=== PATIENT | male | born 1960 | race Caucasian/White ===

== ENCOUNTER 2019-12-08 12:05 | Inpatient (IN) | payer MEDICAID, OTHER ==
[~2019-12-08] VITALS: Ht 172.7 cm; Wt 120.2 kg
[2019-12-08] MEDS ORDERED: LORAZEPAM INJ 2 MG/ML VIAL IVP ONE (13:00)
[2019-12-08] MEDS ORDERED: LORAZEPAM INJ 2 MG/ML VIAL ONE ×2 (13:11→14:52)
--- NOTE | 2019-12-08 13:18 | NUR ---
ABA FROM STREET TO ER BED 5. AAOX1. TACHYPNEIC. BROUGHT IN FOUND ON THE FLOOR LYING GFACING DOWN AND NOTED TO BE IN RESPIRATORY DISTRESS DESCRIDE BY THE PARAMEDICS. WHEN PT WAS ASSISTED TO GET UP, PT GOT AGITATED. UPON ASSESSMENT, PT IS CONFUSED DOES DARWIN MAKE ANY SENSE ON WHAT HE WAS SAYING. ABLE TO FOLLOW SIMPLE COMMANDS. PT IS NOTE TACHYCARDIC ON MONITOR @ 130S AND HYPERTENSIVE. PT IS ALSO PLACED ON O2 VIA NC D/T O2 SAT NOTED @ 92%. WAS AT THE BEDSIDE FOR EVAL ORDERS RECEIVES NOTED AND CARRIED OUT. IV LINE ESTABLSHED ON L WRIST 18G. BLOOD DRAWN AND GIVEN TO MINE EXPLORATION ENGINEER AT BEDSIDE. WILL CONTINUE TO MONITOR PT
[2019-12-08 13:34] LABS: HEMATOCRIT 45 % (39-51); HEMOGLOBIN 15.7 g/dL (13.5-17.5); LYMPHOCYTES # (AUTO) 0.7 /CMM (0.8-4.8); LYMPHOCYTES % (AUTO) 6.1 % (20.0-44.0); MEAN CORPUSCULAR HGB CONC 35 g/dl (31.0-36.0); MEAN CORPUSCULAR VOLUME 120 fL (80-96); MONOCYTES # (AUTO) 1.4 /CMM (0.1-1.30); MONOCYTES % (AUTO) 13.2 % (2.0-12.0); NEUTROPHILS # (AUTO) 8.7 /CMM (1.8-8.9); NEUTROPHILS % (AUTO) 80.7 % (43.0-81.0); PLATELET COUNT (AUTO) 92 /CMM (150-450); RED BLOOD CELL COUNT(AUTO) 3.72 MIL/uL (4.5-6.0); WHITE BLOOD COUNT (AUTO) 10.8 K/uL (4.3-11.0)
[2019-12-08 14:02] LABS: ALANINE AMINOTRANSFERASE 37 U/L (12-78); ALBUMIN 2.8 g/dL (3.4-5.0); ALCOHOL, BLOOD < 3 mg/dL (0-0); ALKALINE PHOSPHATASE 75 U/L (46-116); ASPARTATE AMINOTRANSFERASE 97 U/L (15-37); BILIRUBIN,DIRECT 2.1 mg/dL (0.0-0.2); BILIRUBIN,TOTAL 4.3 mg/dL (0.2-1.0); CALCIUM, SERUM 7.9 mg/dL (8.5-10.1); CARBON DIOXIDE 26 mmol/L (21-32); CHLORIDE 89 mmol/L (98-107); CREATININE 0.9 mg/dL (0.6-1.3); GLUCOSE 151 mg/dL (74-106); SODIUM SERUM 130 mmol/L (136-145); TOTAL PROTEIN, SERUM 7.4 g/dL (6.4-8.2); UREA NITROGEN, BLOOD 6 mg/dL (7-18)
--- NOTE | 2019-12-08 14:02 | NUR ---
ok for ct to be held until pt is not moving around too much
[2019-12-08 14:06] LABS: ACETAMINOPHEN < 3 ug/ml (10-30); POTASSIUM 2.5 mmol/L (3.5-5.1)
--- NOTE | 2019-12-08 14:10 | NUR ---
URINE COLLECTED VIA IN AND OUT WITH STRCIT STERILE TECHNIQUE OBSERVED DURING PROCEDURE. URINE SENT TO LAB
[2019-12-08 14:23] LABS: BILIRUBIN,URINE LARGE (NEGATIVE); BLOOD, URINE Large Ery/uL (NEGATIVE); COLOR,URINE Dark (YELLOW); LEUKOCYTE ESTERASE ,URINE Negative (NEGATIVE); NITRITE, URINE Negative (NEGATIVE); PH,URINE 6.5 (5.0-8.0); PROTEIN,URINE >=300 mg/dl (NEGATIVE); UGLUCOSE 100 MG/DL mg/dL (NEGATIVE); UROBILINOGEN,URINE >=8.0 EU/dL (0.2)
[2019-12-08 14:28] LABS: BACTERIA,URINE Few /HPF (None Seen); SQUAMOUS EPITHELIAL CELL,UR Few /HPF (None Seen)
[2019-12-08 14:29] LABS: THYROID STIMULATING HORMONE 1.193 uIU/mL (0.358-3.74)
--- NOTE | 2019-12-08 14:30 | NUR ---
PAGED [facility].
--- NOTE | 2019-12-08 14:50 | NUR ---
EKG ATD BEDSIDE
--- NOTE | 2019-12-08 14:50 | NUR ---
XRAY AT BEDSIDE
[2019-12-08] MEDS ORDERED: IV NS 0.9% 1,000 ML IV ONE (15:00)
--- NOTE | 2019-12-08 15:02 | NUR ---
CALLED NURSING SUP FOR TELE BED.
[2019-12-08] MEDS ORDERED: POTASSIUM CL. PREMIX PERIPHER. 50 ML ONE ×2 (15:11→16:32)
[2019-12-08] MEDS: POTASSIUM CL. PREMIX PERIPHER. 50 ML IV SCH ×2 (15:17→16:39)
[2019-12-08 15:24] LABS: LYMPHOCYTES % (MANUAL) 6 % (16-48); MONOCYTES % (MANUAL) 5 % (0-11.0); NEUTROPHILS % (MANUAL) 89 (42-76)
--- NOTE | 2019-12-08 15:26 | NUR ---
NURSING SUP GAVE ICU 255.
[2019-12-08] MEDS ORDERED: LORAZEPAM INJ 2 MG/ML VIAL IV ONE (15:30)
[2019-12-08 15:56] LABS: ABG BASE EXCESS -1.6 mmol/L; ABG OXYGEN SATURATION 96.1 % (92.0-98.5); ABG PCO2 24.5 mmHg (35.0-45.0); ABG PH 7.515 (7.350-7.450); ABG PO2 85.5 mmHg (75.0-100.0); AaDO2 142.8 mmHg; COHb 0.8 % (0.5-1.5); MetHb 0.4 % (0.0-1.5); O2Hb 94.9 % (94.0-97.0); SITE, ABG Right Radial
[2019-12-08] MEDS ORDERED: MAGNESIUM HYDROXIDE 30 ML UDC PO PRN (16:00)
[2019-12-08] MEDS ORDERED: IV NS 0.9% 1,000 ML IV PRN (16:00)
[2019-12-08] MEDS ORDERED: ONDANSETRON HCL/PF 4 MG/2 ML VIAL IVP PRN (16:00)
[2019-12-08] MEDS ORDERED: MAG HYDROX/AL HYDROX/SIMETH 30 ML UDC PO PRN (16:00)
[2019-12-08] MEDS ORDERED: ACETAMINOPHEN 325 MG TABLET PO PRN (16:00)
--- NOTE | 2019-12-08 16:01 | NUR ---
called to give report. nurse not yet ready. asked to call back in 15min
--- NOTE | 2019-12-08 16:22 | NUR ---
REPORT GIVEN TO REGINA COFFEY FOR YANETH
[2019-12-08] MEDS ORDERED: FUROSEMIDE 20 MG/2 ML VIAL IV ONE (16:30)
[2019-12-08] MEDS ORDERED: ASPIRIN 325 MG TABLET PO SCH (16:30)
--- NOTE | 2019-12-08 16:32 | NUR ---
CALLED DR SALGADO FOR A DR TO
--- NOTE | 2019-12-08 16:38 | NUR ---
DR KIM NORRIS FOR DR AN
[2019-12-08] MEDS ORDERED: PROPOFOL 100 ML ONE ×4 (16:42→23:55)
[2019-12-08] MEDS ORDERED: CEFTRIAXONE 1 G in IV D5W 50 ML IV SCH (17:00)
[2019-12-08] MEDS ORDERED: ENOXAPARIN SODIUM 40 MG/0.4 ML DISP.SYRIN SQ SCH (17:00)
--- NOTE | 2019-12-08 17:24 | NUR ---
RAPID COVID RESULT: NEGATIVE
--- NOTE | 2019-12-08 17:24 | NUR ---
md was at the bedside ready for intubation and central line insertion. pt is aao but pt is refusing to be intubated nor insert a central line. md and nurse explained to pt multiple times about the risk and benefits. pt made aware the he can , pt acknowledge.
--- NOTE | 2019-12-08 17:25 | NUR ---
CALLED DR ALVAREZ FOR A DR TO SPEAKING ON PHONE NOW.
--- NOTE | 2019-12-08 17:27 | NUR ---
MADE HOUSE SUP AWARE OF RAPID COVID RESULT
[2019-12-08] MEDS ORDERED: NOREPINEPHRINE 8 MG in IV NS 0.9% 250 ML IV ONE (17:30)
[2019-12-08] MEDS ORDERED: AZITHROMYCIN 500 MG in IV D5W 250 ML IV SCH (18:00)
--- NOTE | 2019-12-08 18:01 | NUR ---
md at bedside ready for intubation. vs
[2019-12-08] MEDS: NOREPINEPHRINE 8 MG in IV NS 0.9% 242 ML IV PRN (18:05)
[2019-12-08] MEDS: PIPERACILLIN /TAZOBACTAM 3.375 G in IV D5W 50 ML IV SCH (18:10)
--- NOTE | 2019-12-08 18:14 | NUR ---
Etomidate 20mg ivp x 1
--- NOTE | 2019-12-08 18:15 | NUR ---
succicholine 120mg ivp x 1
--- NOTE | 2019-12-08 18:17 | NUR ---
intubation attempt. unsuccessfull. continue bagging
--- NOTE | 2019-12-08 18:19 | NUR ---
PT INTUBATED 23 @ LIP ET 8. VENT SETTING AC16 VT600 O2 100% +5 PEEP
--- NOTE | 2019-12-08 18:19 | NUR ---
RT NOTE PT INTUBATED VIA 8.0 ETT @ 25 CM LIPLINE FOR POSSIBLE [place]. BILATERAL BS, POSITIVE COLOR CHANGE, AND EVEN CHEST RISE NOTED. [facility] ON ORDERED SETTINGS FROM . ALARMS ARE SET AND AUDIBLE. VENT PLUGGED INTO RED OUTLET. NO SOB NOTED @ THIS TIME.
--- NOTE | 2019-12-08 18:23 | NUR ---
PT ON BILAT SOFT RESTRAINT TO PREVENT TUBE FROM GETTIN GPULLED IN AN EVENT WHERE THE PATIENT AWAKENS AND TRIES TO PULL TUBES. VS
--- NOTE | 2019-12-08 18:23 | NUR ---
PROPOFOL 50MCG/KG/HR STARTED PER MD ORDERED
--- NOTE | 2019-12-08 18:32 | NUR ---
PT STILL AWAKE AND MOVING AROUND. PROPOFOL INCREASED TO 60MCG/KG/HR
--- NOTE | 2019-12-08 18:54 | NUR ---
TO CT ON GURNEY WITH EMT, RT AND RN AT BEDSIDE. ON MONITOR
--- NOTE | 2019-12-08 19:00 | NUR ---
PT IS STILL WAKING UP AND STILL MOVING HIS ARMS. PROPOFOL INCEASED TO 70MCG/KG/HR.
--- NOTE | 2019-12-08 19:08 | NUR ---
LILA TRINIDAD: BROTHER: [phone]
[2019-12-08 19:17] LABS: B-TYPE NATRIURETIC PEPTIDE 9442 PG/ML (0-125); MAGNESIUM 1.4 mg/dL (1.8-2.4); PHOSPHORUS 1.9 mg/dL (2.5-4.9)
--- NOTE | 2019-12-08 19:25 | NUR ---
DR QURESHI CALLED FOR A DR TO [phone]. SPEAKING TO MD MENDOZA
--- NOTE | 2019-12-08 19:42 | NUR ---
RT pt taken to ct. no complications. pt placed back on vent. will continue to monitor.
--- NOTE | 2019-12-08 19:55 | NUR ---
AT BEDSIDE INSERTING CENTRAL LINE
[2019-12-08] MEDS ORDERED: IV NS 0.9% 500 ML BAG IV ONE (20:00)
[2019-12-08 20:27] LABS: THYROID STIMULATING HORMONE 1.803 uIU/mL (0.358-3.74)
[2019-12-08] MEDS ORDERED: VANCOMYCIN 1 GM in IV D5W 250 ML IV SCH (20:30)
[2019-12-08] MEDS ORDERED: LORAZEPAM INJ 2 MG/ML VIAL IV PRN (20:30)
[2019-12-08] MEDS ORDERED: FUROSEMIDE 20 MG/2 ML VIAL ONE (20:33)
--- NOTE | 2019-12-08 21:03 | NUR ---
RT pt taken to ct and back. no complications. spo2 95-97% throughout procedure. pt returned to er room 5. placed back on monitor and will continue to monitor. no resp distress, no sob.
--- NOTE | 2019-12-08 21:10 | NUR ---
report given to fidelia nath for tricia
--- NOTE | 2019-12-08 21:30 | NUR ---
called the hospitalist Marybeth to get propofol orders for the client at 70mcg; and levophed. Hospitalist has approved the orders.
[2019-12-08 22:49] LABS: ABG BASE EXCESS 0.9 mmol/L; ABG OXYGEN SATURATION 99.1 % (92.0-98.5); ABG PCO2 33.9 mmHg (35.0-45.0); ABG PH 7.467 (7.350-7.450); ABG PO2 268.7 mmHg (75.0-100.0); AaDO2 410.4 mmHg; COHb 0.3 % (0.5-1.5); MetHb 0.6 % (0.0-1.5); O2Hb 98.2 % (94.0-97.0); PEEP,BG 5 cm H2O; SITE, ABG Right Radial; VENT MODE, BG AC 16 600 100% +5
--- NOTE | 2019-12-08 22:52 | NUR ---
F/C INSERTED PER MD ORDEREDL. 16FR/10ML. STRICT STERILE TECHNIQUE OBSERVED DURING PROCEDURE
--- NOTE | 2019-12-08 23:04 | NUR ---
back from ct
[2019-12-08] MEDS ORDERED: NOREPINEPHRINE 4 MG/4 ML AMPUL IV ONE (23:10)
[2019-12-09] VITALS (86 sets, daily range): BP systolic 79–149; BP diastolic 42–106
--- NOTE | 2019-12-09 00:02 | NUR ---
REGINA HARE OF ICU UPDATED THAT PT HAVE SUBARCHNOID HEMMORHAGE. CTA IS NEGATIVE FOR ANEURYSM
[2019-12-09] MEDS ORDERED: NOREPINEPHRINE 8MG/250ML RTU 250 ML IV ONE (00:04)
--- NOTE | 2019-12-09 00:15 | NUR ---
RN OPENING NOTES Received the client form ED. CLient is sedated on 70mcg of deprivan; client is also on levo at 0.3 mcg, BP WNL. Client is on full vent support, setting as charted, NG TUBE at 10/28. Mcmahon cath noted. Will continue to monitor. Client exhibits no s/s of distres nor pain at this time. Will continue to monitor.
--- NOTE | 2019-12-09 00:21 | NUR ---
pt transported to unit [place] [address] with emt, rt and rn at bedside with acls protocol. nad noted during transport.
[2019-12-09] MEDS ORDERED: VANCOMYCIN 1 GM VIAL ONE (00:25)
--- NOTE | 2019-12-09 00:34 | NUR ---
RT pt transported to unit with no complications. vent plugged in to red outlet. ambu bag at [facility]. no sob. no resp distress. will continue to monitor.
[2019-12-09] MEDS ORDERED: CEFTRIAXONE 1 G VIAL ONE (00:44)
[2019-12-09] MEDS ORDERED: PIPERACILLIN /TAZOBACTAM 3.375 G VIAL IV ONE ×2 (00:48→05:20)
[2019-12-09] MEDS: PIPERACILLIN /TAZOBACTAM 3.375 G in IV D5W 50 ML IV SCH ×4 (00:51→17:40)
[2019-12-09] MEDS ORDERED: IV NS 0.9% 250 ML BAG IV ONE (01:00)
[2019-12-09] MEDS: PROPOFOL 100 ML IV PRN ×10 (01:16→21:35)
[2019-12-09] MEDS ORDERED: AZITHROMYCIN 500 MG VIAL ONE (01:45)
[2019-12-09] MEDS: POTASSIUM CL. PREMIX PERIPHER. 50 ML IV SCH ×10 (03:33→17:03)
[2019-12-09] MEDS: NOREPINEPHRINE 8 MG in IV NS 0.9% 242 ML IV PRN ×4 (04:14→22:21)
[2019-12-09 05:21] LABS: BASOPHILS % (AUTO) 0.1 % (0.0-2.0); HEMATOCRIT 46 % (39-51); HEMOGLOBIN 15.9 g/dL (13.5-17.5); LYMPHOCYTES # (AUTO) 1.6 /CMM (0.8-4.8); LYMPHOCYTES % (AUTO) 9.1 % (20.0-44.0); MEAN CORPUSCULAR HGB CONC 35 g/dl (31.0-36.0); MEAN CORPUSCULAR VOLUME 122 fL (80-96); MONOCYTES # (AUTO) 2.8 /CMM (0.1-1.30); MONOCYTES % (AUTO) 15.7 % (2.0-12.0); NEUTROPHILS # (AUTO) 13.4 /CMM (1.8-8.9); NEUTROPHILS % (AUTO) 75.1 % (43.0-81.0); PLATELET COUNT (AUTO) 135 /CMM (150-450); RED BLOOD CELL COUNT(AUTO) 3.72 MIL/uL (4.5-6.0); WHITE BLOOD COUNT (AUTO) 17.9 K/uL (4.3-11.0)
[2019-12-09 05:31] LABS: ALBUMIN 2.4 g/dL (3.4-5.0); CREATININE 1.7 mg/dL (0.6-1.3); MAGNESIUM 1.4 mg/dL (1.8-2.4); PHOSPHORUS 1.8 mg/dL (2.5-4.9); TOTAL PROTEIN, SERUM 6.6 g/dL (6.4-8.2)
[2019-12-09] MEDS ORDERED: POTASSIUM CL. PREMIX PERIPHER. 50 ML IV SCH ×3 (06:00→08:00)
--- NOTE | 2019-12-09 06:15 | NUR ---
SPOKE WITH THE HOSPITALIST ABOUT POTASSIUM 2.0. HOSPITALIST REMENDS 10MEQ AND A BLOOD TEST FOR POTASSIUM AFTER THE INFUSION IS FINISHED.
--- NOTE | 2019-12-09 06:56 | NUR ---
RN CLOSING NOTES THE CLIENT REMAINS STABLE AT THIS TIME, NO S/S OF DISTRESS NOTED. CLIENT DENIES PAIN. CLIENT IS ON FULL VENT SUPPORT. PROPOFOL 70MCG; LEVO 0.2 MCG RUNNING AT THIS TIME. FC DRAINING WELL. NGT 23 AT LIP. ALL SAFETY MECHANISMS IN PLACE, COMFORT MEASURE PROVIED, WILL ENDORSE THE INCOMING NURSE FOR CONTINUITY OF CARE.
[2019-12-09] MEDS ORDERED: Magnesium 1GM/D5W 100ML PREMIX 100 ML IV SCH ×2 (08:00→08:30)
--- NOTE | 2019-12-09 08:00 | NUR ---
ICU/RN: PT SEEN BY . AWARE OF ELEVATED TROPS. NO NEW ORDERS AT THIS TIME.
--- NOTE | 2019-12-09 08:00 | NUR ---
ICU/RN: INITIAL NOTES,AM RECEIVED REPORT FROM NIGHT NURSE. PT INTUBATED ETT8, 23CM AT THE LIP, ON VENT SETTINGS ORDERED, NO ACUTE DISTRESS NOTED. PT SEDATED ON DIPRIVAN, SEDATION VACATION WILL BE DONE. PT SINUS ON TELE WITH BBB. PT CURRENTLY NPO, NG TUBE IN PLACE, PLACEMENT VERIFIED. TUBE CLAMPED. LEVO INFUSING FOR BP SUPPORT. RIGHT IJ INTACT AND PATENT, NO S/S OF INFECTION OR INFILTRATION NOTED. ALL NEEDS WILL BE ATTENDED TO, SAFETY MEASURES TAKEN, BED IN LOW POSITION, SIDE RAILS UP, CALL LIGHT WITHIN REACH. WILL CONTINUE CARE. NEURO ASSESSMENTS WILL BE DONE.
[2019-12-09] MEDS: PANTOPRAZOLE 40 MG TABLET.DR PO SCH (08:29)
[2019-12-09] MEDS: Magnesium 1GM/D5W 100ML PREMIX 100 ML IV SCH ×4 (08:47→12:01)
[2019-12-09] MEDS ORDERED: ASPIRIN 81 MG TAB.CHEW PO SCH (09:00)
[2019-12-09] MEDS ORDERED: POTASSIUM PHOSPHATE MM 15 MMOL in IV NS 0.9% 250 ML IV SCH (09:00)
[2019-12-09] MEDS: IV NS 0.9% 1,000 ML IV SCH ×3 (09:25→18:48)
[2019-12-09] MEDS: HYDROCORTISONE SOD SUCCINATE 100 MG/2 ML VIAL IV SCH ×2 (09:32→16:11)
--- NOTE | 2019-12-09 09:40 | NUR ---
ICU/RN: SEDATION VACATION DONE. PT OPENS EYES, FOLLOWS SIMPLE COMMANDS. WILL RESUME SEDATION, PT NOTED WITH INCREASED WORK OF BREATHING, DISTRESS
[2019-12-09 09:47] LABS: LYMPHOCYTES % (MANUAL) 11 % (16-48); MONOCYTES % (MANUAL) 5 % (0-11.0); NEUTROPHILS % (MANUAL) 84 (42-76)
--- NOTE | 2019-12-09 10:00 | NUR ---
ICU/RN: AT BEDSIDE. PT ASSESSED. WILL CARRY OUT ORDERS. NO ACUTE DISTRESS AT THIS TIME. REPLACEMENTS OF ELECTROLYTES RECEIVED.
--- NOTE | 2019-12-09 11:00 | NUR ---
AT BEDSIDE. PT ASSESSED. NEUROSURGERY CONSULT PENDING.
[2019-12-09 11:33] LABS: ABG BASE EXCESS -2.3 mmol/L; ABG OXYGEN SATURATION 94.2 % (92.0-98.5); ABG PCO2 27.4 mmHg (35.0-45.0); ABG PH 7.475 (7.350-7.450); ABG PO2 62.7 mmHg (75.0-100.0); COHb 0.8 % (0.5-1.5); O2Hb 93.4 % (94.0-97.0); PEEP,BG 5 cm H2O; SITE, ABG Right Radial; VT, ABG 500 mL
[2019-12-09 11:50] LABS: CALCIUM, SERUM 6.5 mg/dL (8.5-10.1); CREATININE 2.2 mg/dL (0.6-1.3)
[2019-12-09 12:03] LABS: POTASSIUM 2.8 mmol/L (3.5-5.1)
--- NOTE | 2019-12-09 14:00 | NUR ---
ICU/RN: PT SEEN BY , FREQUENT NEURO CHECKS NEEDED. NO SURGICAL INTERVENTION NEEDED AT THIS TIME. WILL CONTINUE TO MONITOR.
--- NOTE | 2019-12-09 16:00 | NUR ---
TMAX 102.8 NOTED, COOLING MEASURES TAKEN, TYLENOL ADMINISTERED. WILL REASSESS
[2019-12-09] MEDS: ACETAMINOPHEN 325 MG TABLET PO PRN (16:11)
--- NOTE | 2019-12-09 19:30 | NUR ---
RN OPENING NOTES PT CONTINUES ON VENT SETTINGS ORDERED. ETT 8.0, 23 CM AT THE LIP. LEVO INFUSING FOR BP SUPPORT, DIPRIVAN FOR SEDATION. PT NOW AFEBRILE. WILL CONTINUE TO MONITOR. ALL NEEDS ATTENDED, SAFETY MEASURES IN PLACE, BED IN LOW POSITION, SIDE RAILS UP, CALL LIGHT WITHIN REACH. WILL CONTINUE CARE. BILATERAL SOFT WRIST RESTRAINTS IN PLACE, WILL CONTINUE TO MONITOR.
--- NOTE | 2019-12-09 19:33 | NUR ---
ICU/RN: ENDING NOTES,AM REPORT ENDORSED TO NIGHT NURSE FOR CONTINUATION OF CARE. PT CONTINUES ON VENT SETTINGS ORDERED. ETT 8.0, 23 CM AT THE LIP. LEVO INFUSING FOR BP SUPPORT, DIPRIVAN FOR SEDATION. PT NOW AFEBRILE. WILL CONTINUE TO MONITOR. ALL NEEDS ATTENDED TO, SAFETY MEASURES TAKEN, BED IN LOW POSITION, SIDE RAILS UP, CALL LIGHT WITHIN REACH. WILL CONTINUE CARE. BILATERAL SOFT WRIST RESTRAINTS IN PLACE, ASSESSED PER PROTOCOL
--- NOTE | 2019-12-09 20:37 | NUR ---
RECEIVED PT INTUBATED 8.0 ETT AT 25CM LIP LINE. NO RESP DISTRESS. PT TOLERATING VENT SETTINGS. AMBU BAG AT BEDSIDE. VENT ALARMS SET AND AUDIBLE. WILL CONTINUE TO MONITOR. Addendum: 12/09/19 at 2037 by SRIRAM GIANG RT Amended: Links added.
[2019-12-09] MEDS: AZITHROMYCIN 500 MG in IV D5W 250 ML IV SCH (21:14)
[2019-12-09 23:41] LABS: BILIRUBIN,URINE SMALL (NEGATIVE); BLOOD, URINE LARGE Ery/uL (NEGATIVE); COLOR,URINE YELLOW (YELLOW); LEUKOCYTE ESTERASE ,URINE SMALL (NEGATIVE); NITRITE, URINE NEGATIVE (NEGATIVE); PROTEIN,URINE 100 mg/dl (NEGATIVE); UGLUCOSE NEGATIVE (NEGATIVE)
[2019-12-09 23:56] LABS: CREATININE, URINE 167.5 MG/DL (30.0-125.0); URINE TOTAL PROTEIN 148.6 mg/dL (0-11.9)
[2019-12-10] VITALS (98 sets, daily range): BP systolic 77–148; BP diastolic 46–88
[2019-12-10 00:10] LABS: BACTERIA,URINE None seen /HPF (None Seen); EOSINOPHIL,URINE None Seen; SQUAMOUS EPITHELIAL CELL,UR Few /HPF (None Seen)
[2019-12-10] MEDS: PROPOFOL 100 ML IV PRN ×7 (00:36→21:42)
[2019-12-10] MEDS: PIPERACILLIN /TAZOBACTAM 3.375 G in IV D5W 50 ML IV SCH ×4 (00:42→18:38)
[2019-12-10] MEDS: IV NS 0.9% 1,000 ML IV PRN ×3 (00:42→23:15)
[2019-12-10] MEDS: HYDROCORTISONE SOD SUCCINATE 100 MG/2 ML VIAL IV SCH ×3 (01:12→18:38)
[2019-12-10] MEDS: NOREPINEPHRINE 8 MG in IV NS 0.9% 242 ML IV PRN ×3 (01:39→17:09)
[2019-12-10 05:19] LABS: HEMATOCRIT 44 % (39-51); HEMOGLOBIN 15.2 g/dL (13.5-17.5); LYMPHOCYTES # (AUTO) 0.9 /CMM (0.8-4.8); LYMPHOCYTES % (AUTO) 4.2 % (20.0-44.0); MEAN CORPUSCULAR HGB CONC 35 g/dl (31.0-36.0); MEAN CORPUSCULAR VOLUME 122 fL (80-96); MONOCYTES # (AUTO) 1.9 /CMM (0.1-1.30); MONOCYTES % (AUTO) 8.3 % (2.0-12.0); NEUTROPHILS # (AUTO) 19.7 /CMM (1.8-8.9); NEUTROPHILS % (AUTO) 87.5 % (43.0-81.0); PLATELET COUNT (AUTO) 168 /CMM (150-450); RED BLOOD CELL COUNT(AUTO) 3.59 MIL/uL (4.5-6.0); WHITE BLOOD COUNT (AUTO) 22.5 K/uL (4.3-11.0)
[2019-12-10 05:31] LABS: BILIRUBIN,TOTAL 4.4 mg/dL (0.2-1.0); CALCIUM, SERUM 6.3 mg/dL (8.5-10.1); CREATININE 3.1 mg/dL (0.6-1.3); MAGNESIUM 2.3 mg/dL (1.8-2.4); PHOSPHORUS 3.6 mg/dL (2.5-4.9); POTASSIUM 3.1 mmol/L (3.5-5.1); TOTAL PROTEIN, SERUM 6.4 g/dL (6.4-8.2)
[2019-12-10] MEDS ORDERED: NOREPINEPHRINE 8MG/250ML RTU 0 ML IV ONE (06:33)
--- NOTE | 2019-12-10 06:46 | NUR ---
ICU/RN: ENDING NOTES,AM REPORT ENDORSED TO NIGHT NURSE FOR CONTINUATION OF CARE. PT CONTINUES ON VENT SETTINGS ORDERED. ETT 8.0, 23 CM AT THE LIP. LEVO INFUSING FOR BP SUPPORT, DIPRIVAN FOR SEDATION. WILL CONTINUE TO MONITOR. ALL NEEDS ATTENDED TO, SAFETY MEASURES TAKEN, BED IN LOW POSITION, SIDE RAILS UP, CALL LIGHT WITHIN REACH. WILL CONTINUE CARE. BILATERAL SOFT WRIST RESTRAINTS IN PLACE, ASSESSED PER PROTOCOL.
--- NOTE | 2019-12-10 08:20 | NUR ---
RT PATIENT REC'D ORALLY INTUBATED ON [facility] VENT WITH ORDERED SETTINGS VIKTORIYA WELL. ALARMS CHECKED + AUDIBLE. AMBU BAG AT HOB. PATIENT SEDATED AND IN NO RESP DISTRESS. Addendum: 12/10/19 at 1748 by CAROLYNE MCCORMACK RT Amended: Links added.
[2019-12-10] MEDS: PANTOPRAZOLE 40 MG TABLET.DR PO SCH (09:46)
[2019-12-10] MEDS: POTASSIUM CHLORIDE 20 MEQ POWDER PACKET GT SCH ×2 (09:46→09:47)
[2019-12-10] MEDS ORDERED: ETOMIDATE 2 MG/ML VIAL ONE (11:00)
[2019-12-10] MEDS ORDERED: SUCCINYLCHOLINE CHLORIDE 20 MG/ML VIAL ONE (11:00)
[2019-12-10] MEDS: LEVETIRACETAM (500MG) 500 MG in IV NS 0.9% 100 ML IV SCH (12:57)
[2019-12-10 13:09] LABS: CREATININE 3.2 mg/dL (0.6-1.3); POTASSIUM 4.1 mmol/L (3.5-5.1)
[2019-12-10 14:06] LABS: CALCIUM, SERUM 5.6 mg/dL (8.5-10.1)
[2019-12-10] MEDS ORDERED: IV Sodium Chloride 3% 500 ML 500 ML IV SCH (15:00)
[2019-12-10] MEDS ORDERED: Calcium Gluconate 1GM/10ML 4.65 MEQ in IV D5W 50 ML IV ONE (15:00)
--- NOTE | 2019-12-10 19:30 | NUR ---
RN NOTES RECEIVED PATIENT IN BED ON VENT SETTING TOLERATING WELL ORDERED AND ON DIPRIVAN FOR SEDATION. TELE MONITOR SR IN 80'S. NO S/S OF DISTRESS NOTED. IV SITES ARE INTACT FLUIDS AND ATB RUNNING WELL NO SWELLING NO INFILTRATION NOTED. VITAL SIGNS WNL. F/C INTACT YELLOW URINE RUNNING TO GRAVITY WITH MINIMAL URINE OUT PUT NOTED. BUE SOFT RESTRAINS IN PLACE FOR SAFETY. SAFETY MEASURES IN PLACE, CALL LIGHT WITHIN REACH, SIDE RAILS UP. WILL CONT TO MONITOR FOR YANETH.
--- NOTE | 2019-12-10 19:36 | NUR ---
END OF SHIFT NOTE: PT HAD A FAIRLY UNEVENTFUL SHIFT. NO SEDATION VACATION PER MD ORDERS. 3% SOLUTION INFUSING PER MD ORDERS TO END AFTER 200ML TOTAL. CALCIUM INFUSING COMPLETED PER MD ORDERS. VERY LITTLE URINE OUTPUT THIS SHIFT 122 ML TOTAL. FI02 AT THIS TIME IS 40%. LEVOPHED TITRATED PER MD ORDERS, CURRENTLY INFUSING AT 0.08 MCG/KG/MIN. PT CHECKED ON HOURLY AND PRN BY NURSING STAFF.
[2019-12-10] MEDS: AZITHROMYCIN 500 MG in IV D5W 250 ML IV SCH (20:35)
[2019-12-11] VITALS (60 sets, daily range): BP systolic 83–123; BP diastolic 47–77
[2019-12-11] MEDS: PROPOFOL 100 ML IV PRN ×9 (00:07→23:19)
[2019-12-11] MEDS: LEVETIRACETAM (500MG) 500 MG in IV NS 0.9% 100 ML IV SCH ×3 (00:08→23:30)
[2019-12-11] MEDS: PIPERACILLIN /TAZOBACTAM 3.375 G in IV D5W 50 ML IV SCH ×4 (00:08→17:32)
[2019-12-11] MEDS: HYDROCORTISONE SOD SUCCINATE 100 MG/2 ML VIAL IV SCH ×3 (01:04→17:32)
--- NOTE | 2019-12-11 05:00 | NUR ---
BED BATH GIVEN PATIENT TOLERATED WELL.
[2019-12-11 05:11] LABS: BASOPHILS % (AUTO) 0.1 % (0.0-2.0); HEMATOCRIT 41 % (39-51); HEMOGLOBIN 14.1 g/dL (13.5-17.5); LYMPHOCYTES # (AUTO) 0.5 /CMM (0.8-4.8); LYMPHOCYTES % (AUTO) 2.3 % (20.0-44.0); MEAN CORPUSCULAR HGB CONC 34 g/dl (31.0-36.0); MEAN CORPUSCULAR VOLUME 124 fL (80-96); MONOCYTES # (AUTO) 1.4 /CMM (0.1-1.30); MONOCYTES % (AUTO) 6.8 % (2.0-12.0); NEUTROPHILS % (AUTO) 90.8 % (43.0-81.0); PLATELET COUNT (AUTO) 202 /CMM (150-450); RED BLOOD CELL COUNT(AUTO) 3.34 MIL/uL (4.5-6.0); WHITE BLOOD COUNT (AUTO) 19.8 K/uL (4.3-11.0)
[2019-12-11 05:24] LABS: ALBUMIN 1.8 g/dL (3.4-5.0); BILIRUBIN,TOTAL 2.9 mg/dL (0.2-1.0); CALCIUM, SERUM 6.2 mg/dL (8.5-10.1); CREATININE 4.2 mg/dL (0.6-1.3); MAGNESIUM 2.3 mg/dL (1.8-2.4); PHOSPHORUS 4.5 mg/dL (2.5-4.9); POTASSIUM 3.8 mmol/L (3.5-5.1); TOTAL PROTEIN, SERUM 6.1 g/dL (6.4-8.2)
[2019-12-11] MEDS: NOREPINEPHRINE 8 MG in IV NS 0.9% 242 ML IV PRN ×2 (05:34→15:10)
--- NOTE | 2019-12-11 07:10 | NUR ---
RN OPENING NOTE: Received patient in bed and sedated. On mechanical ventilation via ETT with saturation noted @ 90%. No SOB and not in respiratory distress. Tele monitor showing sinus rhythm in the 70s. IV site clean, dry, patent and intact. Infusion of Levophed @ 0.08mcg/kg/min, Propofol @ 40mcg/kg/min and NS @ 100mls/hr being tolerated well. Mcmahon catheter patent and in place, draining dark, benjamin colored urine. No pain noted on patient. Call light in reach. Bed locked, low and at semi-saucedo's position. Side rails up x3. Safety ensured and observed. Will continue to monitor.
--- NOTE | 2019-12-11 07:39 | NUR ---
RN NOTES PATIENT CONTINUES ON DIPRIVAN TITRATED TO 40MEQ/HR TOLERATING WELL. VENT SETTING TOLERATING WELL ORDERED. VITAL SIGNS WNL, AFBRILE. NO S/S FO ACUTE DISTRESS NOTED. VITAL SIGNS WNL. SKIN PICTURES NOT TAKEN PER CHARGE NURSE ED . F/C INTACT YELLOW URINE RUNNING TO GRAVITY WITH MINIMAL URINE OUT PUT NOTED. BUE SOFT RESTRAINS IN PLACE FOR SAFETY. Addendum: 12/11/19 at 0741 by NATANAEL MOSHER RN ENDORSE TO AM NURSE FOR YANETH.
[2019-12-11] MEDS: PANTOPRAZOLE 40 MG TABLET.DR PO SCH (08:06)
--- NOTE | 2019-12-11 08:43 | NUR ---
WOUND CARE CONSULT: PT PRESENTS WITH DRY SCAB TO ABDOMEN, DRY SCABS AND SCARS TO LOWER EXTREMITIES AND RASH TO ABDOMINAL/GROIN FOLDS, PRESENT ON ADMISSION. RECOMMENDATIONS MADE FOR SKIN PROTECTION. DISCUSSED WITH NURSING STAFF. PT TO BE PLACED ON [place]BESON ISOFLEX LOW AIRLOSS BED. WILL SEE PRN. DRAKE IN AGREEMENT WITH PLAN OF CARE. Addendum: 12/11/19 at 0844 by JOSHUA HA WNDNU Amended: Links added.
--- NOTE | 2019-12-11 09:00 | NUR ---
RN note: Patient is having frequent neurological assessment done in interventions. The patient is currently on sedation, assessment completed by Nurse on patient is what is observed at the moment.
[2019-12-11] MEDS: IV NS 0.9% 1,000 ML IV PRN ×2 (09:10→21:49)
[2019-12-11 09:32] LABS: ABG BASE EXCESS -9.9 mmol/L; ABG OXYGEN SATURATION 97.3 % (92.0-98.5); ABG PCO2 27.4 mmHg (35.0-45.0); ABG PH 7.335 (7.350-7.450); ABG PO2 103.5 mmHg (75.0-100.0); AaDO2 222.2 mmHg; COHb 0.7 % (0.5-1.5); MetHb 0.3 % (0.0-1.5); O2Hb 96.3 % (94.0-97.0); PEEP,BG 5 cm H2O; SITE, ABG Right Radial; VT, ABG 500 mL
[2019-12-11] MEDS: CLOTRIMAZOLE 1% 15 GM TUBE TP SCH ×2 (10:00→17:32)
[2019-12-11 11:36] LABS: CREATININE 4.5 mg/dL (0.6-1.3); POTASSIUM 3.7 mmol/L (3.5-5.1)
[2019-12-11 11:51] LABS: CALCIUM, SERUM 5.9 mg/dL (8.5-10.1)
[2019-12-11] MEDS: AZITHROMYCIN 500 MG in IV D5W 250 ML IV SCH ×2 (13:22→21:00)
--- NOTE | 2019-12-11 15:04 | NUR ---
rn note: Per Dr. Zamorano: Ok to continue Propofol drip with current Triglyceride level of 417.
--- NOTE | 2019-12-11 15:19 | NUR ---
Quality Control Scientist consult as patient is homeless. Patient is currently remain on ventilator and is sedated. SW [facility] has any family.
--- NOTE | 2019-12-11 16:00 | NUR ---
RN NOTE: MISTAKENLY SCANNED AND SAVED ADMINISTRATION ON AZITHROMYCIN DOSE DUE @ 2100. DOSE REMAINS NOT GIVEN. INFORMED ZULMA FROM PHARMACY, WILL UNDO ADMINISTRATION.
--- NOTE | 2019-12-11 17:21 | NUR ---
RT 0804: RECEIVED PT ORALLY INTUBATED ETT 8.5 MARKED @ 25CM LIP LINE WITH NOTED SETTINGS. MORTICIAN INVESTIGATOR DONE AND TUBE IS SECURE W/ ANCHOR FAST. VENT ALARMS CHECKED AND AUDIBLE. VENT PLUGGED IN RED OUTLET. OLGA B/S, SX W/ MOD THK BENDER SECRETIONS. AMBU BAG NOTED HOB. FIO2 WAS INCREASED TO 50% DUE TO LOW SPO02, RN AWARE. 0932: ABG DONE AND RESULTS RELAYED TO RN AND MD. 0935: PER DR TSAI, LEAVE PT IS WITH NO CHANGES TO VENT SETTINGS. 1721: PT TOLERATING SETTINGS WELL T/O SHIFT. NO SOB OR RESP DISTRESS NOTED. WILL ENDORSE TO NOC SHIFT FOR YANETH.
--- NOTE | 2019-12-11 19:19 | NUR ---
RN CLOSING NOTE: Patient remains in bed and sedated. On mechanical ventilation via ETT with saturation noted @ 94%, Sedation vacation done on shift, Fio2 increased to 50%. No SOB and not in respiratory distress. Tele monitor showing sinus rhythm in the 70s. IV site clean, dry, patent and intact. Infusion of Levophed @ 0.08mcg/kg/min, Propofol @ 45mcg/kg/min and NS @ 100mls/hr being tolerated well. Mcmahon catheter patent and in place, draining dark, benjamin colored urine. No pain noted on patient. Azithromycin dose due @ 2100 mistakenly scanned and saved still not undone by pharmacy. Will inform oncoming nurse. Call light in reach. Bed locked, low and at semi-saucedo's position. Side rails up x3. Safety ensured and observed. Due medications given. Treatment given as ordered. Endorsed to oncoming shift for YANETH
--- NOTE | 2019-12-11 19:39 | NUR ---
INSPECTOR AND SORTER OPENING NOTE: Rec'd pt in bed, sedated and intubated 8/23cm at the lip. Tolerating settings well. No SOB or resp distress noted. Breathing even and unlabored. Sinus rhythm on tele monitor. NPO status. IV site on left hand #18 and right intrajugular triple lumen patent and flushed. Dressing c/d/i. Levo infusing at 0.08mcg/kg/min. Will titrate per protocol. Diprivan infusing at 40mcg/kg/min. NS infusing at 100ml/hr. Bilateral soft wrist restraints noted. Will remove and check circulation per protocol. Mcmahon catheter in place patent and draining urine. Safety measures in place. Will continue to monitor. Addendum: 12/11/19 at 2028 by NURIS SOL RN DIPRIVAN AT 45MCG/KG/MIN NOT 40
--- NOTE | 2019-12-11 20:41 | NUR ---
HAND BRIM IRONER NOTE: Spoke w/ Jeyson, pharmacist about undoing 2100 Zithromax. Per Jeyson, morning nurse needed to undo the administration. Ok to go ahead and do unscheduled administration.
[2019-12-12] VITALS (95 sets, daily range): BP systolic 85–116; BP diastolic 51–78
[2019-12-12] MEDS: PIPERACILLIN /TAZOBACTAM 3.375 G in IV D5W 50 ML IV SCH ×4 (00:09→17:02)
[2019-12-12] MEDS: HYDROCORTISONE SOD SUCCINATE 100 MG/2 ML VIAL IV SCH ×3 (01:06→16:29)
[2019-12-12] MEDS: PROPOFOL 100 ML IV PRN ×8 (01:30→22:00)
[2019-12-12] MEDS: IV NS 0.9% 1,000 ML IV PRN ×2 (06:51→16:49)
[2019-12-12] MEDS: NOREPINEPHRINE 8 MG in IV NS 0.9% 242 ML IV PRN (06:59)
--- NOTE | 2019-12-12 07:09 | NUR ---
CUTTER BARREL DRUM CLOSING NOTES: Pt remains stable throughout shift. Tolerating vent settings well. No SOB or resp distress noted. No pain noted throughout shift. SR on tele monitor. IV lines patent and flushed. Diprivan infusing at 45mcg/kg/min, Levo infusing at 0.02mcg/kg/min, NS infusing at 100ml/hr. Tolerating well. Mcmahon in place patent and draining urine via gravity. All due meds given as ordered. Kept clean/dry. Safety measures in place. Will endorse to oncoming nurse for YANETH.
--- NOTE | 2019-12-12 07:40 | NUR ---
ICU/RN PT IS INTUBATED ON THE VENT AC MODE,FIO2-50%. SAT O2-95%. SEDATED ON DIPRIVAN.ON LEVOPHED DRIP.AND IV FLUIDS.RIGHT SUBCLAVIAN TLC. RIGHT NG TUBE CLAMPED.F/C IN PLACE NO URINE OUTPUT.MD NOTIFIED.BILATERAL SOFT WRIST RESTRAINS ON.PT IS OBESE.GENERALIZED EDEMA PRESENT.REDNESS ON ABDOMINAL FOLD JACE AREA AND LOWER BACK NOTED.SUCTION PROVIDED REPOSITION FOR COMFORT.
--- NOTE | 2019-12-12 07:45 | NUR ---
RT PATIENT REC'D ORALLY INTUBATED ON [facility] VENT WITH ORDERED SETTINGS VIKTORIYA WELL. ETT SECURE AND IN PROPER POSITION. ALARMS CHECKED + AUDIBLE. AIRWAY SUCTIONED AND PATENT. AMBU BAG AT HOB. Addendum: 12/12/19 at 0836 by CAROLYNE MCCORMACK RT Amended: Links added.
[2019-12-12] MEDS: CLOTRIMAZOLE 1% 15 GM TUBE TP SCH ×2 (08:23→16:49)
[2019-12-12] MEDS: Z GUARD REMEDY 2 OZ OINT TP PRN (08:23)
[2019-12-12] MEDS: PANTOPRAZOLE 40 MG TABLET.DR PO SCH (08:23)
--- NOTE | 2019-12-12 09:30 | NUR ---
ICU/RN SEDATION VACATION PROVIDED.PT IS OPEN HIS EYES .FOLLOWS COMMAND.NOT MOVING HIS EXTREMITIES.TACHYPNEIC.PLACED BACK ON PROPOFOL. DUE MEDS ARE GIVEN ORDERED.
--- NOTE | 2019-12-12 10:30 | NUR ---
ICU/RN CT OF THE HAD DONE ORDERED. REPOSITION FOR COMFORT.
[2019-12-12 10:44] LABS: BASOPHILS # (AUTO) 0.1 /CMM (0.0-0.2); BASOPHILS % (AUTO) 0.6 % (0.0-2.0); EOSINOPHILS % (AUTO) 0.2 % (0.0-6.0); HEMATOCRIT 36 % (39-51); HEMOGLOBIN 12.3 g/dL (13.5-17.5); LYMPHOCYTES # (AUTO) 0.3 /CMM (0.8-4.8); LYMPHOCYTES % (AUTO) 3.1 % (20.0-44.0); MEAN CORPUSCULAR HGB CONC 34 g/dl (31.0-36.0); MEAN CORPUSCULAR VOLUME 125 fL (80-96); MONOCYTES # (AUTO) 0.6 /CMM (0.1-1.30); MONOCYTES % (AUTO) 5.6 % (2.0-12.0); NEUTROPHILS # (AUTO) 9.1 /CMM (1.8-8.9); NEUTROPHILS % (AUTO) 90.5 % (43.0-81.0); PLATELET COUNT (AUTO) 159 /CMM (150-450); RED BLOOD CELL COUNT(AUTO) 2.91 MIL/uL (4.5-6.0); WHITE BLOOD COUNT (AUTO) 10.1 K/uL (4.3-11.0)
[2019-12-12 11:37] LABS: CREATININE 5.4 mg/dL (0.6-1.3); MAGNESIUM 2.3 mg/dL (1.8-2.4); PHOSPHORUS 6.3 mg/dL (2.5-4.9); POTASSIUM 3.9 mmol/L (3.5-5.1)
[2019-12-12 11:41] LABS: CALCIUM, SERUM 5.8 mg/dL (8.5-10.1)
[2019-12-12] MEDS: LEVETIRACETAM (500MG) 500 MG in IV NS 0.9% 100 ML IV SCH (12:28)
--- NOTE | 2019-12-12 13:09 | NUR ---
Senior Financial Analyst consult as patient is homeless. Patient is currently remain on ventilator and is sedated. SW attempted to obtain information regarding this patient. [facility] Per Laurence in Admissions, patient has never been there before. Laurence could not recognize the name and per Laurence patient does not been a resident there ever. SW to remain available for all needs regarding this patient.
[2019-12-12] MEDS: AMANTADINE HCL 100 MG CAPSULE PO SCH (16:29)
--- NOTE | 2019-12-12 18:00 | NUR ---
icu/rn pm care provided.due meds are given as ordered.reposition for comfort.
--- NOTE | 2019-12-12 19:20 | NUR ---
RN OPENING NOTE: Received patient in bed and sedated. On mechanical ventilation via ETT setting as ordered with saturation noted @ 94%. No SOB and not in respiratory distress. Tele monitor showing sinus rhythm in the 80s. IV site clean, dry, patent and intact. On Levophed @ 0.02mcg/kg/min, Propofol @ 45mcg/kg/min and NS @ 100mls/hr via right internal jugular PICC line. Mcmahon catheter with no urine output per AM nurse is aware. Safety measure is maintained Bed locked, low and at semi-saucedo's position. Side rails up x3. Will continue to monitor. Addendum: 12/12/19 at 2056 by PAT FUNES RN with right nares NGT patent and placement was checked with 0 residual
[2019-12-12] MEDS: AZITHROMYCIN 500 MG in IV D5W 250 ML IV SCH (20:38)
[2019-12-13] VITALS (49 sets, daily range): BP systolic 88–132; BP diastolic 51–86
[2019-12-13] MEDS: PIPERACILLIN /TAZOBACTAM 3.375 G in IV D5W 50 ML IV SCH ×2 (00:16→05:28)
[2019-12-13] MEDS: LEVETIRACETAM (500MG) 500 MG in IV NS 0.9% 100 ML IV SCH ×2 (00:16→11:09)
[2019-12-13] MEDS: PROPOFOL 100 ML IV PRN ×8 (00:40→22:25)
[2019-12-13] MEDS: HYDROCORTISONE SOD SUCCINATE 100 MG/2 ML VIAL IV SCH ×3 (00:50→16:23)
--- NOTE | 2019-12-13 03:50 | NUR ---
RN NOTES REPORTED TO ALIGNER BRIAN HAIRSTON BAKERY PRODUCTS CHECKER ABOUT THE VERY LOW OUT PUT OF THE PT OF 30ML, NEPHRO IS AWARE THAT PT IS OUTPUT IS LOW FOR THE PAST DAYS, WITH NO NEW ORDER
[2019-12-13] MEDS: IV NS 0.9% 1,000 ML IV PRN ×2 (04:01→14:19)
[2019-12-13 04:42] LABS: BASOPHILS % (AUTO) 0.2 % (0.0-2.0); EOSINOPHILS % (AUTO) 0.1 % (0.0-6.0); HEMATOCRIT 39 % (39-51); LYMPHOCYTES # (AUTO) 0.3 /CMM (0.8-4.8); LYMPHOCYTES % (AUTO) 2.1 % (20.0-44.0); MEAN CORPUSCULAR HGB CONC 33 g/dl (31.0-36.0); MEAN CORPUSCULAR VOLUME 126 fL (80-96); MONOCYTES # (AUTO) 0.9 /CMM (0.1-1.30); NEUTROPHILS # (AUTO) 12.2 /CMM (1.8-8.9); NEUTROPHILS % (AUTO) 90.6 % (43.0-81.0); PLATELET COUNT (AUTO) 213 /CMM (150-450); RED BLOOD CELL COUNT(AUTO) 3.12 MIL/uL (4.5-6.0); WHITE BLOOD COUNT (AUTO) 13.5 K/uL (4.3-11.0)
[2019-12-13 05:12] LABS: ALBUMIN 1.9 g/dL (3.4-5.0); BILIRUBIN,TOTAL 2.4 mg/dL (0.2-1.0); CREATININE 5.9 mg/dL (0.6-1.3); POTASSIUM 4.4 mmol/L (3.5-5.1); TOTAL PROTEIN, SERUM 6.2 g/dL (6.4-8.2)
[2019-12-13 06:46] LABS: LYMPHOCYTES % (MANUAL) 4 % (16-48); MONOCYTES % (MANUAL) 8 % (0-11.0); NEUTROPHILS % (MANUAL) 88 (42-76)
--- NOTE | 2019-12-13 06:51 | NUR ---
RN CLOSING NOTES PT ON BED STILL SEDATED ON ETT/VENT SETTING PER MD, NO SIGN AND SYMPTOMS OF RESPIRATORY DISTRESS SPO2 96% TELE MONITOR READS SINUS RHYTHM 80, NO SIGNIFICANT CHANGES ON CONDITION NOTED STILL WITH DIPRIVAN @ 45MCG/KG/MIN, AND NS 100ML/HR INFUSING WELL VIA RIGHT INTRAJUGULAR VEIN, ALL NEEDS ATTENDED, SAFETY MEASURE MAINTAINED WITH PLAN OF VENT WEANING ONCE STABLE, WILL ENDORSE TO AM SHIFT NURSE
--- NOTE | 2019-12-13 07:15 | NUR ---
RN INITIAL NOTES RECEIVED PT INTUBATED, ON VENT. NO RESPIRATORY DISTRESS NOTED. HOB ELEVATED. NO SIGNS OF PAIN NOTED. NGT IN PLACE, CLAMPED. RIJ TLC IN PLACE. IVF INFUSING. ON DIPRIVAN AT 45MCG/KG/MIN. WILL TITRATE ACCORDINGLY. BLE ELEVATED. WILL CLOSELY MONITOR
[2019-12-13] MEDS: PANTOPRAZOLE 40 MG TABLET.DR PO SCH (08:17)
[2019-12-13] MEDS: AMANTADINE HCL 100 MG CAPSULE PO SCH ×2 (08:17→16:23)
[2019-12-13] MEDS: CLOTRIMAZOLE 1% 15 GM TUBE TP SCH ×2 (08:17→16:24)
--- NOTE | 2019-12-13 08:30 | NUR ---
RT RECEIVED PT ORALLY INTUBATED ETT 8.5 MARKED @ 25CM LIP LINE WITH NOTED SETTINGS. ELECTRICAL ENGINEERING TECHNOLOGIST DONE AND TUBE IS SECURE W/ ANCHOR FAST. VENT ALARMS CHECKED AND AUDIBLE. VENT PLUGGED IN RED OUTLET. OLGA B/S, SX W/ MOD THK BENDER SECRETIONS. AMBU BAG NOTED HOB. NO SOB OR RESP DISTRESS NOTED AT THIS TIME. WILL CONTINUE TO MONITOR T/O SHIFT.
--- NOTE | 2019-12-13 09:00 | NUR ---
RN NOTES [address] TSAI. AWARE OF CURRENT STATUS, LAB VALUES AND IMAGING STUDIES. NO SEDATION VACATION TODAY PER MD. WILL CLOSELY MONITOR [address] MONTEMAYOR. AWARE OF LAB VALUES AND IMAGING STUDY. DISCUSSED HEAD CT RESULT. DR WELLER IN THE CASE. WILL CALL DR REAL (NEUROSURGERY) FOR CONSULT [phone] REAL. MADE AWARE OF PT'S CONDITION AND LATEST CT HEAD RESULT. PER MD, NO SURGICAL INTERVENTION NEEDED AT THIS MOMENT. DR MONTEMAYOR AND DR TSAI MADE AWARE. WILL CLOSELY MONITOR
[2019-12-13] MEDS: MODAFINIL 100 MG TABLET PO SCH (09:38)
[2019-12-13] MEDS: ZOSYN IVPB 2.25 G in IV D5W 50ml IV SCH ×2 (14:19→17:02)
--- NOTE | 2019-12-13 18:28 | NUR ---
RN CLOSING NOTES NO SIGNIFICANT CHANGE NOTED. PT REMAINS INTUBATED, ON VENT. KEPT HOB ELEVATED. REMAINS SEDATED. KEPT COMFORTABLE. TX PROVIDED ORDERED. BLE ELEVATED. WILL ENDORSE FOR CONTINUITY OF CARE.
--- NOTE | 2019-12-13 19:54 | NUR ---
RECEIVED PT ORALLY INTUBATED WITH ETT 8.0 SECURED @ 25CM LIP LINE WITH NOTED SETTINGS. PT IS SEDATED. MOTION PICTURE SET UP WORKER DONE AND TUBE IS SECURE W/ ANCHOR FAST. VENT ALARMS CHECKED AND AUDIBLE. VENT PLUGGED IN RED OUTLET. BILATERAL B/S NOTED , SX DONE. AMBU BAG @ HOB. NO SOB OR RESP DISTRESS NOTED AT THIS TIME. WILL CONTINUE TO MONITOR T/O SHIFT.
--- NOTE | 2019-12-13 20:08 | NUR ---
CHIP MIXING MACHINE OPERATOR. INITIAL ASSESSMENT. RECEIVED THE PT REST ON THE BED. ORALLY INTUBATED. SEDATED WITH DIPRIVAN 45MCG/KG/MIN, ETT #8,AC 16,LIP 23CM,TV 500,FIO2 50%, PEEP 5. SAT 97%. NO ACUTE DISTRESS NOTED. UNDERGROUND DRILL OPERATOR SHOWING NSR. IV RT IJ TRIPLE LUMEN RT FEMORAL HD CATH. RT HAND LT CALDERÓN 20G. IV, SALINE LOCK. DIPRIVAN 45MCG/KG/MIN, NS 100ML/H. FC PATENT. OLGA SOFT WRIST HOB ELEVATED, WILL CONTINUE TO MONITOR VITALSRESTRAINT CHECKED AND RELEASED. NO INJURY OR REDNESS NOTED.
--- NOTE | 2019-12-13 20:57 | NUR ---
SCHOOL SUPERVISOR. NEUROLOGICAL ASSESSMENT. EXTREMITY UPPER AND LOWER IS UNABLE. PT IS SEDATED WITH DIPRIVAN.
[2019-12-13] MEDS: AZITHROMYCIN 500 MG in IV D5W 250 ML IV SCH (22:24)
--- NOTE | 2019-12-13 23:00 | NUR ---
silviculture forester. abdomen distended. will continue to monitor.
[2019-12-14] VITALS (24 sets, daily range): BP systolic 92–138; BP diastolic 49–85
[2019-12-14] MEDS: PROPOFOL 100 ML IV PRN ×5 (01:16→17:19)
[2019-12-14] MEDS: HYDROCORTISONE SOD SUCCINATE 100 MG/2 ML VIAL IV SCH ×3 (01:16→18:35)
[2019-12-14] MEDS: ZOSYN IVPB 2.25 G in IV D5W 50ml IV SCH ×4 (01:16→18:35)
[2019-12-14] MEDS: LEVETIRACETAM (500MG) 500 MG in IV NS 0.9% 100 ML IV SCH ×2 (01:16→12:17)
--- NOTE | 2019-12-14 01:30 | NUR ---
agriculture worker. no changes. will continue to monitor
--- NOTE | 2019-12-14 04:00 | NUR ---
high school agriculture teacher. am care, given. linen changed, remaining same vent settings tolerated well, ivf ns 100ml/h, diprivan 45mcg/kg/min, hob elevated, fc patent, tabatha soft wrist restraint checked and released, no injury or redness noted, will continue to monitor vcitals
[2019-12-14 04:38] LABS: BASOPHILS % (AUTO) 0.3 % (0.0-2.0); HEMATOCRIT 38 % (39-51); HEMOGLOBIN 12.7 g/dL (13.5-17.5); LYMPHOCYTES # (AUTO) 0.4 /CMM (0.8-4.8); LYMPHOCYTES % (AUTO) 5.3 % (20.0-44.0); MEAN CORPUSCULAR HGB CONC 34 g/dl (31.0-36.0); MEAN CORPUSCULAR VOLUME 126 fL (80-96); MONOCYTES # (AUTO) 0.6 /CMM (0.1-1.30); MONOCYTES % (AUTO) 8.4 % (2.0-12.0); NEUTROPHILS # (AUTO) 6.2 /CMM (1.8-8.9); PLATELET COUNT (AUTO) 184 /CMM (150-450); RED BLOOD CELL COUNT(AUTO) 3.01 MIL/uL (4.5-6.0); WHITE BLOOD COUNT (AUTO) 7.3 K/uL (4.3-11.0)
[2019-12-14 04:49] LABS: CREATININE 6.6 mg/dL (0.6-1.3); POTASSIUM 4.3 mmol/L (3.5-5.1)
[2019-12-14 05:25] LABS: LYMPHOCYTES % (MANUAL) 3 % (16-48); MONOCYTES % (MANUAL) 5 % (0-11.0); NEUTROPHILS % (MANUAL) 92 (42-76)
--- NOTE | 2019-12-14 06:46 | NUR ---
cardiothoracic icu rn. during shift no changes. ivf ns 100ml/h, diprivan 45mcg/kg/min. turn and reposition q2h, will continue to monitor vitals.
[2019-12-14] MEDS: IV NS 0.9% 1,000 ML IV PRN ×2 (07:00→14:48)
[2019-12-14] MEDS: AMANTADINE HCL 100 MG CAPSULE PO SCH ×2 (08:49→18:35)
[2019-12-14] MEDS: CLOTRIMAZOLE 1% 15 GM TUBE TP SCH ×2 (08:50→17:20)
[2019-12-14] MEDS: PANTOPRAZOLE 40 MG TABLET.DR PO SCH (08:50)
[2019-12-14] MEDS: MODAFINIL 100 MG TABLET PO SCH (08:50)
--- NOTE | 2019-12-14 18:13 | NUR ---
PT'S BROTHER AMILCAR NAVARRETE [phone] CALLED TO GET UPDATES. AMILCAR STATES HE IS PATIENTS NEXT OF KIN AND WILL BE AVAILABLE ANYTIME FOR CONSENTS ANYTHING ELSE NEEDED FOR PATIENT. LAUREL NAME AND PHONE NUMBER WRITTEN ON FACE SHEET, ADMISSIONS TO BE UPDATED IN THE MORNING.
--- NOTE | 2019-12-14 19:07 | NUR ---
END OF SHIFT NOTE: PT HAD 1ST DIALYSIS TODAY, ENDING AT 1845, 2500 ML OUT DURING DIALYSIS. SEDATION WAS TURNED OFF FROM 1015 TO 1430. AT 1430 PT'S RESPIRATIONS WERE ELEVATED AT 28-30. PER DR[address] TSAI PROPOFOL WAS TURNED BACK ON AT LOW A RATE PATIENT CAN TOLERATE. PT CHECKED ON HOURLY AND PRN BY NURSING STAFF.
--- NOTE | 2019-12-14 20:00 | NUR ---
Received patient intubated to mechanical vent on full vent support with with prescribed settings. Tolerating well.On low dose of Diprivan gtt as sedation.Open eyes when turned and repositioned but not interactive.No respiratory distress noted.VSS.Normotensive.RIJ TLC in place with CVP reading 16.R NGT clamped and placement verified by aspiration and auscultation.FC to gravity drainage.Pt oliguric.Turned and repositioned.Continue monitoring.
[2019-12-14] MEDS: AZITHROMYCIN 500 MG in IV D5W 250 ML IV SCH (21:01)
[2019-12-15] VITALS (48 sets, daily range): BP systolic 120–166; BP diastolic 70–95
--- NOTE | 2019-12-15 | NUR ---
Patient resting in no acute distress.VSS.Turned and repositioned.
[2019-12-15] MEDS: ZOSYN IVPB 2.25 G in IV D5W 50ml IV SCH ×5 (00:30→23:54)
[2019-12-15] MEDS: HYDROCORTISONE SOD SUCCINATE 100 MG/2 ML VIAL IV SCH ×4 (00:30→23:54)
[2019-12-15] MEDS: PROPOFOL 100 ML IV PRN ×4 (03:22→21:52)
[2019-12-15] MEDS: IV NS 0.9% 250 ML IV PRN ×2 (03:51→15:56)
--- NOTE | 2019-12-15 06:00 | NUR ---
Patient resting no significant changes noted during the shift.Due medications administered. Hygienic measures done.No distress noted.Turned and repositioned.VSS.SR.Will endorse today shift for continuity of care.
--- NOTE | 2019-12-15 07:10 | NUR ---
ICU/RN PT IS INTUBATED ON THE VENT ,AC MODE.FIO2-50%.ON 10 MCG/KG/MIN PROPOFOL DRIP.HR-103,RR-27,BP 159/59.OPEN EYES NO FOLLOW COMMAND .RIGHT IJ TLC. RIGHT NG TUBE CLAMPED.F/C IN PLACE.NO URINE OUTPUT.ANURIC. NEW HD.STARTED ON 12/14/19. RIGHT FEMORAL HD CATH .GENERALIZED EDEMA PRESENT.BILATERAL SOFT WRIST RESTRAINS ON.SUCTION PROVIDED.REPOSITION FOR COMFORT.
--- NOTE | 2019-12-15 07:40 | NUR ---
ICU/RN SEDATION VACATION PROVIDED.PT IS OPEN HIS EYES ,NOT FOLLOWS COMMAND ,NOT MOVING EXTREMITIES.TACHYPNEIC AND TACHYCARDIC,BP INCREASED. DIPRIVAN INCREASED TO 30 MCG/KG/MIN .CONTINUE MONITORING.
[2019-12-15] MEDS: PANTOPRAZOLE 40 MG TABLET.DR PO SCH (08:07)
[2019-12-15] MEDS: AMANTADINE HCL 100 MG CAPSULE PO SCH ×2 (08:09→17:10)
[2019-12-15] MEDS: MODAFINIL 100 MG TABLET PO SCH (08:09)
[2019-12-15] MEDS: CLOTRIMAZOLE 1% 15 GM TUBE TP SCH ×2 (08:10→17:11)
[2019-12-15 09:00] LABS: BASOPHILS # (AUTO) 0.1 /CMM (0.0-0.2); BASOPHILS % (AUTO) 0.9 % (0.0-2.0); EOSINOPHILS % (AUTO) 0.3 % (0.0-6.0); HEMATOCRIT 37 % (39-51); HEMOGLOBIN 12.4 g/dL (13.5-17.5); LYMPHOCYTES # (AUTO) 0.2 /CMM (0.8-4.8); LYMPHOCYTES % (AUTO) 2.4 % (20.0-44.0); MEAN CORPUSCULAR HGB CONC 34 g/dl (31.0-36.0); MEAN CORPUSCULAR VOLUME 126 fL (80-96); MONOCYTES # (AUTO) 0.7 /CMM (0.1-1.30); MONOCYTES % (AUTO) 7.9 % (2.0-12.0); NEUTROPHILS # (AUTO) 8.3 /CMM (1.8-8.9); NEUTROPHILS % (AUTO) 88.5 % (43.0-81.0); PLATELET COUNT (AUTO) 193 /CMM (150-450); WHITE BLOOD COUNT (AUTO) 9.4 K/uL (4.3-11.0)
--- NOTE | 2019-12-15 09:00 | NUR ---
ICU/RN DUE MEDS ARE GIVEN ORDERED.NEW LABS ORDERED.
[2019-12-15 09:09] LABS: CALCIUM, SERUM 7.1 mg/dL (8.5-10.1); CREATININE 6.6 mg/dL (0.6-1.3); POTASSIUM 4.3 mmol/L (3.5-5.1)
[2019-12-15 10:03] LABS: LYMPHOCYTES % (MANUAL) 3 % (16-48); MONOCYTES % (MANUAL) 7 % (0-11.0); NEUTROPHILS % (MANUAL) 90 (42-76)
[2019-12-15] MEDS: LEVETIRACETAM (500MG) 500 MG in IV NS 0.9% 100 ML IV SCH ×4 (11:15→23:53)
--- NOTE | 2019-12-15 17:00 | NUR ---
ICU/RN PM CARE PROVIDED.WOUND DRESSING DONE ORDERED.LOWER BACK WOUND HAS SOME BLEEDING.DUE MEDS ARE GIVEN ORDERED. HD IS OVER 1 L IS OUTPUT.PT TOLERATED WELL .BP STABLE ,AFEBRILE.SUCTION PROVIDED.REPOSITION FOR COMFORT.
--- NOTE | 2019-12-15 19:45 | NUR ---
ICU/CLOTHING PATTERNMAKER RECEIVED REPORT FROM DAY NURSE. SEE FLOWSHEET FOR ASSESSMENT, ALONG WITH SKIN ISSUES WHICH ARE ADDRESSED AND THE INTERVENTIONS TO EACH. PT IS SEDATED. PT IS ORALLY INTUBATED TOLERATING CURRENT VENT SETTINGS WELL WITH SATURATION AT 92-94%. PT WAS TURN AND REPOSITION FOR COMFORT AND CARE. WILL CONTINUE TO MONITOR THIS PT, NO ACUTE DISTRESS SEEN. PT ALSO HAS CVP MONITORING WITH READINGS EVERY 4 HOURS.
[2019-12-15] MEDS: AZITHROMYCIN 500 MG in IV D5W 250 ML IV SCH (20:47)
--- NOTE | 2019-12-15 22:00 | NUR ---
ICU/SCREEN PRINTING SUPERVISOR PT WAS GIVEN ORAL CARE AT THIS TIME , ALONG WITH PM CARE. PT TOLERATED THIS WELL. PT REMAINS ON CURRENT VENT SETTINGS WITH SATURATION AT 94-96%. WILL CONTINUE TO MONITOR THIS PT AND HIS SATURATION. PT WAS TURNED AND REPOSITIONED FOR COMFORT AND CARE, NO ACUTE DISTRESS SEEN AT THIS TIME.
[2019-12-16] VITALS (52 sets, daily range): BP systolic 121–154; BP diastolic 72–97
[2019-12-16] MEDS: PROPOFOL 100 ML IV PRN ×6 (01:24→22:05)
--- NOTE | 2019-12-16 04:45 | NUR ---
ICU/BARREL ENDSHAKER ADJUSTER AM LABS WERE DONE.AWAIT FOR ANY ABNORMAL RESULTS.
[2019-12-16 05:02] LABS: BASOPHILS % (AUTO) 0.3 % (0.0-2.0); EOSINOPHILS % (AUTO) 0.2 % (0.0-6.0); HEMATOCRIT 36 % (39-51); HEMOGLOBIN 12.3 g/dL (13.5-17.5); LYMPHOCYTES # (AUTO) 0.2 /CMM (0.8-4.8); LYMPHOCYTES % (AUTO) 1.8 % (20.0-44.0); MEAN CORPUSCULAR HGB CONC 34 g/dl (31.0-36.0); MEAN CORPUSCULAR VOLUME 123 fL (80-96); MONOCYTES # (AUTO) 0.9 /CMM (0.1-1.30); MONOCYTES % (AUTO) 7.2 % (2.0-12.0); NEUTROPHILS # (AUTO) 11.3 /CMM (1.8-8.9); NEUTROPHILS % (AUTO) 90.5 % (43.0-81.0); PLATELET COUNT (AUTO) 219 /CMM (150-450); RED BLOOD CELL COUNT(AUTO) 2.94 MIL/uL (4.5-6.0); WHITE BLOOD COUNT (AUTO) 12.4 K/uL (4.3-11.0)
[2019-12-16] MEDS: ZOSYN IVPB 2.25 G in IV D5W 50ml IV SCH ×3 (05:08→17:15)
[2019-12-16 05:25] LABS: EOSINOPHILS % (MANUAL) 1 % (0-4); LYMPHOCYTES % (MANUAL) 3 % (16-48); MONOCYTES % (MANUAL) 10 % (0-11.0); NEUTROPHILS % (MANUAL) 86 (42-76)
[2019-12-16] MEDS: IV NS 0.9% 250 ML IV PRN (07:06)
--- NOTE | 2019-12-16 07:35 | NUR ---
ICU/RN PT IS INTUBATED ON THE VENT AC MODE.FIO2-50%.SAT O2-95%.V/S STABLE.AFEBRILE.NO PAIN REPORTED AT THIS TIME.PT IS SEDATED ON DIPRIVAN.NG TUBE CLAMPED.NPO.F/C IN PLACE.NO URINE OUTPUT.ACUTE RENAL FAILURE.ANURIA.HD STARTED 2 DAYS AGO.RIGHT FEMORAL HD CATH .RIGHT IJ TLC.LOWER BACK WOUND COVERED WITH DRESSING.GENERALIZED EDEMA PRESENT .SUCTION PROVIDED.REPOSITION FOR COMFORT.LABS REVIEW.
[2019-12-16] MEDS: HYDROCORTISONE SOD SUCCINATE 100 MG/2 ML VIAL IV SCH ×2 (08:16→16:47)
[2019-12-16] MEDS: MODAFINIL 100 MG TABLET PO SCH (08:16)
[2019-12-16] MEDS: PANTOPRAZOLE 40 MG TABLET.DR PO SCH (08:16)
[2019-12-16] MEDS: AMANTADINE HCL 100 MG CAPSULE PO SCH ×2 (08:16→16:47)
[2019-12-16] MEDS: CLOTRIMAZOLE 1% 15 GM TUBE TP SCH ×2 (08:17→16:47)
[2019-12-16] MEDS: LEVETIRACETAM (500MG) 500 MG in IV NS 0.9% 100 ML IV SCH (12:59)
[2019-12-16] MEDS: AZITHROMYCIN 500 MG in IV D5W 250 ML IV SCH (20:55)
[2019-12-17] VITALS (26 sets, daily range): BP systolic 131–175; BP diastolic 85–117
[2019-12-17] MEDS: ZOSYN IVPB 2.25 G in IV D5W 50ml IV SCH ×4 (00:39→17:24)
[2019-12-17] MEDS: LEVETIRACETAM (500MG) 500 MG in IV NS 0.9% 100 ML IV SCH ×3 (00:56→23:59)
[2019-12-17] MEDS: HYDROCORTISONE SOD SUCCINATE 100 MG/2 ML VIAL IV SCH ×3 (01:42→17:24)
[2019-12-17] MEDS: PROPOFOL 100 ML IV PRN ×5 (01:59→23:04)
[2019-12-17] MEDS: IV NS 0.9% 250 ML IV PRN (03:16)
[2019-12-17 04:48] LABS: BASOPHILS % (AUTO) 0.2 % (0.0-2.0); EOSINOPHILS % (AUTO) 0.3 % (0.0-6.0); HEMATOCRIT 35 % (39-51); HEMOGLOBIN 11.9 g/dL (13.5-17.5); LYMPHOCYTES # (AUTO) 0.3 /CMM (0.8-4.8); LYMPHOCYTES % (AUTO) 2.2 % (20.0-44.0); MEAN CORPUSCULAR HGB CONC 34 g/dl (31.0-36.0); MEAN CORPUSCULAR VOLUME 125 fL (80-96); MONOCYTES # (AUTO) 1.3 /CMM (0.1-1.30); MONOCYTES % (AUTO) 9.1 % (2.0-12.0); NEUTROPHILS # (AUTO) 12.3 /CMM (1.8-8.9); NEUTROPHILS % (AUTO) 88.2 % (43.0-81.0); PLATELET COUNT (AUTO) 221 /CMM (150-450); RED BLOOD CELL COUNT(AUTO) 2.85 MIL/uL (4.5-6.0)
[2019-12-17 05:02] LABS: CALCIUM, SERUM 7.3 mg/dL (8.5-10.1); CREATININE 5.7 mg/dL (0.6-1.3); POTASSIUM 3.9 mmol/L (3.5-5.1)
[2019-12-17 06:51] LABS: BAND % (MANUAL) 2 % (0.0-5.0); LYMPHOCYTES % (MANUAL) 1 % (16-48); METAMYELOCYTES % 3 % (0-0); MONOCYTES % (MANUAL) 8 % (0-11.0); MYELOCYTES % 2 % (0-0); NEUTROPHILS % (MANUAL) 84 (42-76)
--- NOTE | 2019-12-17 08:03 | NUR ---
RN OPENING NOTES RECEIVED PATIENT RESTING IN BED COMFORTABLY, NO S/SX OF DISTRESS AT THIS ANDI. PT IS ON MECHANICAL VENT, AC16, TV 500, FIO2 50% PEEP %, TOLERATING WELL. CVP MONITORING ACTIVE, Q4H. TELE MONITOR SHOWING SR. NG TUBE ON R NARE PATENT AND INTACT, WILL START FEEDING TODAY. REDNESS ON PERINEAL AND ABDN FOLD PRESENT, WILL ADDRESS PER WOUND CARE PLAN. IV SITE ON RIJ AND R FEMORAL HD CATH PICC TAIL ARE PATENT AND INTACT. PT SEDATED ON 30 MCG DIPRIVAN. SAFETY MEASURES HAVE BEEN IMPLEMENTED, CALL LIGHT IS WITHIN REACH, BED IS IN LOWEST AND LOCKED POSITION, SIDE RAILS UP X2, WILL CONTINUE TO MONITOR FOR ANY CHANGES.
[2019-12-17] MEDS: PANTOPRAZOLE 40 MG TABLET.DR PO SCH (08:12)
--- NOTE | 2019-12-17 08:30 | NUR ---
RN NOTES SPOKE WITH DR MONTEMAYOR REGARDING PT NUTRITIONAL STATUS, RECEIVED ORDER FOR NEPRO TUBE FEED STARTING AT 20 CC AND DIET CONSULT, WILL CONTINUE TO MONITOR
[2019-12-17] MEDS: AMANTADINE HCL 100 MG CAPSULE PO SCH ×2 (08:33→17:24)
[2019-12-17] MEDS: MODAFINIL 100 MG TABLET PO SCH (08:33)
[2019-12-17] MEDS: CLOTRIMAZOLE 1% 15 GM TUBE TP SCH ×2 (08:34→17:24)
--- NOTE | 2019-12-17 10:02 | NUR ---
SEDATION VACATION. pt was able to open his eyes but cannot follow, pt unable to follow commands and move extremities. pt became tachycardic at 101, tachypnic at 26, and bp increased. resumed infusion, will titrate until desired sedation levels
[2019-12-17] MEDS: METOPROLOL TARTRATE INJ 5 MG/5 ML AMPUL IVP PRN ×2 (10:33→18:30)
--- NOTE | 2019-12-17 12:31 | NUR ---
pt has no urine output, did bladder scan and showed residual of 37 ml of urine, will relay to Addendum: 12/17/19 at 1345 by REMINGTON YOUNG RN Relayed decreased urine output and high bp to Dr. Pinto, no new orders at this time, will continue to monitor for any changes.
[2019-12-17] MEDS: NEPRO 1,000 ML BOTTLE GT PRN (17:34)
--- NOTE | 2019-12-17 19:13 | NUR ---
RN CLOSING NOTES PATIENT IS RESTING IN BED COMFORTABLY AT THIS TIME, ALL NEEDS TENDED TOO, ALL MEDS GIVEN. PT IS STILL HYPERTENSIVE, MD'S HAVE BEEN MADE AWARE. PT ON DIPRIVAN DRIP AT 10MCG, TOLERATING WELL. ON MECH VENT, NO RESP DISTRESS NOTED. SAFETY MEASURES HAVE BEEN IMPLEMENTED, CALL LIGHT IS WITHIN REACH, BED IS IN LOWEST AND LOCKED POSITION, SIDE RAILS UP X2, PT HAS BEEN ENDORSED TO NIGHTSHIFT RN FOR YANETH.
--- NOTE | 2019-12-17 19:31 | NUR ---
RECEIVED PT ORALLY INTUBATED WITH ETT 8.0 SECURED @ 25CM LIP LINE WITH NOTED SETTINGS. HOME OFFICE CLAIM SPECIALIST DONE AND TUBE IS SECURE W/ ANCHOR FAST. VENT ALARMS CHECKED AND AUDIBLE. VENT PLUGGED IN RED OUTLET. BILATERAL B/S NOTED , SX DONE. AMBU BAG @ HOB. NO SOB OR RESP DISTRESS NOTED AT THIS TIME. WILL CONTINUE TO MONITOR T/O SHIFT.
[2019-12-17] MEDS: AZITHROMYCIN 500 MG in IV D5W 250 ML IV SCH (20:25)
[2019-12-18] VITALS (26 sets, daily range): BP systolic 133–172; BP diastolic 82–113
[2019-12-18] MEDS: ZOSYN IVPB 2.25 G in IV D5W 50ml IV SCH ×4 (00:31→17:45)
[2019-12-18] MEDS: HYDROCORTISONE SOD SUCCINATE 100 MG/2 ML VIAL IV SCH ×3 (00:31→17:44)
[2019-12-18 05:01] LABS: BASOPHILS # (AUTO) 0.1 /CMM (0.0-0.2); BASOPHILS % (AUTO) 0.9 % (0.0-2.0); EOSINOPHILS % (AUTO) 0.7 % (0.0-6.0); HEMATOCRIT 36 % (39-51); LYMPHOCYTES # (AUTO) 0.3 /CMM (0.8-4.8); MEAN CORPUSCULAR HGB CONC 33 g/dl (31.0-36.0); MEAN CORPUSCULAR VOLUME 126 fL (80-96); MONOCYTES # (AUTO) 1.1 /CMM (0.1-1.30); MONOCYTES % (AUTO) 6.9 % (2.0-12.0); NEUTROPHILS # (AUTO) 14.5 /CMM (1.8-8.9); NEUTROPHILS % (AUTO) 89.5 % (43.0-81.0); PLATELET COUNT (AUTO) 194 /CMM (150-450); RED BLOOD CELL COUNT(AUTO) 2.87 MIL/uL (4.5-6.0); WHITE BLOOD COUNT (AUTO) 16.2 K/uL (4.3-11.0)
[2019-12-18 05:35] LABS: CALCIUM, SERUM 7.6 mg/dL (8.5-10.1); CREATININE 6.4 mg/dL (0.6-1.3); MAGNESIUM 2.8 mg/dL (1.8-2.4); POTASSIUM 4.3 mmol/L (3.5-5.1)
[2019-12-18 05:53] LABS: PHOSPHORUS 9.1 mg/dL (2.5-4.9)
[2019-12-18] MEDS: PROPOFOL 100 ML IV PRN (05:54)
--- NOTE | 2019-12-18 07:40 | NUR ---
RT Pt received orally intubated on mechanical ventilation with noted settings. Vent alarms are set and audible with BVM by bedside. No SOB or respiratory distress noted at this time. Addendum: 12/18/19 at 1653 by JUANPABLO GALE RT Amended: Links added.
--- NOTE | 2019-12-18 08:00 | NUR ---
SOLAR SITE ASSESSMENT SPECIALIST RECEIVED PT IN BED SEDATED ON PROPOFOL INTUBATED VS STABLE SETTINGS NOTICED ALARMS CHECKED, IV ACCESS PATENT DOMINGUEZ PRENT, NG TUBE PATENT INFUSING FEEDING, TURN AND REPOSITION SAFETY MEASURES TAKEN WILL CONT TO MONITOR.
[2019-12-18] MEDS: MODAFINIL 100 MG TABLET PO SCH (08:03)
[2019-12-18 08:06] LABS: ABG BASE EXCESS -9.2 mmol/L; ABG OXYGEN SATURATION 96.3 % (92.0-98.5); ABG PCO2 45.1 mmHg (35.0-45.0); ABG PH 7.223 (7.350-7.450); ABG PO2 93.2 mmHg (75.0-100.0); AaDO2 212.6 mmHg; COHb 0.7 % (0.5-1.5); MetHb 0.4 % (0.0-1.5); O2Hb 95.2 % (94.0-97.0); PEEP,BG 5 cm H2O; SITE, ABG Right Radial; VT, ABG 500 mL
[2019-12-18] MEDS: CLOTRIMAZOLE 1% 15 GM TUBE TP SCH ×2 (08:11→17:46)
[2019-12-18] MEDS: AMANTADINE HCL 100 MG CAPSULE PO SCH ×2 (08:11→17:45)
[2019-12-18] MEDS: PANTOPRAZOLE 40 MG TABLET.DR PO SCH (08:11)
--- NOTE | 2019-12-18 09:00 | NUR ---
CHANGE OF ADDRESS CLERK PT OFF OF DIPRIVAN, OPENES EYES DOES NOT FOLLOW
[2019-12-18] MEDS: LEVETIRACETAM SOL (5 ML) 100 MG/ML UDC GT SCH ×2 (09:18→20:29)
[2019-12-18 11:54] LABS: LYMPHOCYTES % (MANUAL) 8 % (16-48); MONOCYTES % (MANUAL) 12 % (0-11.0); NEUTROPHILS % (MANUAL) 80 (42-76)
[2019-12-18] MEDS: SEVELAMER CARBONATE 800 MG POWD.PACK GT SCH ×2 (12:07→17:45)
[2019-12-18] MEDS: LORAZEPAM INJ 2 MG/ML VIAL IV PRN (17:44)
--- NOTE | 2019-12-18 19:10 | NUR ---
SENIOR QUANTITY SURVEYOR REPORT GIVEN TO KASEY TAPIA FOR CONT OF CARE. NO DISTRESS NOTED DURING SHIFT
[2019-12-18] MEDS: METOPROLOL TARTRATE INJ 5 MG/5 ML AMPUL IVP PRN (22:28)
[2019-12-19] VITALS (24 sets, daily range): BP systolic 117–156; BP diastolic 74–95
[2019-12-19] MEDS: ZOSYN IVPB 2.25 G in IV D5W 50ml IV SCH ×4 (00:16→17:13)
[2019-12-19] MEDS: IV NS 0.9% 250 ML IV PRN (00:17)
[2019-12-19] MEDS: HYDROCORTISONE SOD SUCCINATE 100 MG/2 ML VIAL IV SCH ×3 (00:18→16:13)
[2019-12-19 04:04] LABS: BASOPHILS # (AUTO) 0.1 /CMM (0.0-0.2); BASOPHILS % (AUTO) 0.4 % (0.0-2.0); EOSINOPHILS % (AUTO) 0.2 % (0.0-6.0); HEMATOCRIT 34 % (39-51); HEMOGLOBIN 11.8 g/dL (13.5-17.5); LYMPHOCYTES # (AUTO) 0.4 /CMM (0.8-4.8); MEAN CORPUSCULAR HGB CONC 34 g/dl (31.0-36.0); MEAN CORPUSCULAR VOLUME 122 fL (80-96); MONOCYTES # (AUTO) 1.2 /CMM (0.1-1.30); MONOCYTES % (AUTO) 6.6 % (2.0-12.0); NEUTROPHILS # (AUTO) 16.2 /CMM (1.8-8.9); NEUTROPHILS % (AUTO) 90.8 % (43.0-81.0); PLATELET COUNT (AUTO) 164 /CMM (150-450); RED BLOOD CELL COUNT(AUTO) 2.82 MIL/uL (4.5-6.0); WHITE BLOOD COUNT (AUTO) 17.9 K/uL (4.3-11.0)
[2019-12-19 04:16] LABS: CALCIUM, SERUM 8.3 mg/dL (8.5-10.1); CREATININE 5.7 mg/dL (0.6-1.3); MAGNESIUM 2.7 mg/dL (1.8-2.4); PHOSPHORUS 7.8 mg/dL (2.5-4.9)
[2019-12-19 05:11] LABS: BAND % (MANUAL) 2 % (0.0-5.0); LYMPHOCYTES % (MANUAL) 3 % (16-48); METAMYELOCYTES % 2 % (0-0); MONOCYTES % (MANUAL) 2 % (0-11.0); MYELOCYTES % 2 % (0-0); NEUTROPHILS % (MANUAL) 89 (42-76)
--- NOTE | 2019-12-19 07:15 | NUR ---
RN INITIAL NOTES RECEIVED PT INTUBATED, ON VENT. NO RESPIRATORY DISTRESS NOTED. HOB ELEVATED. NO SIGNS OF PAIN NOTED. RIGHT NARE NGT IN PLACE. TOLERATING TUBE FEEDING WELL. RIGHT IJ AND RIGHT FEMORAL HD CATH IN PLACE. DOMINGUEZ IN PLACE. BLE ELEVATED. WILL CLOSELY MONITOR
[2019-12-19] MEDS: LEVETIRACETAM SOL (5 ML) 100 MG/ML UDC GT SCH ×2 (08:24→21:04)
[2019-12-19] MEDS: MODAFINIL 100 MG TABLET PO SCH (08:24)
[2019-12-19] MEDS: PANTOPRAZOLE 40 MG TABLET.DR PO SCH (08:24)
[2019-12-19] MEDS: AMANTADINE HCL 100 MG CAPSULE PO SCH ×2 (08:24→16:13)
[2019-12-19] MEDS: CLOTRIMAZOLE 1% 15 GM TUBE TP SCH ×2 (08:25→16:22)
[2019-12-19 08:35] LABS: ABG BASE EXCESS -5.6 mmol/L; ABG OXYGEN SATURATION 98.2 % (92.0-98.5); ABG PCO2 35.7 mmHg (35.0-45.0); ABG PH 7.347 (7.350-7.450); ABG PO2 129.9 mmHg (75.0-100.0); AaDO2 258.6 mmHg; COHb 0.9 % (0.5-1.5); MetHb 0.4 % (0.0-1.5); O2Hb 96.9 % (94.0-97.0); SITE, ABG Right Radial
[2019-12-19] MEDS: SEVELAMER CARBONATE 800 MG POWD.PACK GT SCH ×3 (10:06→18:00)
[2019-12-19] MEDS: NEPRO 1,000 ML BOTTLE GT PRN (13:19)
--- NOTE | 2019-12-19 13:37 | NUR ---
RN NOTES PT REMAINS INTUBATED, ON VENT. NO RESPIRATORY DISTRESS NOTED. NO SOB NOTED. HOB ELEVATED. NO SIGNS OF PAIN. BEDSIDE REPORT GIVEN TO REGINA MERINO AT BEDSIDE. TOOK OVER PT'S CARE
--- NOTE | 2019-12-19 19:00 | NUR ---
RECEIVED PATIENT ORALLY INTUBATED TO THE VENTILATOR ON AC MODE, NOT IN ANY DISTRESS,BREATHING REGULAR AND NON LABORED, +COUGH WHEN SUCTIONED VIA OET, SLIGHT GAG ,SLIGHT GRIMACE TO PAIN ,NO MOVEMENT NOTED ON ALL EXTREMITIES. ABDOMEN LARGE /ROUNDED. +GENERALIZED EDEMA. TRIPLE LUMEN CATHETER @ RIGHT IJ, DIALYSIS CATHETER VIA RIGHT FEMORAL . OGT WITH ON GOING TUBE FEEDING, MINIMAL RESIDUAL. PATIENT FOR TRACHEOSTOMY IN AM ,POSSIBLE PEG INSERTION., NPO POST MIDNIGHT.
[2019-12-20] VITALS (34 sets, daily range): BP systolic 105–182; BP diastolic 65–115
--- NOTE | 2019-12-20 | NUR ---
FEEDING OFF.NPO POST MIDNIGHT. NOTED PATIENT A LITTLE MORE RESPONSIVE, OPENS EYES TO PAIN, BUT NOT TRACKING, MOVES LIPS,+ gag,STILL NO MOVEMENT OBSERVED.
[2019-12-20] MEDS: ZOSYN IVPB 2.25 G in IV D5W 50ml IV SCH ×5 (00:06→23:50)
[2019-12-20] MEDS: IV NS 0.9% 250 ML IV PRN (01:24)
[2019-12-20] MEDS: HYDROCORTISONE SOD SUCCINATE 100 MG/2 ML VIAL IV SCH ×3 (01:26→16:59)
--- NOTE | 2019-12-20 02:00 | NUR ---
MORE RESPONSIVE,OPENS EYES, STRONGER COUGH,BUCKING THE VENTILATOR WITH PIP=50'S. AM BATH DONE.
[2019-12-20 03:56] LABS: BASOPHILS % (AUTO) 0.1 % (0.0-2.0); EOSINOPHILS % (AUTO) 0.3 % (0.0-6.0); HEMATOCRIT 32 % (39-51); HEMOGLOBIN 10.7 g/dL (13.5-17.5); LYMPHOCYTES # (AUTO) 0.5 /CMM (0.8-4.8); LYMPHOCYTES % (AUTO) 2.8 % (20.0-44.0); MEAN CORPUSCULAR HGB CONC 34 g/dl (31.0-36.0); MEAN CORPUSCULAR VOLUME 123 fL (80-96); MONOCYTES # (AUTO) 1.3 /CMM (0.1-1.30); MONOCYTES % (AUTO) 7.3 % (2.0-12.0); NEUTROPHILS % (AUTO) 89.5 % (43.0-81.0); PLATELET COUNT (AUTO) 126 /CMM (150-450); WHITE BLOOD COUNT (AUTO) 17.9 K/uL (4.3-11.0)
--- NOTE | 2019-12-20 04:00 | NUR ---
remains more responsive,opens eyes and coughing hard and bucking the ventilator more frequently opening his lips and even slightly moving head,but still no movement of extremities .
[2019-12-20 04:10] LABS: CALCIUM, SERUM 8.6 mg/dL (8.5-10.1); CREATININE 6.4 mg/dL (0.6-1.3); MAGNESIUM 2.9 mg/dL (1.8-2.4); POTASSIUM 4.3 mmol/L (3.5-5.1)
[2019-12-20 04:17] LABS: PHOSPHORUS 8.6 mg/dL (2.5-4.9)
--- NOTE | 2019-12-20 06:00 | NUR ---
BP SUSTAINING IN THE 160'S. 0610 OB=777/101, prn METOPROLOL FOR BP control given .WILL MONITOR if not will try a little sedation as patient awakens more often with strong cough and breathing a little deep and hard.
[2019-12-20] MEDS: METOPROLOL TARTRATE INJ 5 MG/5 ML AMPUL IVP PRN (06:11)
--- NOTE | 2019-12-20 07:00 | NUR ---
FOR TRACHEOSTOMY TODAY,MAINTAINED NPO.REPORT GIVEN TO ISIAH TAPIA
--- NOTE | 2019-12-20 07:15 | NUR ---
RN INITIAL NOTES RECEIVED PT INTUBATED, ON VENT. NO RESPIRATORY DISTRESS NOTED. HOB ELEVATED. NO SIGNS OF PAIN NOTED. RIGHT NARE NGT IN PLACE, CLAMPED. RIGHT IJ AND RIGHT FEMORAL HD CATH IN PLACE. DOMINGUEZ IN PLACE. BLE ELEVATED. FOR TRACH PLACEMENT TODAY. WILL CLOSELY MONITOR
--- NOTE | 2019-12-20 07:26 | NUR ---
WOUND CARE CONSULT: PT SEEN FOR GLUTEAL CREASE INCONTINENCE ASSOCIATED SKIN DAMAGE. RASH IS IMPROVING TO ABDOMINAL/GROIN FOLDS AND BUTTOCKS. PT HAS BEEN INCONTINENT OF STOOL. RECOMMENDATIONS MADE FOR SKIN PROTECTION. DISCUSSED WITH NURSING STAFF. WILL SEE PRN. DRAKE IN AGREEMENT WITH PLAN OF CARE. PT IS ON GOODRICH ISOFLEX LOW AIRLOSS BED. WILL SEE ALANA. Addendum: 12/20/19 at 0728 by JOSHUA HA WNDNU Amended: Links added.
[2019-12-20] MEDS: PANTOPRAZOLE 40 MG TABLET.DR PO SCH (07:30)
[2019-12-20] MEDS: LORAZEPAM INJ 2 MG/ML VIAL IV PRN (07:31)
[2019-12-20] MEDS ORDERED: CELLULOSE,OXIDIZED 1 PKT EACH MC ONE ×3 (07:32→11:02)
[2019-12-20] MEDS: LEVETIRACETAM SOL (5 ML) 100 MG/ML UDC GT SCH ×2 (08:59→21:31)
[2019-12-20] MEDS: AMANTADINE HCL 100 MG CAPSULE PO SCH ×2 (08:59→16:59)
[2019-12-20] MEDS: SEVELAMER CARBONATE 800 MG POWD.PACK GT SCH ×3 (08:59→16:59)
[2019-12-20] MEDS: MODAFINIL 100 MG TABLET PO SCH (08:59)
[2019-12-20] MEDS: CLOTRIMAZOLE 1% 15 GM TUBE TP SCH ×2 (08:59→16:59)
--- NOTE | 2019-12-20 10:07 | NUR ---
RN NOTES PT LEFT TO OR FOR TRACH PLACEMENT. IN STABLE CONDITION
[2019-12-20] MEDS: ACETYLCYSTEINE 10% SOLN 400 MG/4 ML VIAL NEB SCH ×3 (10:30→23:30)
[2019-12-20] MEDS ORDERED: SEVOFLURANE 250 ML BOTTLE IH ONE (10:31)
--- NOTE | 2019-12-20 11:18 | NUR ---
RN NOTES PT BACK FROM OR. SP TRACH PLACEMENT, GRAHAM #8. NO SIGNS OF BLEEDING NOTED. NO RESPIRATORY DISTRESS NOTED. PT CONNECTED TO VENT. PT CONNECTED TO MONITOR. REGINA BERMEO AT BEDSIDE TO RECOVER PT. WILL CLOSELY MONITOR.
[2019-12-20] MEDS ORDERED: LABETALOL HCL IV 100MG VIAL ONE (11:27)
--- NOTE | 2019-12-20 11:30 | NUR ---
RT PT TRANSPORTED FROM SURGERY BACK TO ICU SUCCESSFULLY. SPARE TRACH WAS PLACED BEDSIDE AND AMBU BAG NOTED HOB. NO SOB OR RESP DISTRESS NOTED AT THIS TIME. WILL CONTINUE TO MONITOR.
[2019-12-20] MEDS: NEPRO 1,000 ML BOTTLE GT PRN (13:57)
--- NOTE | 2019-12-20 18:30 | NUR ---
RN CLOSING NOTES TRACH IN PLACE, ON VENT. BLOOD TINGED SECRETIONS NOTED. HOB ELEVATED. NO SIGNS OF PAIN NOTED. NGT IN PLACE. TOLERATING TUBE FEEDING WELL. KEPT CLEAN AND DRY. TX PROVIDED ORDERED. BLE ELEVATED. HEMODIALYSIS ONGOING. VS WNL. WILL ENDORSE FOR CONTINUITY OF CARE.
--- NOTE | 2019-12-20 19:25 | NUR ---
ICU/EMPLOYMENT LAW ATTORNEY RECEIVED REPORT FROM DAY NURSE. SEE FLOWSHEET FOR ASSESSMENT, ALONG WITH SKIN ISSUES WHICH ARE ADDRESSED AND THE INTERVENTIONS TO EACH. PT IS OBTUNDED. PT IS S/P TRACH TODAY 12/20/19 TOLERATING CURRENT VENT SETTINGS WELL WITH SATURATION AT 92-94%. PT WAS TURN AND REPOSITION FOR COMFORT AND CARE. WILL CONTINUE TO MONITOR THIS PT, NO ACUTE DISTRESS SEEN. PT ALSO HAS CVP MONITORING WITH READINGS EVERY 4 HOURS.
--- NOTE | 2019-12-20 19:51 | NUR ---
RT Note Pt rcvd trached on AC setting. Tomás #8 trach in midline.Trach patent and secure. Ambu bag and spare trach bedside. Alarms on and audible. SX done, small thick secrections noted. No signs of resp distress noted. Will continue to monitor Q shift. Addendum: 12/21/19 at 0401 by STEVEN RODNEY RT Amended: Links added.
--- NOTE | 2019-12-20 20:10 | NUR ---
ICU/PAWN BROKER HD COMPLETED WITH 2 LITERS TAKEN OFF. VITAL SIGNS REMAIN STABLE. NO ACUTE DISTRESS SEEN AT THIS TIME.
--- NOTE | 2019-12-20 21:35 | NUR ---
ICU/BUILDING SURVEYOR PT'S N/G TUBE HAS POSITIVE PLACEMENT, HOWEVER THERE IS RESIDUALS OF 100ML. WILL CONTINUE TO MONITOR THIS PT AND HIS RESIDUALS.
--- NOTE | 2019-12-20 22:45 | NUR ---
ICU/MASTER LAY OUT SPECIALIST PT WAS GIVEN ORAL CARE AT THIS TIME , ALONG WITH PM CARE. PT TOLERATED THIS WELL. PT REMAINS ON CURRENT VENT SETTINGS WITH SATURATION AT 94-96%. WILL CONTINUE TO MONITOR THIS PT AND HIS SATURATION. PT WAS TURNED AND REPOSITIONED FOR COMFORT AND CARE, NO ACUTE DISTRESS SEEN AT THIS TIME.
[2019-12-21] VITALS (40 sets, daily range): BP systolic 116–172; BP diastolic 65–105
[2019-12-21] MEDS: HYDROCORTISONE SOD SUCCINATE 100 MG/2 ML VIAL IV SCH ×3 (00:12→17:20)
--- NOTE | 2019-12-21 02:10 | NUR ---
ICU/VENDOR RELATIONSHIP MANAGER PT WAS GIVEN ORAL CARE AT THIS TIME , ALONG WITH AM CARE. PT TOLERATED THIS WELL. PT REMAINS ON CURRENT VENT SETTINGS WITH SATURATION AT 96%. WILL CONTINUE TO MONITOR THIS PT AND HIS SATURATION. PT WAS TURNED AND REPOSITIONED FOR COMFORT AND CARE, NO ACUTE DISTRESS SEEN AT THIS TIME.
--- NOTE | 2019-12-21 04:20 | NUR ---
ICU/TRIMMER LOADER AM LABS WERE DONE, AWAIT FOR ANY ABNORMAL RESULTS.
[2019-12-21] MEDS: IV NS 0.9% 250 ML IV PRN ×2 (05:00→20:21)
[2019-12-21] MEDS: ZOSYN IVPB 2.25 G in IV D5W 50ml IV SCH ×4 (05:53→17:23)
[2019-12-21 07:07] LABS: BASOPHILS % (AUTO) 0.2 % (0.0-2.0); EOSINOPHILS % (AUTO) 0.1 % (0.0-6.0); HEMATOCRIT 29 % (39-51); HEMOGLOBIN 9.6 g/dL (13.5-17.5); LYMPHOCYTES # (AUTO) 0.6 /CMM (0.8-4.8); LYMPHOCYTES % (AUTO) 2.7 % (20.0-44.0); MEAN CORPUSCULAR HGB CONC 34 g/dl (31.0-36.0); MEAN CORPUSCULAR VOLUME 124 fL (80-96); MONOCYTES # (AUTO) 0.9 /CMM (0.1-1.30); MONOCYTES % (AUTO) 4.2 % (2.0-12.0); NEUTROPHILS # (AUTO) 19.3 /CMM (1.8-8.9); NEUTROPHILS % (AUTO) 92.8 % (43.0-81.0); PLATELET COUNT (AUTO) 80 /CMM (150-450); RED BLOOD CELL COUNT(AUTO) 2.31 MIL/uL (4.5-6.0); WHITE BLOOD COUNT (AUTO) 20.8 K/uL (4.3-11.0)
[2019-12-21 07:20] LABS: CALCIUM, SERUM 8.3 mg/dL (8.5-10.1); CREATININE 5.8 mg/dL (0.6-1.3); MAGNESIUM 2.8 mg/dL (1.8-2.4); POTASSIUM 4.8 mmol/L (3.5-5.1)
[2019-12-21] MEDS: ACETYLCYSTEINE 10% SOLN 400 MG/4 ML VIAL NEB SCH ×3 (07:35→23:37)
[2019-12-21 07:36] LABS: PHOSPHORUS 8.6 mg/dL (2.5-4.9)
--- NOTE | 2019-12-21 08:00 | NUR ---
received pt from night court magistrate, obtunded, responds to pain stimuli, SR, T/V, sat well, NG to feeding tolerates well, f/c low output, HD pt, v/s stable, no pain, pt turned and repositioned.
[2019-12-21] MEDS: PANTOPRAZOLE 40 MG TABLET.DR PO SCH (08:20)
[2019-12-21] MEDS: SEVELAMER CARBONATE 800 MG POWD.PACK GT SCH ×3 (08:21→17:20)
[2019-12-21] MEDS: MODAFINIL 100 MG TABLET PO SCH ×2 (08:21→17:20)
[2019-12-21] MEDS: LEVETIRACETAM SOL (5 ML) 100 MG/ML UDC GT SCH ×2 (08:21→20:58)
[2019-12-21] MEDS: AMANTADINE HCL 100 MG CAPSULE PO SCH ×2 (08:21→17:20)
[2019-12-21] MEDS: CLOTRIMAZOLE 1% 15 GM TUBE TP SCH ×2 (08:22→17:21)
--- NOTE | 2019-12-21 17:00 | NUR ---
pt is resting in the bed, obtunded, responds to pain stimuli, SR, on the vent, sat well, NG to feeding, tolerates well, f/c low output, v/s stable, no pain, pt cleaned, changed and repositioned q2hrs.
--- NOTE | 2019-12-21 19:05 | NUR ---
Received patient form ICU via bed, on mech vent, tolerating settings well, no SOB, distress noted, Mcmahon cath in place draining urine by gravity, will endorse to PM shift RN for YANETH
--- NOTE | 2019-12-21 19:20 | NUR ---
R fem HD cath in place, Ry IJ TLC, NG tube in place.
--- NOTE | 2019-12-21 19:25 | NUR ---
RN OPENING NOTES: RECEIVED OBTUNDED PT IN BED RESTING COMFORTABLY. PATIENT IN NO S/SX OF ACUTE DISTRESS AT THIS TIME. NO SOB NOTED. PATIENT'S BREATHING IS EVEN AND UNLABORED. PATIENT ON MECHANICAL VENT; SETTINGS PRESCRIBED; PT TOLERATED WELL. AMBU BAG AT BED SIDE ALARMS SET PER PROTOCOL AND AUDIBLE. VENT PLUGGED IN TO RED OUTLET. NO DISTRESS NOTED. PATIENT ON TELE MONITORING READING SINUS RHYTHM HR IS @92 AT THE TIME OF RECEIVED. NOTED NGT IN PLACED. CLAMPED AT THIS TIME. PLACEMENT VERIFIED WITH AUSCULTATION. NO RESIDUAL TAKEN AT THIS TIME. NOTED IV SITE ON R IJ 3LUMEN CATH AND R FEMORAL HD CATH; INTACT AND PATENT NO S/S OF INFECTION OR INFILTRATION. ON NEPRO DIET @20MLS/HR; PT WILL BE NPO BY MIDNIGHT IN PREPARATION FOR PEG PLACEMENT IN THE MORNING. SAFETY MEASURES HAVE BEEN PROVIDED AND IMPLEMENTED. PATIENT BED ALARM IS ON. HEAD OF BED ELEVATED. BED IS LOCKED, IN LOWEST POSITION AND SIDE RAILS UP. CALL LIGHT WITHIN REACH OF THE PATIENT. ISOLATION PRECAUTIONS IN PLACE. WILL CONTINUE TO MONITOR AND REASSESS FOR ANY CHANGES AND WILL CARRY OUT ANY ONGOING AND ACTIVE MD ORDER.
--- NOTE | 2019-12-21 20:30 | NUR ---
RN NOTES RN CHECK PLACEMENT of NG-TUBE, PLACEMENT VERIFIED AND CONFIRMED VIA AUSCULTATION WITH PILL PACKER ( AMELIA Thomas) NO RESIDUAL OUTPUT AT THIS TIME. RESTARTED FEEDING OF NEPRO @20MLS/HR. ALSO ADMINISTERED DUE MEDS FOR 2100 VIA NGT. WILL CONTINUE TO ASSESS AND MONITOR THROUGHOUT THE SHIFT.
--- NOTE | 2019-12-21 20:50 | NUR ---
RN NOTES RECEIVED CALL FROM SURGERY , SPOKE WITH MADAN ( VP PURCHASING) ADVISED THAT PT WILL BE HAVING PEG PLACEMENT JOE, AND SHE TRIED TO CHECK FOR CONSENT FOR THE PROCEDURE AND ANESTHESIA. ADVISED HER THAT CONSENT FOR BOTH WERE SECURED AND PLACED ON PT'S CHART. ALSO CONFIRMED THAT PT IS A VENT PT AND WILL BE NPO AFTER MIDNIGHT. CHARGE NR MADE AWARE.
--- NOTE | 2019-12-21 22:00 | NUR ---
RN NOTES NO CHANGE IN PATIENT CONDITION AT THIS TIME PATIENT VITALS STABLE, NO SIGNS OF ACUTE RESPIRATORY DISTRESS. BILINGUAL TEACHER AIDE MADE AWARE. WILL CONTINUE TO MONITOR AND REASSESS FOR ANY CHANGES THROUGHOUT THE SHIFT.
[2019-12-22] VITALS: BP 141/85
--- NOTE | 2019-12-22 00:10 | NUR ---
RN NOTES PT PLACED ON NPO; UNHOOKED FROM TUBE FEEDING AT THIS TIME IN PREPARATION FOR PEG PLACEMENT IN THE MORNING. RN RE-CHECKED PLACEMENT of NG-TUBE, PLACEMENT VERIFIED AND CONFIRMED VIA AUSCULTATION WITH ANOTHER RN ( GRACE Kelly) TEXTILE SCREEN MAKER MADE AWARE. WILL CONTINUE TO ASSESS AND MONITOR THROUGHOUT THE SHIFT.
[2019-12-22] MEDS: ZOSYN IVPB 2.25 G in IV D5W 50ml IV SCH ×4 (00:46→21:06)
--- NOTE | 2019-12-22 01:00 | NUR ---
RN NOTES NO CHANGE IN PATIENT CONDITION AT THIS TIME PATIENT VITALS STABLE, NO SIGNS OF ACUTE RESPIRATORY DISTRESS. PATIENT CLERICAL ASSISTANT MADE AWARE. WILL CONTINUE TO MONITOR AND REASSESS FOR ANY CHANGES THROUGHOUT THE SHIFT.
[2019-12-22 04:00] VITALS: BP 123/79
--- NOTE | 2019-12-22 04:00 | NUR ---
RN NOTES RN RE-CHECKED PLACEMENT of NG-TUBE, PLACEMENT VERIFIED AND CONFIRMED VIA AUSCULTATION WITH NIKE ATHLETE ( AMELIA Thomas) NO RESIDUAL OUTPUT AT THIS TIME. WILL CONTINUE TO ASSESS AND MONITOR THROUGHOUT THE SHIFT.
--- NOTE | 2019-12-22 04:30 | NUR ---
RN NOTES CALLED MR AMILCAR TRINIDAD ( BROTHER OF THE PT) TO GET CONSENT FOR THE FOLLOWING : PRCEDURE EGD PEG PLACEMENT, ANESTHESIA CONSENT, BLOOD TRANSFUSION CONSENT. HE PROVIDED TEL AUTHORIZATION /CONSENT. WITNESSED BY ROPEMAN- AMELIA Curran. CONSENT FORMS SECURED AND PLACED IN TO PT'S CHART.
--- NOTE | 2019-12-22 05:00 | NUR ---
RN NOTES NO CHANGE IN PATIENT CONDITION AT THIS TIME PATIENT VITALS STABLE, NO SIGNS OF ACUTE RESPIRATORY DISTRESS. SPOOL SANDER MADE AWARE. WILL CONTINUE TO MONITOR AND REASSESS FOR ANY CHANGES THROUGHOUT THE SHIFT.
[2019-12-22 06:28] LABS: BASOPHILS % (AUTO) 0.2 % (0.0-2.0); EOSINOPHILS % (AUTO) 0.3 % (0.0-6.0); HEMATOCRIT 29 % (39-51); HEMOGLOBIN 9.7 g/dL (13.5-17.5); LYMPHOCYTES # (AUTO) 0.8 /CMM (0.8-4.8); LYMPHOCYTES % (AUTO) 3.4 % (20.0-44.0); MEAN CORPUSCULAR HGB CONC 34 g/dl (31.0-36.0); MEAN CORPUSCULAR VOLUME 123 fL (80-96); MONOCYTES # (AUTO) 1.6 /CMM (0.1-1.30); MONOCYTES % (AUTO) 6.4 % (2.0-12.0); NEUTROPHILS # (AUTO) 21.9 /CMM (1.8-8.9); NEUTROPHILS % (AUTO) 89.7 % (43.0-81.0); PLATELET COUNT (AUTO) 66 /CMM (150-450); RED BLOOD CELL COUNT(AUTO) 2.34 MIL/uL (4.5-6.0); WHITE BLOOD COUNT (AUTO) 24.4 K/uL (4.3-11.0)
[2019-12-22] MEDS ORDERED: ANESTHESIA TRAY IN PYXIS 1 EA TRAY MC ONE (06:49)
[2019-12-22 06:56] LABS: CALCIUM, SERUM 8.3 mg/dL (8.5-10.1); CREATININE 6.5 mg/dL (0.6-1.3)
--- NOTE | 2019-12-22 06:56 | NUR ---
RN CLOSING NOTES PATIENT REMAINS IN ROOM IN NO SIGNS OF RESPIRATORY DISTRESS. PATIENT SATURATING 98% OF 02. VITAL SIGNS WNL. IV LINE MAINTAINED, INTACT, PATENT AND FLUSHING, NO SITE REDNESS OR INFILTRATION. SAFETY PRECAUTIONS IN PLACE AND COMFORT MEASURES RENDERED. BED IN LOWEST POSITION, CALL LIGHT WITHIN REACH, BREAKS ON, SIDE RAILS UP. ALL NEEDS ATTENDED, MEDICATIONS GIVEN SCHEDULED AND ORDERED ; SHIFT ASSESSMENT/BEDBATH/SKIN CARE DONE. PATIENT KEPT CLEAN AND DRY. PT WILL BE HAVING PEG PLACEMENT TODAY ALL CONSENTS SECURED AND PLACED INTO THE CHART. WILL ENDORSE TO INCOMING SHIFT FOR YANETH WITH ALL PERTINENT INFO REGARDING PATIENT STATUS.
--- NOTE | 2019-12-22 07:03 | NUR ---
RN NOTES RECEIVED CALL FROM LAB VIA ANGELIQUE : RELAYED CRITICAL VALUE OF BUN : 125 AND PHOS 10. WILL ENDORSE TO INCOMING RN TO ADDRESS ACCODINGLY. SENIOR SALES REPRESENTATIVE MADE AWARE.
[2019-12-22 07:30] LABS: EOSINOPHILS % (MANUAL) 1 % (0-4); LYMPHOCYTES % (MANUAL) 4 % (16-48); MONOCYTES % (MANUAL) 6 % (0-11.0); NEUTROPHILS % (MANUAL) 89 (42-76)
--- NOTE | 2019-12-22 07:30 | NUR ---
INSPECTOR MACHINE CUT GLASS OPENING NOTES RECEIVED OBTUNDED, PT IN BED RESTING COMFORTABLY. NOT IN ANY ACUTE DISTRESS AT THIS TIME. PATIENT'S BREATHING IS EVEN AND UNLABORED. PATIENT ON MECHANICAL VENT. PT TOLERATED WELL. PATIENT ON TELE MONITORING READING SINUS RHYTHM HR IS @ 90S. NOTED NGT IN PLACED. CLAMPED AT THIS TIME. PLACEMENT VERIFIED WITH AUSCULTATION. NO RESIDUAL TAKEN AT THIS TIME. NOTED IV SITE ON R IJ 3LUMEN CATH AND R FEMORAL HD CATH. INTACT AND PATENT NO S/S OF INFECTION OR INFILTRATION. ON NEPRO DIET @20MLS/HR TO START 0800 12/23/2019. SAFETY MEASURES HAVE BEEN PROVIDED AND IMPLEMENTED. PATIENT BED ALARM IS ON. HEAD OF BED ELEVATED. BED IS LOCKED. WILL CONTINUE TO MONITOR.
[2019-12-22] MEDS: ACETYLCYSTEINE 10% SOLN 400 MG/4 ML VIAL NEB SCH ×3 (07:48→23:50)
[2019-12-22 08:00] VITALS: BP 123/87
[2019-12-22] MEDS: SEVELAMER CARBONATE 800 MG POWD.PACK GT SCH ×3 (09:15→17:23)
[2019-12-22] MEDS: MODAFINIL 100 MG TABLET PO SCH ×2 (09:15→17:23)
[2019-12-22] MEDS: HYDROCORTISONE SOD SUCCINATE 100 MG/2 ML VIAL IV SCH (09:16)
[2019-12-22] MEDS: LEVETIRACETAM SOL (5 ML) 100 MG/ML UDC GT SCH ×2 (09:16→21:06)
[2019-12-22] MEDS: AMANTADINE HCL 100 MG CAPSULE PO SCH ×2 (09:30→17:23)
[2019-12-22] MEDS: CLOTRIMAZOLE 1% 15 GM TUBE TP SCH ×2 (09:32→17:24)
[2019-12-22] MEDS: PANTOPRAZOLE 40 MG/PACK PACK GT SCH (09:35)
[2019-12-22 12:00] VITALS: BP 147/100
[2019-12-22] MEDS ORDERED: HYDROCORTISONE SOD SUCCINATE 100 MG/2 ML VIAL IV SCH (15:00)
[2019-12-22 16:00] VITALS: BP 147/100
--- NOTE | 2019-12-22 19:30 | NUR ---
HAND STONE POLISHER CLOSING NOTES PATIENT REMAINS IN ROOM IN NO SIGNS OF RESPIRATORY DISTRESS. PATIENT SATURATING 97% OF 02. VITAL SIGNS WNL. IV LINE MAINTAINED, INTACT, PATENT AND FLUSHING, NO SITE REDNESS OR INFILTRATION. SAFETY PRECAUTIONS IN PLACE AND COMFORT MEASURES RENDERED. BED IN LOWEST POSITION, CALL LIGHT WITHIN REACH, BREAKS ON, SIDE RAILS UP.G-TUBE INTACT. TO START GTF AT 0800 12/23/2019. ALL NEEDS ATTENDED. WILL ENDORSE TO INCOMING SHIFT FOR YANETH.
[2019-12-22 20:00] VITALS: BP 136/88
--- NOTE | 2019-12-22 20:00 | NUR ---
RECEIVED PT IN BED OBTUNDED. PT IS ON VENT VIA TRACH SATING 96%.PATIENT'S BREATHING IS EVEN AND UNLABORED. PATIENT ON MECHANICAL VENT. PT ON TELE MONITOR SHOWING SR IN 90s. PT HAS G TUBE CLAMPED.PT HAS RIGHT IJ PATENT, INTACT, AND R FEMORAL HD CATH. PT HAS DOMINGUEZ DRAINING YELLOW URINE. SAFETY MEASURE IN PLACE HOB ELEVATED, BED AT LOWEST POSITION ,LOCKED, SIDE RAILS UP X2.
[2019-12-23] VITALS (24 sets, daily range): BP systolic 118–153; BP diastolic 77–98
--- NOTE | 2019-12-23 03:30 | NUR ---
RN NOTE MAGGOTS NOTED IN TRACHEOSTOMY SITE. DR DICK MADE AWARE . PER DR DIKC PICKED THEM OUT. A FLY LAID LARVAE.GET MANY YOU CAN AREA CLEANED AND SUCTIONED.
--- NOTE | 2019-12-23 05:08 | NUR ---
Received call from RN stating that pt showed low spo2 reading on 45% Fio2. Pt was suctioned and and continue to show spo2 87-88%. Pt was placed on 100% Fio2 and stat abg done shortly after. MD was made aware of abg result and awaiting new orders. trauma manager was made aware that pt should transferred to icu due to high fio2 requirements. Addendum: 12/23/19 at 0626 by JORGE L VIRK RT Amended: Links added.
[2019-12-23] MEDS: ZOSYN IVPB 2.25 G in IV D5W 50ml IV SCH ×3 (05:18→21:35)
[2019-12-23 05:38] LABS: ABG OXYGEN SATURATION 93.4 % (92.0-98.5); ABG PCO2 36.7 mmHg (35.0-45.0); ABG PH 7.387 (7.350-7.450); ABG PO2 77.7 mmHg (75.0-100.0); AaDO2 598.6 mmHg; COHb 0.6 % (0.5-1.5); MetHb 0.2 % (0.0-1.5); O2Hb 92.7 % (94.0-97.0); PEEP,BG 5 cm H2O; SITE, ABG Right Radial; VENT MODE, BG AC 22/550/100%/+5; VT, ABG 550 mL
--- NOTE | 2019-12-23 07:10 | NUR ---
ICU patient arrived to ICU due to reported FiO2 requirement of 100%. no acute respiratory distress at this time. SPO 96%, RR 26 even& unlabored, (AC 22) patient attached to monitor, sinus tachy HR 111, BP WNL, no labs for this am noted, Dr. Steve Hope made aware
--- NOTE | 2019-12-23 07:30 | NUR ---
RN NOTE PT TRANSFERRED TO ICU. PT WAS ON 100% AND SATING 93 TO 95%. Addendum: 12/23/19 at 0736 by NASIM LALA RN PT WAS ON 100% FIO2.
--- NOTE | 2019-12-23 07:47 | NUR ---
laborer filter plant at bedside
[2019-12-23 07:56] LABS: BASOPHILS # (AUTO) 0.1 /CMM (0.0-0.2); BASOPHILS % (AUTO) 0.2 % (0.0-2.0); EOSINOPHILS % (AUTO) 1.2 % (0.0-6.0); HEMATOCRIT 28 % (39-51); HEMOGLOBIN 9.3 g/dL (13.5-17.5); LYMPHOCYTES # (AUTO) 0.8 /CMM (0.8-4.8); LYMPHOCYTES % (AUTO) 2.6 % (20.0-44.0); MEAN CORPUSCULAR HGB CONC 33 g/dl (31.0-36.0); MEAN CORPUSCULAR VOLUME 124 fL (80-96); MONOCYTES % (AUTO) 6.7 % (2.0-12.0); NEUTROPHILS # (AUTO) 26.1 /CMM (1.8-8.9); NEUTROPHILS % (AUTO) 89.3 % (43.0-81.0); PLATELET COUNT (AUTO) 59 /CMM (150-450); RED BLOOD CELL COUNT(AUTO) 2.29 MIL/uL (4.5-6.0); WHITE BLOOD COUNT (AUTO) 29.2 K/uL (4.3-11.0)
[2019-12-23] MEDS: LEVETIRACETAM SOL (5 ML) 100 MG/ML UDC GT SCH ×2 (08:06→21:36)
[2019-12-23] MEDS: MODAFINIL 100 MG TABLET PO SCH ×2 (08:06→13:20)
[2019-12-23] MEDS: AMANTADINE HCL 100 MG CAPSULE PO SCH ×2 (08:06→17:18)
[2019-12-23] MEDS: PANTOPRAZOLE 40 MG/PACK PACK GT SCH (08:06)
[2019-12-23] MEDS: HYDROCORTISONE SOD SUCCINATE 100 MG/2 ML VIAL IV SCH (08:07)
[2019-12-23] MEDS: SEVELAMER CARBONATE 800 MG POWD.PACK GT SCH ×3 (08:07→17:20)
[2019-12-23] MEDS: LORAZEPAM INJ 2 MG/ML VIAL IV PRN (08:07)
[2019-12-23 08:12] LABS: ALBUMIN 1.8 g/dL (3.4-5.0); BILIRUBIN,TOTAL 4.8 mg/dL (0.2-1.0); CALCIUM, SERUM 8.4 mg/dL (8.5-10.1); CREATININE 5.5 mg/dL (0.6-1.3); MAGNESIUM 2.8 mg/dL (1.8-2.4); PHOSPHORUS 7.8 mg/dL (2.5-4.9); POTASSIUM 4.7 mmol/L (3.5-5.1); TOTAL PROTEIN, SERUM 5.8 g/dL (6.4-8.2)
[2019-12-23] MEDS: ACETYLCYSTEINE 10% SOLN 400 MG/4 ML VIAL NEB SCH (08:25)
[2019-12-23] MEDS: FUROSEMIDE 40 MG/4 ML VIAL IV SCH (09:06)
[2019-12-23] MEDS: NEPRO 1,000 ML BOTTLE GT PRN (09:06)
[2019-12-23] MEDS: CLOTRIMAZOLE 1% 15 GM TUBE TP SCH ×2 (09:07→18:44)
[2019-12-23 10:10] LABS: BAND % (MANUAL) 24 % (0.0-5.0); EOSINOPHILS % (MANUAL) 2 % (0-4); LYMPHOCYTES % (MANUAL) 6 % (16-48); MONOCYTES % (MANUAL) 8 % (0-11.0); NEUTROPHILS % (MANUAL) 60 (42-76)
[2019-12-23] MEDS: METOPROLOL TARTRATE INJ 5 MG/5 ML AMPUL IVP PRN (10:20)
--- NOTE | 2019-12-23 19:16 | NUR ---
PATTERN HANGER Closing Titrated FiO2 & PEEP as ordered today with success, patient tolerated. [facility], FiO2 75%, PEEP 10, SPO2 96-98%, RR 24 (AC 22), even+unlabored. Opens eyes, doesn't track or follow command. SR/ST - metoprolol & ativan given x1 PRN as ordered at beginning of shift with success. Mcmahon drained 400mL today, with sediment. HD 600mL out. No BM. BUE & BLE swollen, MDs aware -lasix given. Turned per protocol. Nepro via PEG started today @20mL/hr, no residual noted, increased to 30mL/hr. Belly appears distended, bowel sounds active, patient obese, upon palpation: soft, nontender. R IJ & R FEM HD cath intact.
--- NOTE | 2019-12-23 19:20 | NUR ---
RN OPENING NOTES: RECEIVED OBTUNDED PT IN BED RESTING COMFORTABLY. PATIENT IN NO S/SX OF ACUTE DISTRESS AT THIS TIME. NO SOB NOTED. PATIENT'S BREATHING IS EVEN AND UNLABORED. PATIENT ON MECHANICAL VENT; SETTINGS PRESCRIBED; PT TOLERATED WELL. AMBU BAG AT BED SIDE ALARMS SET PER PROTOCOL AND AUDIBLE. VENT PLUGGED IN TO RED OUTLET. NO DISTRESS NOTED. PATIENT ON TELE MONITORING READING SINUS RHYTHM HR IS @95 BPM AT THE TIME OF RECEIVED. NOTED IV SITE ON R IJ 3LUMEN CATH AND R FEMORAL HD CATH; INTACT AND PATENT NO S/S OF INFECTION OR INFILTRATION. ON NEPRO DIET/FEEDING @35MLS/HR ( GOAL OF 45ML/HR) VIA G-TUBE ; G TUBE FLUSHING AND PATENT; SITE CLEAN DRY AND INTACT. SAFETY MEASURES HAVE BEEN PROVIDED AND IMPLEMENTED. PATIENT BED ALARM IS ON. HEAD OF BED ELEVATED. BED IS LOCKED, IN LOWEST POSITION AND SIDE RAILS UP. CALL LIGHT WITHIN REACH OF THE PATIENT. ISOLATION PRECAUTIONS IN PLACE. WILL CONTINUE TO MONITOR AND REASSESS FOR ANY CHANGES AND WILL CARRY OUT ANY ONGOING AND ACTIVE MD ORDER.
--- NOTE | 2019-12-23 21:10 | NUR ---
RN NOTES ADMINISTERED DUE MEDS VIA G TUBE FOR 2100, PRIOR TO ADMINISTRATION RN CHECK FOR PATENCY VIA FLUSHING. G TUBE NOTED TO BE INTACT, PATENT AND FLUSHING WELL. GEOMETRY PROFESSOR MADE AWARE. WILL CONTINUE TO MONITOR AND REASSESS FOR ANY CHANGES THROUGHOUT THE SHIFT
--- NOTE | 2019-12-23 22:00 | NUR ---
RN NOTES NO CHANGE IN PATIENT CONDITION AT THIS TIME PATIENT VITALS WNL NO SIGNS OF ACUTE RESPIRATORY DISTRESS. HIGH SPEED OPERATOR MADE AWARE. WILL CONTINUE TO MONITOR AND REASSESS FOR ANY CHANGES THROUGHOUT THE SHIFT.
[2019-12-24] VITALS (40 sets, daily range): BP systolic 116–159; BP diastolic 65–116
[2019-12-24] MEDS: ACETYLCYSTEINE 10% SOLN 400 MG/4 ML VIAL NEB SCH ×4 (00:27→23:50)
--- NOTE | 2019-12-24 01:05 | NUR ---
RN NOTES NOTED PT'S BP @154/95 AND HR AT 103. PRN MEDS GIVEN ( LORPESSOR 5MG/5ML /METOPROLOL INJ. TECHNICIAN TEST SYSTEMS MADE AWARE. WILL RE-EVALUATE AFTER 30 MINUTES- 1 HOUR. WILL CONTINUE TO MONITOR
[2019-12-24] MEDS: METOPROLOL TARTRATE INJ 5 MG/5 ML AMPUL IVP PRN ×2 (01:06→08:18)
--- NOTE | 2019-12-24 02:00 | NUR ---
RN NOTES NO NOTED CHANGES TO PATIENT CONDITION/STATUS. DETECTIVE HOMICIDE SQUAD MADE AWARE. WILL CONTINUE TO MONITOR AND REASSESS FOR ANY CHANGES THROUGHOUT THE SHIFT.
[2019-12-24] MEDS: LORAZEPAM INJ 2 MG/ML VIAL IV PRN ×3 (03:03→20:29)
[2019-12-24 04:30] LABS: BASOPHILS % (AUTO) 0.1 % (0.0-2.0); HEMATOCRIT 24 % (39-51); HEMOGLOBIN 7.8 g/dL (13.5-17.5); LYMPHOCYTES # (AUTO) 0.6 /CMM (0.8-4.8); LYMPHOCYTES % (AUTO) 2.2 % (20.0-44.0); MEAN CORPUSCULAR HGB CONC 33 g/dl (31.0-36.0); MEAN CORPUSCULAR VOLUME 125 fL (80-96); MONOCYTES # (AUTO) 1.6 /CMM (0.1-1.30); MONOCYTES % (AUTO) 5.9 % (2.0-12.0); NEUTROPHILS # (AUTO) 24.1 /CMM (1.8-8.9); NEUTROPHILS % (AUTO) 90.8 % (43.0-81.0); PLATELET COUNT (AUTO) 52 /CMM (150-450); WHITE BLOOD COUNT (AUTO) 26.6 K/uL (4.3-11.0)
[2019-12-24 04:37] LABS: RED BLOOD CELL COUNT(AUTO) 1.88 MIL/uL (4.5-6.0)
[2019-12-24] MEDS: ZOSYN IVPB 2.25 G in IV D5W 50ml IV SCH ×3 (04:40→20:28)
[2019-12-24 04:42] LABS: ALBUMIN 1.6 g/dL (3.4-5.0); BILIRUBIN,TOTAL 3.6 mg/dL (0.2-1.0); CALCIUM, SERUM 8.3 mg/dL (8.5-10.1); CREATININE 4.2 mg/dL (0.6-1.3); MAGNESIUM 2.6 mg/dL (1.8-2.4); PHOSPHORUS 5.7 mg/dL (2.5-4.9); POTASSIUM 4.5 mmol/L (3.5-5.1); TOTAL PROTEIN, SERUM 5.6 g/dL (6.4-8.2)
[2019-12-24] MEDS: MODAFINIL 100 MG TABLET PO SCH ×2 (05:56→12:21)
--- NOTE | 2019-12-24 06:00 | NUR ---
RN NOTES ADMINISTERED DUE MEDS (PROVIGIL 200MG/2TABS) VIA G TUBE FOR 2100, PRIOR TO ADMINISTRATION RN CHECK FOR PATENCY VIA FLUSHING. G TUBE NOTED TO BE INTACT, PATENT AND FLUSHING WELL. VETERINARIAN SMALL ANIMAL MADE AWARE. WILL CONTINUE TO MONITOR AND REASSESS FOR ANY CHANGES THROUGHOUT THE SHIFT
--- NOTE | 2019-12-24 06:56 | NUR ---
RN CLOSING NOTES PATIENT REMAINS IN ROOM IN NO SIGNS OF RESPIRATORY DISTRESS. PATIENT SATURATING 98% OF 02. VITAL SIGNS WNL. IV LINE MAINTAINED, INTACT, PATENT AND FLUSHING, NO SITE REDNESS OR INFILTRATION. SAFETY PRECAUTIONS IN PLACE AND COMFORT MEASURES RENDERED. BED IN LOWEST POSITION, CALL LIGHT WITHIN REACH, BREAKS ON, SIDE RAILS UP. ALL NEEDS ATTENDED, MEDICATIONS GIVEN SCHEDULED AND ORDERED ; SHIFT ASSESSMENT/BEDBATH/SKIN CARE DONE. PATIENT KEPT CLEAN AND DRY. WILL ENDORSE TO INCOMING SHIFT FOR YANETH WITH ALL PERTINENT INFO REGARDING PATIENT STATUS.
[2019-12-24] MEDS: PANTOPRAZOLE 40 MG/PACK PACK GT SCH (08:16)
[2019-12-24] MEDS: AMANTADINE HCL 100 MG CAPSULE PO SCH ×2 (08:16→16:18)
[2019-12-24] MEDS: FUROSEMIDE 40 MG/4 ML VIAL IV SCH (08:17)
[2019-12-24] MEDS: LEVETIRACETAM SOL (5 ML) 100 MG/ML UDC GT SCH ×2 (08:17→20:28)
[2019-12-24] MEDS: SEVELAMER CARBONATE 800 MG POWD.PACK GT SCH ×3 (08:17→16:18)
[2019-12-24] MEDS: HYDROCORTISONE SOD SUCCINATE 100 MG/2 ML VIAL IV SCH (08:18)
[2019-12-24] MEDS: CLOTRIMAZOLE 1% 15 GM TUBE TP SCH ×2 (08:21→16:18)
[2019-12-24] MEDS: NEPRO 1,000 ML BOTTLE GT PRN (10:11)
[2019-12-24 10:28] LABS: ABG BASE EXCESS -0.4 mmol/L; ABG OXYGEN SATURATION 98.5 % (92.0-98.5); ABG PCO2 37.7 mmHg (35.0-45.0); ABG PO2 149.7 mmHg (75.0-100.0); COHb 0.3 % (0.5-1.5); MetHb 0.2 % (0.0-1.5); PEEP,BG 10 cm H2O; SITE, ABG Right Radial; VENT MODE, BG AC 75%; VT, ABG 550 mL
--- NOTE | 2019-12-24 11:53 | NUR ---
patient hypertensive and tachycardic since beginning of shift (see viasigns). metoprolol PRN & scheduled lasix given, not much effect. Ativan given about 2 hrs later with effect. New order for morphine PRN received. will cont to monitor patient
--- NOTE | 2019-12-24 12:20 | NUR ---
dialysis nurse at bedside. hold abx until after completion
[2019-12-24] MEDS: MORPHINE SULFATE INJ 2 MG/ML DISP.SYRIN IV PRN (17:36)
--- NOTE | 2019-12-24 19:30 | NUR ---
RN NOTES RECEIVED PATIENT IN BED ON MECHANICAL VENT, VENT SETTING TOLERATING WELL ORDERED. PATIENT RESPONSIVE TO PAIN STIMULI. BREATHING EVEN AND UNLABORED. RESPIRATION EVEN NON LABORED. TELE MONITOR SR/ST 104. ON GTF TOLERATING WELL NO RESIDUAL NOTED. PLACEMENT CHECKED BY AUSCULTATION. IV SITE INTACT PATENT FLUSHES WELL. F/C INTACT YELLOW URINE RUNNING TO GRAVITY. HOB ELEVATED. SAFETY MEASURES IN PLACE, SIDE RAILS UP, CALL LIGHT WITHIN REACH. BED IN LOW AND LOCKED POSITION. WILL CONT TO MONITOR FOR YANETH.
--- NOTE | 2019-12-24 19:46 | NUR ---
GLASS SMOOTHER Closing Titration of FiO2 & PEEP today w/ success - SPO2 97%, no respiratory distress. SPO2 85% after cleaning, went back up soon after. Patient opens eyes to name. Does not follow command or track. SR/ST HR 90s-110, medications given as ordered PRN. trach site w/ small amount bleeding. PEG in place, feedings tolerated, no residual, stomach soft, placement verified via auscultation and aspiration. R IJ + R Groin HD cath intact. HD done today w/ 3500mL output, tolerated well. Mcmahon 325mL out w/ sediment. No BM. Respiratory culture sent
[2019-12-25] VITALS (45 sets, daily range): BP systolic 119–161; BP diastolic 69–99
--- NOTE | 2019-12-25 02:00 | NUR ---
MOUTH CARE PROVIDED, REPOSITION FOR SAFETY.
--- NOTE | 2019-12-25 03:51 | NUR ---
BED BATH GIVEN TOLERATED WELL.
[2019-12-25] MEDS: ZOSYN IVPB 2.25 G in IV D5W 50ml IV SCH ×3 (05:43→20:11)
[2019-12-25] MEDS: MODAFINIL 100 MG TABLET PO SCH ×2 (05:54→12:34)
--- NOTE | 2019-12-25 07:31 | NUR ---
RN NOTES PATIENT HAD AN EPISODE OF DESATURATION 88% RT AT BED SIDE INCREASED FIO2 TO 100% SATING WELL 99-100%. ALL DUE MEDICATIONS WERE GIVEN TOLERATED WELL. IV SITES INTACT PATENT FLUSHED WELL. F/C INTACT YELLOW URINE RUNNING TO GRAVITY. KEPT CLEAN DRY AND COMFORTABLE. SAFETY MEASURES IN PLACE, CALL LIGHT WITHIN REACH. ENDORSE TO AM NURSE FOR YANETH.
[2019-12-25] MEDS: ACETYLCYSTEINE 10% SOLN 400 MG/4 ML VIAL NEB SCH ×3 (07:33→23:06)
--- NOTE | 2019-12-25 07:45 | NUR ---
ICU/RN PT IS NEW TRACH ON THE VENT AC MODE,FIO2-100%. [id number]%.V/S STABLE,AFEBRILE.NO PAIN REPORTED AT THIS TIME.PT HAS BLOODY DISCHARGE FROM THE TRACH SIDE.NEW DRESSING APPLIED.TRACH TIE CHANGED.PT HAS RIGHT IJ TLC. DRESSING ALSO CHANGED.LEFT FEMORAL HD CATH. GENERALIZED EDEMA PRESENT.NEW G-TUBE INFUSING WITH NEPRO AT 45 ML/HR. NO RESIDUAL NOTED.ABDOMEN DISTENDED,BOWEL SOUNDS PRESENT .PT IS OBESE. F/C DRAINING WITH JOYCE CLOUDY URINE. SUCTION PROVIDED. REPOSITION FOR COMFORT.
[2019-12-25] MEDS: AMANTADINE HCL 100 MG CAPSULE PO SCH ×2 (08:37→16:42)
[2019-12-25] MEDS: PANTOPRAZOLE 40 MG/PACK PACK GT SCH (08:37)
[2019-12-25] MEDS: LEVETIRACETAM SOL (5 ML) 100 MG/ML UDC GT SCH ×2 (08:37→20:11)
[2019-12-25] MEDS: FUROSEMIDE 40 MG/4 ML VIAL IV SCH (08:37)
[2019-12-25] MEDS: HYDROCORTISONE SOD SUCCINATE 100 MG/2 ML VIAL IV SCH (08:37)
[2019-12-25] MEDS: SEVELAMER CARBONATE 800 MG POWD.PACK GT SCH ×3 (08:37→16:42)
[2019-12-25] MEDS: CLOTRIMAZOLE 1% 15 GM TUBE TP SCH ×2 (08:38→16:43)
--- NOTE | 2019-12-25 09:00 | NUR ---
ICU/RN DUE MEDS ARE GIVEN ORDERED.DR TSAI SEEN THE PT.ABG DONE ,AM LABS ORDERED.
[2019-12-25 09:14] LABS: ABG BASE EXCESS 0.3 mmol/L; ABG OXYGEN SATURATION 99.2 % (92.0-98.5); ABG PCO2 37.2 mmHg (35.0-45.0); ABG PH 7.436 (7.350-7.450); ABG PO2 246.6 mmHg (75.0-100.0); AaDO2 429.2 mmHg; COHb 0.3 % (0.5-1.5); MetHb 0.2 % (0.0-1.5); O2Hb 98.7 % (94.0-97.0); PEEP,BG 6 cm H2O; SITE, ABG Right Radial; VT, ABG 550 mL
--- NOTE | 2019-12-25 09:18 | NUR ---
FIO2 TITRATE DOWN TO 50% PER DR. TSAI Addendum: 12/25/19 at 0918 by KAYKAY ARGUETA RT Amended: Links added.
[2019-12-25] MEDS: LORAZEPAM INJ 2 MG/ML VIAL IV PRN ×2 (09:34→23:26)
--- NOTE | 2019-12-25 10:23 | NUR ---
vent changes below made as order: fio2 60% peep +10 Addendum: 12/25/19 at 1023 by KAYKAY ARGUETA RT Amended: Links added.
[2019-12-25 10:42] LABS: BASOPHILS % (AUTO) 0.1 % (0.0-2.0); EOSINOPHILS % (AUTO) 0.9 % (0.0-6.0); HEMATOCRIT 22 % (39-51); LYMPHOCYTES # (AUTO) 0.6 /CMM (0.8-4.8); LYMPHOCYTES % (AUTO) 2.3 % (20.0-44.0); MEAN CORPUSCULAR HGB CONC 32 g/dl (31.0-36.0); MEAN CORPUSCULAR VOLUME 127 fL (80-96); MONOCYTES # (AUTO) 1.5 /CMM (0.1-1.30); MONOCYTES % (AUTO) 5.9 % (2.0-12.0); NEUTROPHILS % (AUTO) 90.8 % (43.0-81.0); PLATELET COUNT (AUTO) 67 /CMM (150-450); WHITE BLOOD COUNT (AUTO) 25.3 K/uL (4.3-11.0)
[2019-12-25 10:48] LABS: CALCIUM, SERUM 8.8 mg/dL (8.5-10.1); CREATININE 4.2 mg/dL (0.6-1.3); POTASSIUM 4.3 mmol/L (3.5-5.1)
[2019-12-25 10:53] LABS: RED BLOOD CELL COUNT(AUTO) 1.73 MIL/uL (4.5-6.0)
--- NOTE | 2019-12-25 11:00 | NUR ---
ICU/RN H/H- 7.0. MD NOTIFIED. 1 UNIT PRBC ORDERED.
[2019-12-25 11:10] LABS: EOSINOPHILS % (MANUAL) 1 % (0-4); LYMPHOCYTES % (MANUAL) 6 % (16-48); MONOCYTES % (MANUAL) 4 % (0-11.0); NEUTROPHILS % (MANUAL) 89 (42-76)
[2019-12-25] MEDS: IV NS 0.9% 250 ML IV PRN (11:48)
[2019-12-25 12:04] LABS: IRON, SERUM 26 ug/dl (50-175); TOTAL IRON BINDING CAPACITY 171 ug/dl (250-450)
[2019-12-25] MEDS: Z GUARD REMEDY 2 OZ OINT TP PRN (12:34)
[2019-12-25 12:44] LABS: FERRITIN 1920 ng/mL (8-388)
[2019-12-25] MEDS: NEPRO 1,000 ML BOTTLE GT PRN (14:07)
[2019-12-25] MEDS: ACETAMINOPHEN 325 MG TABLET PO PRN (14:19)
--- NOTE | 2019-12-25 14:40 | NUR ---
ICU/RN HD IS OVER 1.5L OUTPUT. 1 UNIT PRBC GIVEN WITH HD.PT TOLERATED WELL.NO S/S OF REACTION NOTED.
--- NOTE | 2019-12-25 16:45 | NUR ---
ICU/RN PM CARE PROVIDED.DUE MEDS ARE GIVEN ORDERED.WOUND DRESSING DONE ORDERED.PT HAS SOME BLOODY SECRETION FROM THE TRACH SIDE,DRESSING CHANGED.REDNESS ON ABDOMINAL FOLDS AND UNDER ARM NOTED.CREAM APPLIED ORDERED.
--- NOTE | 2019-12-25 19:30 | NUR ---
RN NOTES RECEIVED PATIENT IN BED WITH TACH, ON VENT, VENT SETTING TOLERATING WELL ORDERED. VITAL SIGNS WNL, PATIENT RESPONSIVE TO PAIN STIMULI. BREATHING EVEN AND UNLABORED. RESPIRATION EVEN NON LABORED. TELE MONITOR ST HR IN 114. ON GTF NEPRO RUNNING AT 45ML/HR TOLERATING WELL NO RESIDUAL NOTED. PLACEMENT CHECKED BY AUSCULTATION. HOB ELEVATED. RT FEMORAL HD CATH NO S/S OF BLEEDING NOTED, IV SITE INTACT PATENT FLUSHES WELL. F/C INTACT YELLOW URINE RUNNING TO GRAVITY. SAFETY MEASURES IN PLACE, SIDE RAILS UP, CALL LIGHT WITHIN REACH. BED IN LOW AND LOCKED POSITION. WILL CONT TO MONITOR FOR YANETH.
[2019-12-26] VITALS (30 sets, daily range): BP systolic 109–166; BP diastolic 66–105
[2019-12-26] MEDS: METOPROLOL TARTRATE INJ 5 MG/5 ML AMPUL IVP PRN (00:54)
--- NOTE | 2019-12-26 04:00 | NUR ---
BED BATH , MOUTH CRE PROVIDED, REPOSITION FOR SAFETY. WILL CONT TO MONITOR.
[2019-12-26 04:43] LABS: BASOPHILS # (AUTO) 0.1 /CMM (0.0-0.2); BASOPHILS % (AUTO) 0.2 % (0.0-2.0); EOSINOPHILS % (AUTO) 0.9 % (0.0-6.0); HEMATOCRIT 25 % (39-51); HEMOGLOBIN 8.2 g/dL (13.5-17.5); LYMPHOCYTES # (AUTO) 0.5 /CMM (0.8-4.8); LYMPHOCYTES % (AUTO) 1.8 % (20.0-44.0); MEAN CORPUSCULAR HGB CONC 33 g/dl (31.0-36.0); MEAN CORPUSCULAR VOLUME 118 fL (80-96); MONOCYTES # (AUTO) 1.6 /CMM (0.1-1.30); MONOCYTES % (AUTO) 6.1 % (2.0-12.0); NEUTROPHILS # (AUTO) 23.9 /CMM (1.8-8.9); PLATELET COUNT (AUTO) 88 /CMM (150-450); RED BLOOD CELL COUNT(AUTO) 2.11 MIL/uL (4.5-6.0); WHITE BLOOD COUNT (AUTO) 26.3 K/uL (4.3-11.0)
[2019-12-26] MEDS: ZOSYN IVPB 2.25 G in IV D5W 50ml IV SCH (05:02)
[2019-12-26 05:10] LABS: ALBUMIN 1.5 g/dL (3.4-5.0); BILIRUBIN,TOTAL 2.9 mg/dL (0.2-1.0); CREATININE 3.8 mg/dL (0.6-1.3); MAGNESIUM 2.4 mg/dL (1.8-2.4); PHOSPHORUS 4.7 mg/dL (2.5-4.9); POTASSIUM 4.1 mmol/L (3.5-5.1); TOTAL PROTEIN, SERUM 6.4 g/dL (6.4-8.2)
[2019-12-26 06:10] LABS: EOSINOPHILS % (MANUAL) 1 % (0-4); LYMPHOCYTES % (MANUAL) 2 % (16-48); MONOCYTES % (MANUAL) 7 % (0-11.0); NEUTROPHILS % (MANUAL) 90 (42-76)
[2019-12-26] MEDS: MODAFINIL 100 MG TABLET PO SCH ×2 (06:22→13:23)
[2019-12-26] MEDS: ACETAMINOPHEN 325 MG TABLET PO PRN ×2 (06:29→17:25)
--- NOTE | 2019-12-26 07:18 | NUR ---
RN NOTES NO S/S OF DISTRESS NOTED. DURING SHIFT PATIENT WAS GIVEN ROUTINE MEDICATIONS ALONG WITH PRN'S ATIVAN FOR AGITATION, METOPROLOL FOR HR 120, TYLENOL FOR TEMP 101.2 NOTED TO BE EFFECTIVE. RT FEMORAL HD CATH NO S/S OF BLEEDING NOTED, IV SITE INTACT PATENT FLUSHES WELL. HOB ELEVATED. GTF TOLERATING WELL NO RESIDUAL NOTED. F/C DRAINING WELL 335ML OUTPUT NOTED. MOUTH CARE PROVIDED. KEPT CLEAN DRY AND COMFORTABLE. SAFETY MEASURES IN PLACE, SIDE RAILS UP, BED IN LOW AND LOCKED POSITION. CALL LIGHT WITHIN REACH. ENDORSE TO AM NURSE FOR YANETH.
[2019-12-26] MEDS: ACETYLCYSTEINE 10% SOLN 400 MG/4 ML VIAL NEB SCH ×3 (07:35→23:33)
--- NOTE | 2019-12-26 07:58 | NUR ---
RT PATIENT REC'D TRACHED ON [facility] VENT WITH ORDERED SETTINGS VIKTORIYA WELL. VENT ALARMS CHECKED + AUDIBLE. KARONU BAG AT HOB. Addendum: 12/26/19 at 1152 by CAROLYNE MCCORMACK RT Amended: Links added.
--- NOTE | 2019-12-26 08:08 | NUR ---
school curriculum developer note patient in bed , with trach to vent setting as ordered, obtunded not follow any command at this time , with g tube feeding as orderedm keep hob elevated at all time, with Mcmahon cath to gravity, hd at this time, rt ig hl in place ,rt femoral cath in place,bed in lowest and locked position, will monitor,
--- NOTE | 2019-12-26 09:07 | NUR ---
TARE MAN [facility] , DR TSAI AT BEDSIDE NOTIFIED T 101.4 WBC 26.3 NOT RESPONSE TO ANY COMMAND
[2019-12-26] MEDS: CLOTRIMAZOLE 1% 15 GM TUBE TP SCH ×2 (09:12→17:12)
[2019-12-26] MEDS: LEVETIRACETAM SOL (5 ML) 100 MG/ML UDC GT SCH ×2 (09:50→21:24)
[2019-12-26] MEDS: FUROSEMIDE 40 MG/4 ML VIAL IV SCH (09:51)
[2019-12-26] MEDS: AMANTADINE HCL 100 MG CAPSULE PO SCH ×2 (09:51→17:10)
[2019-12-26] MEDS: SEVELAMER CARBONATE 800 MG POWD.PACK GT SCH ×3 (09:51→17:11)
[2019-12-26] MEDS: PANTOPRAZOLE 40 MG/PACK PACK GT SCH (09:51)
[2019-12-26] MEDS: HYDROCORTISONE SOD SUCCINATE 100 MG/2 ML VIAL IV SCH (09:51)
[2019-12-26] MEDS ORDERED: VANCOMYCIN 1 GM in IV D5W 250 ML IV ONE (10:00)
[2019-12-26 10:15] LABS: ABG BASE EXCESS 4.2 mmol/L; ABG OXYGEN SATURATION 96.8 % (92.0-98.5); ABG PCO2 38.3 mmHg (35.0-45.0); ABG PO2 88.6 mmHg (75.0-100.0); AaDO2 297.1 mmHg; COHb 2.2 % (0.5-1.5); MetHb 3.2 % (0.0-1.5); O2Hb 91.6 % (94.0-97.0); SITE, ABG Right Radial
--- NOTE | 2019-12-26 10:38 | NUR ---
rn picu note seen Emmanuel rn junior estimator aware that wbc 26.3 t 101.4 , HD COMPLETED REMOVED 2.5 L BP 122/82 R 108
[2019-12-26] MEDS: MEROPENEM 500 MG in IV NS 0.9% 50 ML IV SCH ×2 (10:45→21:24)
[2019-12-26] MEDS: ALBUMIN 25% 25 GM in PREMIX 1 EA IV SCH ×2 (12:19→17:11)
--- NOTE | 2019-12-26 13:00 | NUR ---
CELL FEED DEPARTMENT SUPERVISOR NOTE TURN REPOSITION , KEEP CLEAN DRY , ON G TUBE FEEDING ORDERED, WILL MONITOR
[2019-12-26] MEDS: SOD FERRIC GLUC 125 MG in IV NS 0.9% 100 ML IV SCH (14:05)
[2019-12-26] MEDS: NEPRO 1,000 ML BOTTLE GT PRN (14:22)
--- NOTE | 2019-12-26 15:00 | NUR ---
ORACLE DATABASE ADMINISTRATOR NOTE ENDORSED CARE TO J[facility]SON TAPIA
[2019-12-26] MEDS: LORAZEPAM INJ 2 MG/ML VIAL IV PRN (17:10)
--- NOTE | 2019-12-26 18:38 | NUR ---
DEPUTY CHIEF EXECUTIVE Closing Patient remains on FiO2 of 60% + PEEP 10 SPO2 100%. ABG done today, per Dr. Back, no changes Patient opens eyes to name. Does not follow command or track. SR/ST HR 90s-110, medications given as ordered PRN. trach site w/ small amount bleeding. PEG in place, feedings tolerated, no residual, stomach soft, placement verified via auscultation and aspiration. R IJ + R Groin HD cath intact. HD done today w/ 2,500mL output, tolerated well. Mcmahon 400mL out w/ sediment. 100.9F oral temp, Tylenol given
--- NOTE | 2019-12-26 19:45 | NUR ---
RN NOTES RECEIVED PATIENT ON TRACH SHILEY 8 CONNECTED TO VENT WITH SETTING AC22 TV550 EIF294% AND PEE [address] ON TELE MONITOR. NO ACUTE RESPIRATORY DISTRESS. WITH GTF NEPHRO @ 45 ML/HR TOLERATED WELL WITH HOB ELEVATED. PATIENT IV SITE ON RIJ INTACT AND PATENT AND RT. FEMORAL HD CATH ARE CLEAN AND DRY. . LOW GRADE FEVER NOTED. COOLING MEASURES/COLD COMPRESSED PROVIDED. TURN AND REPOSITION PATIENT COMFORTABLE. KEPT PT CLEAN AND DRY. WILL CONTINUE TO MONITOR.
[2019-12-27] VITALS (36 sets, daily range): BP systolic 120–172; BP diastolic 65–107
[2019-12-27] MEDS: ALBUMIN 25% 25 GM in PREMIX 1 EA IV SCH ×2 (00:16→05:44)
[2019-12-27 04:15] LABS: BASOPHILS # (AUTO) 0.1 /CMM (0.0-0.2); BASOPHILS % (AUTO) 0.4 % (0.0-2.0); EOSINOPHILS % (AUTO) 1.3 % (0.0-6.0); HEMATOCRIT 21 % (39-51); HEMOGLOBIN 7.1 g/dL (13.5-17.5); LYMPHOCYTES # (AUTO) 0.6 /CMM (0.8-4.8); LYMPHOCYTES % (AUTO) 2.1 % (20.0-44.0); MEAN CORPUSCULAR HGB CONC 34 g/dl (31.0-36.0); MEAN CORPUSCULAR VOLUME 118 fL (80-96); MONOCYTES # (AUTO) 1.4 /CMM (0.1-1.30); MONOCYTES % (AUTO) 4.9 % (2.0-12.0); NEUTROPHILS % (AUTO) 91.3 % (43.0-81.0); PLATELET COUNT (AUTO) 120 /CMM (150-450); WHITE BLOOD COUNT (AUTO) 27.4 K/uL (4.3-11.0)
[2019-12-27 04:37] LABS: CALCIUM, SERUM 9.1 mg/dL (8.5-10.1); MAGNESIUM 2.4 mg/dL (1.8-2.4); PHOSPHORUS 5.1 mg/dL (2.5-4.9); POTASSIUM 3.8 mmol/L (3.5-5.1)
[2019-12-27] MEDS: MODAFINIL 100 MG TABLET PO SCH ×2 (05:33→14:10)
--- NOTE | 2019-12-27 07:05 | NUR ---
RN NOTES NO CHANGES NOTED THROUGHOUT THE SHIFT. PATIENT SOMEWHAT TRACKING. NON VERBAL. TRACH AND VENT SETTING REMAINED THE SAME SETTING. NO ACUTE RESPIRATORY DISTRESS LOW GRADE FEVER TMAX 100 DEGREE PRESENT COOLING MEASURES PROVIDED. LAST CHECKED AT 0630 AM 98.6 DEGREE. FHARENHEIGHT. GTF TOLERATED WELL. DOMINGUEZ CATH KEPT IN PLACED AND KEPT OFF FROM THE FLOOR. BED BATH TOLERATED.. SKIN CARE PROVIDED. TURN AND REPOSITIONED Q2H AND PRN. ENDORSED CONTINUITY OF CARE TO AM NURSE.
--- NOTE | 2019-12-27 07:30 | NUR ---
Patient appears able to track w/ delay. Moderate amount of thick yellow secretions. Vent changes per Peleg: FiO2 change from 60->50% and PEEP 10 -> 5. cont to monitor patient for respiratory distress
[2019-12-27] MEDS: ACETYLCYSTEINE 10% SOLN 400 MG/4 ML VIAL NEB SCH ×3 (07:35→23:39)
[2019-12-27] MEDS: AMANTADINE HCL 100 MG CAPSULE PO SCH ×2 (08:31→18:02)
[2019-12-27] MEDS: CLOTRIMAZOLE 1% 15 GM TUBE TP SCH ×2 (08:32→18:02)
[2019-12-27] MEDS: LEVETIRACETAM SOL (5 ML) 100 MG/ML UDC GT SCH ×2 (08:32→21:07)
[2019-12-27] MEDS: SEVELAMER CARBONATE 800 MG POWD.PACK GT SCH ×3 (08:32→18:02)
[2019-12-27] MEDS: PANTOPRAZOLE 40 MG/PACK PACK GT SCH (08:32)
[2019-12-27] MEDS: HYDROCORTISONE SOD SUCCINATE 100 MG/2 ML VIAL IV SCH (08:32)
--- NOTE | 2019-12-27 10:32 | NUR ---
Pj CHANNEL DIRECTOR aware of: - no BM since 12/21, stated he will put in order - temp 99.8F - H&H drop ..dialysis patient
[2019-12-27] MEDS ORDERED: NEPRO 1,000 ML BOTTLE GT PRN (13:00)
[2019-12-27] MEDS ORDERED: VANCOMYCIN 1 GM in IV D5W 250 ML IV ONE (14:00)
[2019-12-27] MEDS: MEROPENEM 500 MG in IV NS 0.9% 50 ML IV SCH ×2 (14:09→21:07)
[2019-12-27] MEDS: LORAZEPAM INJ 2 MG/ML VIAL IV PRN (16:27)
--- NOTE | 2019-12-27 17:56 | NUR ---
Patient vomited after dialysis finished (around 2pm, large amount), then again about 3 hours later soon after cleaning (around 5pm, small amount), yellowish color. After the second time, Zofran given and feeding held. After cleaning, BP increased to SBP >160/ DBP >100 (see viatsigns). Ativan PRN given, with no effect. Metoprolol PRN given. will monitor for effect. temp 100F orally - tylenol given. No BM since 12/21, milk of magnesia given .. Addendum: 12/27/19 at 1843 by NATALY DAWKINS RN additionally after cleaning HR increased from baseline of 106 to >110
[2019-12-27] MEDS: METOPROLOL TARTRATE INJ 5 MG/5 ML AMPUL IVP PRN (18:01)
[2019-12-27] MEDS: ACETAMINOPHEN 325 MG TABLET PO PRN (18:01)
[2019-12-27] MEDS: SOD FERRIC GLUC 125 MG in IV NS 0.9% 100 ML IV SCH (18:02)
[2019-12-27 18:40] LABS: BILIRUBIN,URINE SMALL (NEGATIVE); BLOOD, URINE LARGE Ery/uL (NEGATIVE); COLOR,URINE YELLOW (YELLOW); LEUKOCYTE ESTERASE ,URINE MODERATE (NEGATIVE); NITRITE, URINE NEGATIVE (NEGATIVE); PROTEIN,URINE 100 mg/dl (NEGATIVE); UGLUCOSE NEGATIVE (NEGATIVE); UROBILINOGEN,URINE 0.2 EU/dL (0.2)
[2019-12-27 18:49] LABS: BACTERIA,URINE 1+ /HPF (None Seen); RBC,URINE 21-50 /HPF (0-2); SQUAMOUS EPITHELIAL CELL,UR Few /HPF (None Seen); WBC,URINE 21-50 /HPF (0-3)
[2019-12-27 18:50] LABS: YEAST,URINE Many /HPF (None Seen)
--- NOTE | 2019-12-27 19:20 | NUR ---
DIRECTOR OF STRATEGIC COMMUNICATIONS Closing see prior notes for shift events Patient on FiO2 of 50% + PEEP 5 SPO2 95%, no respiratory distress. Patient opens eyes spontaneously and appears to track with delay. After cleaning patient HR >110 , ativan and metoprolol given as ordered w/ some success. trach site w/ mod amount thick benjamin secretions, suctioning inside trach has moderate amount thick yellow secretions. PEG in place, patient vomitted x2 see prior note, no residual, stomach distended, large. visualized by Pj at bedside today. placement verified via auscultation and aspiration. feedings on hold and patient in high fowlers to prevent aspiration. R IJ + R Groin HD cath intact. HD done today w/ 3,500mL output. Mcmahon 200mL out yellow urine w/ sediment, sent for UA&UC as ordered. temp max 100F orally
--- NOTE | 2019-12-27 19:30 | NUR ---
RN NOTES RECEIVED PATIENT EYES OPEN , TRACKS ON AND OFF NON VERBAL PATIENT HAS TRACH SHILEY 8. AC 22 TV 550 FIO2 50% AND PEEP 5 SATURATION 98% TOLERATED WELL. ST WITH INVERTED T WAVE ON TELE MONITOR. IV SITE ON RIJ INTACT WITH GOOD BLOOD RETURN ON 2 PORT. TKO RT. FEMORAL HD CATH IS CLEAN AND DRY. DISTENDED ABDOMEN PRESENT. GT INTACT AND PATENT WITH 1150 CC YELLOWISH RESIDUAL. PATIENT HAD PREVIOUSLY EPISODE OF VOMITING X2 ZOFRAN WAS ADMINISTERED2 HOURS AGO AND GTF HELD AT THIS TIME. DOMINGUEZ CATH DRAINED WITH JOYCE COLOR URINE. KEPT OFF ON THE FLOOR. TURN AND REPOSITION PATIENT OFFLOADED EXT WITH PILLOWS. KEPT PT CLEAN AND DRY/ WILL CONTINUE TO MONITOR.
--- NOTE | 2019-12-27 19:57 | NUR ---
RT NOTE PT RECEIVED TRACHED WITH SHILEY 8 DCT CUFFED ON MECHANICAL VENTILATION. AMBU BAG @ HOB. VENT PLUGGED TO RED OUTLET. ALARMS ON AND AUDIBLE. BILATERAL CHEST RISE NOTED. PT RESPONDS TO SX WITH EYES OPEN. TRACH SECURED VIA TRACH TIE AND IS PATENT. NO RESP. DISTRESS NOTED AT THIS TIME. WILL CONTINUE TO MONITOR T/O SHIFT. Addendum: 12/27/19 at 1957 by SHER DAVIES RT Amended: Links added.
--- NOTE | 2019-12-27 22:00 | NUR ---
RN NOTES RECHECKED PATIENT GT RESIDUAL AFTER TO HOURS WITH 100 CC YELLOWISH WITH BROWN STAIN COLOR OUTPUT. KEPT PT HOB ELEVATED. GTF REMAINED HOLD TO RECHECKED AFTER 2HOURS PATIENT ABDOMEN WAS DISTENDED.
[2019-12-28] VITALS (46 sets, daily range): BP systolic 90–147; BP diastolic 51–91
--- NOTE | 2019-12-28 01:00 | NUR ---
RN NOTES RECHECKED PATIENT GT RESIDUAL WITH 600+CC OF YELLOWISH AND SOME BROWN PARTICLES PRESENT. INFORMED DR. DELONG WAITING TO CALL BACK.
[2019-12-28] MEDS ORDERED: METOCLOPRAMIDE HCL 10 MG/2 ML VIAL IV ONE (03:00)
--- NOTE | 2019-12-28 03:50 | NUR ---
RN NOTES PATIENT NOTED DESATING ON 88% AND ,80 % AT SOME POINT FIO2 INCREASE TO 60% BY RT. SATURATION BACK TO 96%
[2019-12-28 04:17] LABS: BASOPHILS # (AUTO) 0.1 /CMM (0.0-0.2); BASOPHILS % (AUTO) 0.3 % (0.0-2.0); EOSINOPHILS % (AUTO) 1.8 % (0.0-6.0); HEMATOCRIT 23 % (39-51); HEMOGLOBIN 7.3 g/dL (13.5-17.5); LYMPHOCYTES # (AUTO) 0.6 /CMM (0.8-4.8); LYMPHOCYTES % (AUTO) 2.1 % (20.0-44.0); MEAN CORPUSCULAR HGB CONC 32 g/dl (31.0-36.0); MEAN CORPUSCULAR VOLUME 119 fL (80-96); MONOCYTES # (AUTO) 1.2 /CMM (0.1-1.30); MONOCYTES % (AUTO) 3.9 % (2.0-12.0); NEUTROPHILS # (AUTO) 28.2 /CMM (1.8-8.9); NEUTROPHILS % (AUTO) 91.9 % (43.0-81.0); PLATELET COUNT (AUTO) 161 /CMM (150-450)
[2019-12-28 04:27] LABS: CALCIUM, SERUM 9.4 mg/dL (8.5-10.1); CREATININE 3.7 mg/dL (0.6-1.3); MAGNESIUM 2.5 mg/dL (1.8-2.4); PHOSPHORUS 4.8 mg/dL (2.5-4.9); POTASSIUM 3.5 mmol/L (3.5-5.1)
[2019-12-28 04:35] LABS: RED BLOOD CELL COUNT(AUTO) 1.89 MIL/uL (4.5-6.0); WHITE BLOOD COUNT (AUTO) 30.7 K/uL (4.3-11.0)
[2019-12-28 05:27] LABS: LYMPHOCYTES % (MANUAL) 3 % (16-48); MONOCYTES % (MANUAL) 3 % (0-11.0); NEUTROPHILS % (MANUAL) 94 (42-76)
[2019-12-28] MEDS ORDERED: VANCOMYCIN 500 MG in IV D5W 100 ML IV PRN (06:00)
[2019-12-28] MEDS: MODAFINIL 100 MG TABLET PO SCH ×2 (06:40→12:18)
--- NOTE | 2019-12-28 07:00 | NUR ---
RN NOTES PATIENT CONTINUE TO MONITOR TRACH AND VENT SETTING TOLERATED WELL. FIO2 60% KEPT SATURATION 96%. TMAX 99.3 PRESENT. PATIENT IS MORE RESPONSIVE AND TRACKS MORE. ST ON TELE MONITOR. RIJ REMAINED INTACT AND PATENT WITH GOOD BLOOD RETURN. RIGHT FEMORAL HD CATH WITH CLEAN DRESSING. GTF KEPT HOLD RESIDUAL CONTINUE TO CHECKED. DOMINGUEZ CATH KEPT OFF FROM THE FLOOR DRAINED VIA GRAVITY.KEPT PT CLEAN AND DRY. ENDORSED CONTINUITY OF CARE TO AM NURSE.
--- NOTE | 2019-12-28 07:05 | NUR ---
RN NOTES RECEIVED PATIENT ON BED, TRACH/VENT DEPENDENT, OPENS EYES TO VERBAL STIMULI, ABLE TO TRACH, NON VERBAL, TOLERATING CURRENT VENT SETTING WELL, ON TELE ST HR IN 100'S, ST WITH INVERTED T WAVES, IV SITE ON RIJ INTACT WITH GOOD BLOOD RETURN ON 2 PORT. TKO RT. FEMORAL HD CATH IS CLEAN AND DRY. DISTENDED ABDOMEN PRESENT. GT OFF AT HIS TIME DUE TO HIGH RESIDUAL , CONTINUE TO MONITOR . DOMINGUEZ CATH DRAINED WITH JOYCE COLOR URINE. SR UP x3, CALL LIGHT WITHIN EASY REACH, BED LOCKED AND IN LOWEST POSITION, TURN AND REPOSITION PATIENT OFFLOADED EXT WITH PILLOWS. KEPT PT CLEAN AND DRY. CONTINUE TO MONITOR.
[2019-12-28] MEDS: ACETYLCYSTEINE 10% SOLN 400 MG/4 ML VIAL NEB SCH ×3 (07:35→23:18)
[2019-12-28] MEDS: SEVELAMER CARBONATE 800 MG POWD.PACK GT SCH ×3 (08:21→16:24)
[2019-12-28] MEDS: HYDROCORTISONE SOD SUCCINATE 100 MG/2 ML VIAL IV SCH (08:22)
[2019-12-28] MEDS: LEVETIRACETAM SOL (5 ML) 100 MG/ML UDC GT SCH ×2 (08:22→20:51)
[2019-12-28] MEDS: PANTOPRAZOLE 40 MG/PACK PACK GT SCH (08:22)
[2019-12-28] MEDS: AMANTADINE HCL 100 MG CAPSULE PO SCH ×2 (08:22→16:24)
[2019-12-28] MEDS: CLOTRIMAZOLE 1% 15 GM TUBE TP SCH ×2 (08:23→16:24)
--- NOTE | 2019-12-28 10:09 | NUR ---
RN NOTES PT IS RECEIVING HD AT THIS TIME.
[2019-12-28] MEDS: MEROPENEM 500 MG in IV NS 0.9% 50 ML IV SCH ×2 (10:22→21:01)
[2019-12-28] MEDS ORDERED: BISACODYL SUPP (10 MG) 10 MG/SUPP.RECT SUPP.RECT RC PRN (11:00)
[2019-12-28] MEDS ORDERED: BISACODYL (5 MG) 5 MG TABLET.DR PO PRN (11:00)
--- NOTE | 2019-12-28 11:00 | NUR ---
RN NOTES CONNOR ACTING MANAGER NOTIFED , REGARDING HIGH TF RESIDUAL .
[2019-12-28] MEDS: SOD FERRIC GLUC 125 MG in IV NS 0.9% 100 ML IV SCH (15:01)
[2019-12-28] MEDS: ACETAMINOPHEN 325 MG TABLET PO PRN ×2 (15:08→21:09)
--- NOTE | 2019-12-28 18:00 | NUR ---
RN NOTES PATIENT CONTINUE TO MONITOR TRACH AND VENT SETTING TOLERATED WELL. FIO2 50% KEPT SATURATION 96%. PATIENT IS MORE RESPONSIVE AND TRACKS MORE. ST ON TELE MONITOR. RIJ REMAINED INTACT AND PATENT WITH GOOD BLOOD RETURN. RIGHT FEMORAL HD CATH WITH CLEAN DRESSING. KEPT PT CLEAN AND DRY. WILL ENDORSED TO PM NURSE FOR CONTINUITY OF CARE .
--- NOTE | 2019-12-28 19:18 | NUR ---
RN NOTE PATIENT IN BED IN SEMI GLEZ'S POSITION. PT IS NON VERBAL BUT OPENS EYES AND CAN FOLLOW SIMPLE COMMANDS. WITH TRACH AND VENT AND TOLERATING SETTINGS WELL. TRACH MID LINE AND IN PLACE, RESPIRATIONS EVEN AND UNLABORED. SR ON THE MONITOR. VITAL SIGNS STABLE VIA BED SIDE MONITOR. WITH RIGHT INTERNAL JUGULAR TRIPLE TLC. FLUSHED. ONLY ONE PORT WITH GOOD VENOUS RETURN. DOMINGUEZ CATHETER PATENT AND IN PLACE DRAINING MINIMAL AMOUNT OF URINE. RIGHT FEMORAL HD CATH INTACT. NPO STATUS MAINTAINED. PT WITH SMALL BOWEL FOLLOW THROUGH IN AM. CALL LIGHT WITHIN REACH, SAFETY MEASURES IN PLACE, WILL MONITOR PATIENT.
--- NOTE | 2019-12-28 20:00 | NUR ---
RN NOTE VITAL SIGNS TAKEN. WITH AX TEMP OF 100.1. COOLING MEASURES APPLIED. WILL ADMINISTER ACETAMINOPHEN PRN ORDERED. WILL MONITOR PATIENT.
--- NOTE | 2019-12-28 21:23 | NUR ---
RT NOTE PT RECEIVED TRACHED ON MECHANICAL VENTILATION. PT AWAKE. SHILEY [address] CUFF INFLATED. SUTURES STILL INTACT. SX DONE, TRACH SECURED AND PATENT. ALARMS ON AND AUDIBLE. NO RESP. DISTRESS NOTED AT THIS TIME. WILL CONTINUE TO MONITOR T/O SHIFT. Addendum: 12/28/19 at 2124 by SHER DAVIES RT Amended: Links added.
[2019-12-28] MEDS: LORAZEPAM INJ 2 MG/ML VIAL IV PRN (22:26)
[2019-12-29] VITALS (50 sets, daily range): BP systolic 92–155; BP diastolic 54–99
--- NOTE | 2019-12-29 | NUR ---
RN NOTE AX TEMP AT THIS TIME 98.4. WILL CONTINUE TO MONITOR.
--- NOTE | 2019-12-29 02:00 | NUR ---
RN NOTE BED BATH AND AM CARE COMPLETED. PT TOLERATED WELL. VITAL SIGNS STABLE VIA BEDSIDE MONITOR. WILL CONTINUE TO MONITOR PATIENT.
[2019-12-29] MEDS: MORPHINE SULFATE INJ 2 MG/ML DISP.SYRIN IV PRN (03:09)
--- NOTE | 2019-12-29 03:45 | NUR ---
RN NOTE WITH TEMPERATURE OF AX 101.4. TYLENOL ADMINISTERED. COOLING MEASURES APPLIED. WILL CONTINUE TO MONITOR.
[2019-12-29] MEDS: ACETAMINOPHEN 325 MG TABLET PO PRN ×3 (03:46→14:36)
--- NOTE | 2019-12-29 04:00 | NUR ---
RN NOTE PT NOTED WITH SMALL BOWEL MOVEMENT (SMEAR). JACE CARE RENDERED.
[2019-12-29 04:24] LABS: BASOPHILS # (AUTO) 0.1 /CMM (0.0-0.2); BASOPHILS % (AUTO) 0.5 % (0.0-2.0); EOSINOPHILS % (AUTO) 2.1 % (0.0-6.0); LYMPHOCYTES # (AUTO) 0.8 /CMM (0.8-4.8); LYMPHOCYTES % (AUTO) 2.7 % (20.0-44.0); MEAN CORPUSCULAR HGB CONC 32 g/dl (31.0-36.0); MEAN CORPUSCULAR VOLUME 121 fL (80-96); MONOCYTES # (AUTO) 1.2 /CMM (0.1-1.30); NEUTROPHILS # (AUTO) 26.7 /CMM (1.8-8.9); NEUTROPHILS % (AUTO) 90.7 % (43.0-81.0); PLATELET COUNT (AUTO) 179 /CMM (150-450); WHITE BLOOD COUNT (AUTO) 29.4 K/uL (4.3-11.0)
[2019-12-29 04:39] LABS: CALCIUM, SERUM 9.3 mg/dL (8.5-10.1); CREATININE 3.8 mg/dL (0.6-1.3); MAGNESIUM 2.5 mg/dL (1.8-2.4); POTASSIUM 3.6 mmol/L (3.5-5.1)
[2019-12-29 04:43] LABS: RED BLOOD CELL COUNT(AUTO) 1.68 MIL/uL (4.5-6.0)
[2019-12-29 04:44] LABS: HEMATOCRIT 20 % (39-51); HEMOGLOBIN 6.5 g/dL (13.5-17.5)
--- NOTE | 2019-12-29 04:47 | NUR ---
RN NOTE RECEIVED ALERT FOR HGB 6.5. PAGED DR. DELONG ( SENIOR MERCHANDISER).
--- NOTE | 2019-12-29 05:35 | NUR ---
RN NOTE DR. DELONG RETURNED CALL. WITH ORDER TO TRANSFUSE 1 UNIT OF PRBC. ALSO NOTIFIED MD OF TACHYCARDIA 100-118 THROUGHOUT SHIFT DESPITE ADMINISTRATION OF ANALGESICS. ALSO NOTIFIED THAT PT WILL BE HAVING SMALL BOWEL FOLLOW THROUGH FOR SMALL BOWEL OBSTRUCTION AND IS NPO. NO NEW ORDERS FOR ELEVATED HEART RATE. OKAY TO HOLD PROVOGIL FOR 0600. ORDERS NOTED AND CARRIED OUT. Addendum: 12/29/19 at 0545 by PAT HYDE RN NOTED WITH ALREADY SIGNED CONSENT FOR BLOOD TRANSFUSION IN CHART.
[2019-12-29] MEDS: MODAFINIL 100 MG TABLET PO SCH ×2 (05:45→12:31)
[2019-12-29 05:57] LABS: EOSINOPHILS % (MANUAL) 3 % (0-4); LYMPHOCYTES % (MANUAL) 3 % (16-48); MONOCYTES % (MANUAL) 5 % (0-11.0); NEUTROPHILS % (MANUAL) 89 (42-76)
--- NOTE | 2019-12-29 06:00 | NUR ---
RN NOTE TEMPERATURE RECHECKED. 98.7 AX. WILL CONTINUE TO MONITOR. AWAITING BLOOD FROM BLOOD BANK.
--- NOTE | 2019-12-29 06:19 | NUR ---
RN NOTE CLARIFICATION OF ORDER: GIVE 1 UNIT OF PRBC WITH HEMODILAYSIS TODAY.
--- NOTE | 2019-12-29 07:03 | NUR ---
RN NOTE PATIENT IN BED IN SEMI GLEZ'S POSITION. NON VERBAL BUT OPENS EYES. WITH TRACH AND VENT AND TOLERATING SETTINGS WELL. RESPIRATIONS EVEN AND UNLABORED. SR ON THE BED SIDE MONITOR. VITAL SIGNS STABLE.ALL LINES FLUSHED WITHOUT COMPLICATIONS AT SITE. TLC WITH ONLY ONE PORT WITH GOOD VENOUS RETURN. DOMINGUEZ CATHETER PATENT AND IN PLACE DRAINING URINE. RIGHT FEMORAL HD CATH INTACT. PT WITH SMALL BOWEL FOLLOW THROUGH IN AM. CALL LIGHT WITHIN REACH, SAFETY MEASURES IN PLACE, ENDORSED TO MORNING RN FOR CONTINUATION OF CARE.
--- NOTE | 2019-12-29 07:05 | NUR ---
RN NOTES RECEIVED PATIENT ON BED, TRACH/VENT DEPENDENT, OPENS EYES TO VERBAL STIMULI, ABLE TO TRACH, NON VERBAL, TOLERATING CURRENT VENT SETTING WELL, ON TELE ST HR IN 110'S, ST WITH INVERTED T WAVES, IV SITE ON R IJ INTACT WITH GOOD BLOOD RETURN ON 2 PORT. TKO RT. FEMORAL HD CATH IS CLEAN AND DRY. DISTENDED ABDOMEN PRESENT. GT CLAMPED AT THIS TIME, DOMINGUEZ CATH DRAINING , WITH JOYCE COLOR URINE. SR UP x3, CALL LIGHT WITHIN EASY REACH, BED LOCKED AND IN LOWEST POSITION, TURN AND REPOSITION PATIENT OFFLOADED EXT WITH PILLOWS. KEPT PT CLEAN AND DRY. CONTINUE TO MONITOR.
[2019-12-29] MEDS: ACETYLCYSTEINE 10% SOLN 400 MG/4 ML VIAL NEB SCH ×2 (07:35→23:25)
--- NOTE | 2019-12-29 07:56 | NUR ---
WOUND CARE CONSULT: PT PRESENTS WITH RASH AND PEELING SKIN TO GLUTEAL CREASE, INNER BUTTOCKS AND INNER THIGHS WITH INCONTINENCE ASSOCIATED OPEN SKIN TO LEFT LOWER BUTTOCK WITH EDEMA, NOT ON A BONY PROMINENCE. RECOMMENDATIONS MADE FOR SKIN CARE AND PROTECTION. DISCUSSED WITH NURSING STAFF. PT IS ON DOMINGUEZ ISOFLEX LOW AIRLOSS BED. PT NOTED TO HAVE MULTIPLE CO-MORIBIDITIES INCLUDING ACUTE RENAL FAILURE (ON DAILY HEMODIALYSIS), RESPIRATORY FAILURE WITH PNEUMONIA AND SEPSIS. MD IN AGREEMENT WITH PLAN OF CARE. Addendum: 12/29/19 at 0801 by JOSHUA HA WNDNU Amended: Links added.
[2019-12-29] MEDS: PANTOPRAZOLE 40 MG/PACK PACK GT SCH (08:27)
[2019-12-29] MEDS: LEVETIRACETAM SOL (5 ML) 100 MG/ML UDC GT SCH ×2 (08:27→21:36)
[2019-12-29] MEDS: SEVELAMER CARBONATE 800 MG POWD.PACK GT SCH ×3 (08:27→17:38)
[2019-12-29] MEDS: HYDROCORTISONE SOD SUCCINATE 100 MG/2 ML VIAL IV SCH (08:27)
[2019-12-29] MEDS: AMANTADINE HCL 100 MG CAPSULE PO SCH ×2 (08:28→17:38)
[2019-12-29] MEDS ORDERED: DIATR MEGLU/DIATRIZOATE SODIUM 120 ML BOTTLE (GASTROGRAPHIN) ONE (09:57)
[2019-12-29] MEDS: MEROPENEM 500 MG in IV NS 0.9% 50 ML IV SCH (10:25)
[2019-12-29] MEDS: CLOTRIMAZOLE/BETAMETASONE DIPROPIONATE 15 GM TUBE TP SCH ×2 (11:18→21:36)
[2019-12-29] MEDS ORDERED: CEFEPIME 2 GM in IV D5W 100 ML IV SCH (14:00)
--- NOTE | 2019-12-29 14:08 | NUR ---
RN NOTES PT RECEIVING HD AT THIS TIME, AND ONE UNIT OF BLOOD TRANSFUSION WITH HD .
--- NOTE | 2019-12-29 16:00 | NUR ---
RN NOTES T=102.7 , TYLENOL GIVEN, PT PLACED ON COOLING BLANKET. BIOSTATISTICS MANAGER NOTIFED .
[2019-12-29] MEDS: SOD FERRIC GLUC 125 MG in IV NS 0.9% 100 ML IV SCH (16:52)
--- NOTE | 2019-12-29 18:29 | NUR ---
RN NOTES T=101.9 AT THIS TIME, ON COOLING BLANKET, OPENS EYES TO VERBAL STIMULI, TOLERATING VENT SETTING WELL, TRACH CARE DONE, SR UP x3, CALL LIGHT WITHIN EASY REACH, BED LOCKED AND IN LOWEST POSITION, WILL ENDORSE TO SENIOR PORTFOLIO MANAGER NURSE FOR CONTINUITY OF CARE .
--- NOTE | 2019-12-29 19:45 | NUR ---
ICU/BACKEND PYTHON DEVELOPER RECEIVED REPORT FROM DAY NURSE. SEE FLOWSHEET FOR ASSESSMENT,SKIN ISSUES ARE ADDRESSED ON FLOWSHEET ALONG WITH INTERVENTIONS TO EACH. PT IS NONVERBAL, OPENS EYES WILL SOMETIMES TRACK. PT IS WITH TRACH, TOLERATING CURRENT VENT SETTINGS WELL WITH SATURATION AT 97-100%. PT WAS TURN AND REPOSITION FOR COMFORT AND CARE. WILL CONTINUE TO MONITOR THIS PT, NO ACUTE DISTRESS SEEN.
--- NOTE | 2019-12-29 20:03 | NUR ---
RT NOTE PT RECEIVED TRACHED WITH SHILEY 8 DCT. PT AWAKE. PT CURRENTLY ON FIO2 OF 70% DUE TO DESATURATION. WILL CONTINUE TO MONITOR CLOSELY. ALARMS ON AND AUDIBLE. NO DISTRESS NOTED. VENT PLUGGED TO RED OUTLET. Addendum: 12/29/19 at 2005 by SHER DAVIES RT Amended: Links added.
--- NOTE | 2019-12-29 20:30 | NUR ---
ICU/WOMEN'S LACROSSE COACH PT'S TEMP IS 102.7 RECTAL, PT IS COOLING BLANKET. ALSO PACKED PT WITH ICU TO HELP REDUCE TEMP. WILL MONITOR THIS PT.
--- NOTE | 2019-12-29 20:35 | NUR ---
ICU/IDENTIFICATION CLERK PT CONTINUE TO HAVE SMALL BOWEL STUDY FROM [facility] TODAY. AWAIT FOR ANY RESULTS FOR A CONTINUATION FROM [facility].
--- NOTE | 2019-12-29 22:20 | NUR ---
ICU/HAND EDGER PT WAS GIVEN ORAL CARE AT THIS TIME , ALONG WITH PM CARE. PT TOLERATED THIS WELL. PT REMAINS ON CURRENT VENT SETTINGS WITH SATURATION AT 94-96%. WILL CONTINUE TO MONITOR THIS PT AND HIS SATURATION. PT WAS TURNED AND REPOSITIONED FOR COMFORT AND CARE, NO ACUTE DISTRESS SEEN AT THIS TIME.
[2019-12-30] VITALS (25 sets, daily range): BP systolic 92–134; BP diastolic 50–90
--- NOTE | 2019-12-30 00:45 | NUR ---
ICU/PAPER CLEANER PT IS HAVING A CONTINUE TO HAVE SMALL BOWEL STUDY FROM [facility]. AWAIT FOR ANY RESULTS FOR A CONTINUATION FROM [facility].
--- NOTE | 2019-12-30 01:15 | NUR ---
ICU/CERAMIST PT'S TEMP IS 101.0 AT THIS TIME, COOLING MEASURES ARE IN PLACE. WILL CONTINUE TO MONITOR THIS PT AND HIS TEMP.
--- NOTE | 2019-12-30 02:05 | NUR ---
ICU/RESIDENCE COUNSELOR PT WAS GIVEN ORAL CARE AT THIS TIME , ALONG WITH AM CARE. PT TOLERATED THIS WELL. PT REMAINS ON CURRENT VENT SETTINGS WITH SATURATION AT 96%. WILL CONTINUE TO MONITOR THIS PT AND HIS SATURATION. PT WAS TURNED AND REPOSITIONED FOR COMFORT AND CARE, NO ACUTE DISTRESS SEEN AT THIS TIME.
--- NOTE | 2019-12-30 03:45 | NUR ---
ICU/CONTACT ACID PLANT OPERATOR SMALL BOWEL STUDY WAS RESULTED WITH IT BEING THAT PT STILL HAD SMALL BOWEL OBSTRUCTION, NEEDS CT WHICH WOULD BE BETTER.
--- NOTE | 2019-12-30 04:20 | NUR ---
ICU/WILDLIFE REFUGE MANAGER PT WAS GIVEN AM CARE EARLIER, ICE BATH WAS GIVEN AT THIS TIME, TEMP IS NOW 99.0. WILL CONTINUE TO MONITOR THIS PT.
[2019-12-30 04:32] LABS: BASOPHILS # (AUTO) 0.1 /CMM (0.0-0.2); BASOPHILS % (AUTO) 0.4 % (0.0-2.0); EOSINOPHILS % (AUTO) 1.7 % (0.0-6.0); HEMATOCRIT 24 % (39-51); HEMOGLOBIN 7.6 g/dL (13.5-17.5); LYMPHOCYTES # (AUTO) 0.8 /CMM (0.8-4.8); LYMPHOCYTES % (AUTO) 2.6 % (20.0-44.0); MEAN CORPUSCULAR HGB CONC 32 g/dl (31.0-36.0); MEAN CORPUSCULAR VOLUME 116 fL (80-96); MONOCYTES # (AUTO) 1.3 /CMM (0.1-1.30); NEUTROPHILS # (AUTO) 28.9 /CMM (1.8-8.9); NEUTROPHILS % (AUTO) 91.3 % (43.0-81.0); PLATELET COUNT (AUTO) 207 /CMM (150-450); RED BLOOD CELL COUNT(AUTO) 2.05 MIL/uL (4.5-6.0)
[2019-12-30 04:42] LABS: CALCIUM, SERUM 9.5 mg/dL (8.5-10.1); CREATININE 4.2 mg/dL (0.6-1.3); MAGNESIUM 2.6 mg/dL (1.8-2.4); PHOSPHORUS 5.5 mg/dL (2.5-4.9); POTASSIUM 3.7 mmol/L (3.5-5.1)
[2019-12-30] MEDS: CLOTRIMAZOLE/BETAMETASONE DIPROPIONATE 15 GM TUBE TP SCH ×3 (05:20→21:13)
[2019-12-30 05:26] LABS: WHITE BLOOD COUNT (AUTO) 31.7 K/uL (4.3-11.0)
--- NOTE | 2019-12-30 05:30 | NUR ---
ICU/OBIEE CONSULTANT PT'S AM LABS WBC 31.7 & BUN 81, PT IS CURRENTLY ON ANTIBIOTICS & ALONG WITH DAILY HD. MADE AWARE WITH NO NEW ORDERS.
[2019-12-30] MEDS: MODAFINIL 100 MG TABLET PO SCH ×2 (05:59→12:17)
[2019-12-30 06:36] LABS: LYMPHOCYTES % (MANUAL) 6 % (16-48); MONOCYTES % (MANUAL) 4 % (0-11.0); NEUTROPHILS % (MANUAL) 90 (42-76)
[2019-12-30] MEDS: ACETYLCYSTEINE 10% SOLN 400 MG/4 ML VIAL NEB SCH ×2 (07:35→15:14)
[2019-12-30] MEDS: LEVETIRACETAM SOL (5 ML) 100 MG/ML UDC GT SCH ×2 (08:11→21:13)
[2019-12-30] MEDS: PANTOPRAZOLE 40 MG/PACK PACK GT SCH (08:11)
[2019-12-30] MEDS: AMANTADINE HCL 100 MG CAPSULE PO SCH ×2 (08:11→16:33)
[2019-12-30] MEDS: HYDROCORTISONE SOD SUCCINATE 100 MG/2 ML VIAL IV SCH (08:11)
[2019-12-30] MEDS: SEVELAMER CARBONATE 800 MG POWD.PACK GT SCH ×3 (08:11→16:32)
--- NOTE | 2019-12-30 09:12 | NUR ---
RN NOTE 0715: Received patient awake, able to answer yes/no question by nodding. With trache to vent, on FIO2 70%, will continue to monitor sat. Noted with moderate amount of yellowish secretions when suctioned. Noted jaundice. Abdomen still distended from SBO. Tried placing on suction and able to gather large amount of residual, informed [place] FALSEWORK BUILDER and obtained order to place GT on LIS. RIJ TLC intact. Right fem HD cath intact. Mcmahon cath intact, noted with minimal UOP. 0830: HD nurse at [facility] for HD. 0850: S/E by Dr. Morrow, no new order at this time.
--- NOTE | 2019-12-30 10:48 | NUR ---
RN NOTE 1010: S/E by James BIRD, with order to do CT abd today. HD nurse reported 1L out, tolerated HD today. S/E by ID, with order to change Mcmahon cath today and said no intervention for Juanita urine for now. 1045: Clarified with James BIRD if stil want KUB stat even with CT abd, said yes, following up with radio.
--- NOTE | 2019-12-30 11:12 | NUR ---
RN NOTE S/E by Dr. Beena MD turned FIO2 down to 40%, will monitor.
--- NOTE | 2019-12-30 11:55 | NUR ---
RN NOTE Back from CT, patient tolerated. S/E by Dr. Orr.
[2019-12-30] MEDS: ALBUTEROL FS 2.5 MG/3 ML VIAL.NEB NEB SCH ×2 (13:30→20:17)
[2019-12-30] MEDS: IPRATROPIUM NEB FS 0.5 MG/2.5 ML AMPUL.NEB NEB SCH ×2 (13:30→20:17)
[2019-12-30] MEDS: SOD FERRIC GLUC 125 MG in IV NS 0.9% 100 ML IV SCH (14:57)
[2019-12-30] MEDS: CEFEPIME 2 GM in IV D5W 100 ML IV SCH (14:59)
--- NOTE | 2019-12-30 15:15 | NUR ---
RN NOTE Changed Mcmahon cath today, tolerated well.
--- NOTE | 2019-12-30 19:45 | NUR ---
ICU/ARTIFICIAL MARBLE WORKER RECEIVED REPORT FROM DAY NURSE. SEE FLOWSHEET FOR ASSESSMENT,SKIN ISSUES ARE ADDRESSED ON FLOWSHEET ALONG WITH INTERVENTIONS TO EACH. PT IS NONVERBAL, OPENS EYES WILL SOMETIMES TRACK. PT IS WITH TRACH, TOLERATING CURRENT VENT SETTINGS WELL WITH SATURATION AT 97-100%. PT WAS TURN AND REPOSITION FOR COMFORT AND CARE. WILL CONTINUE TO MONITOR THIS PT, NO ACUTE DISTRESS SEEN.
--- NOTE | 2019-12-30 21:00 | NUR ---
ICU/HEAVY EQUIPMENT RENTAL MANAGER PT CONTINUES TO HAVE HIS G/TUBE HOOKED UP TO LOW SUCTION FROM DAY DAY SHIFT. PT HAD SMALL BOWEL STUDY WHICH SHOWED THAT THERE WAS AN OBSTRUCTION AND FREE AIR TOO. WILL CONTINUE TO MONITOR THIS PT.
--- NOTE | 2019-12-30 22:30 | NUR ---
ICU/BENCH MOLDER PT WAS GIVEN ORAL CARE AT THIS TIME , ALONG WITH PM CARE. PT TOLERATED THIS WELL. PT REMAINS ON CURRENT VENT SETTINGS WITH SATURATION AT 98%. WILL CONTINUE TO MONITOR THIS PT AND HIS SATURATION. PT WAS TURNED AND REPOSITIONED FOR COMFORT AND CARE, NO ACUTE DISTRESS SEEN AT THIS TIME.
[2019-12-31] VITALS (41 sets, daily range): BP systolic 95–148; BP diastolic 56–94
--- NOTE | 2019-12-31 00:10 | NUR ---
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 WILL CONTINUE TO MONITOR THIS PT. NO ACUTE DISTRESS SEEN AT THIS TIME.
[2019-12-31] MEDS: IPRATROPIUM NEB FS 0.5 MG/2.5 ML AMPUL.NEB NEB SCH ×4 (02:16→19:52)
[2019-12-31] MEDS: ALBUTEROL FS 2.5 MG/3 ML VIAL.NEB NEB SCH ×4 (02:16→19:52)
[2019-12-31] MEDS: ACETYLCYSTEINE 10% SOLN 400 MG/4 ML VIAL NEB SCH ×4 (02:16→23:48)
--- NOTE | 2019-12-31 02:25 | NUR ---
RT NOTE Pt rec'd trached via Shiley 8 DCT on mech vent on AC mode. Pt shows no signs of resp distress or sob. Trach is patent and secured. Pt sx'd for thick small amt of pale yellow secretions. Alarms are set and audible. Vent plugged into red outlet. Ambu bag and emergency spare trach bedside. Will continue to monitor closely. Addendum: 12/31/19 at 0227 by JORGE MCKEON RT Amended: Links added.
--- NOTE | 2019-12-31 02:30 | NUR ---
ICU/NIGHT CLEANER PT WAS GIVEN ORAL CARE AT THIS TIME , ALONG WITH AM CARE. PT TOLERATED THIS WELL. PT REMAINS ON CURRENT VENT SETTINGS WITH SATURATION AT 98%. WILL CONTINUE TO MONITOR THIS PT AND HIS SATURATION. PT WAS TURNED AND REPOSITIONED FOR COMFORT AND CARE, NO ACUTE DISTRESS SEEN AT THIS TIME.
--- NOTE | 2019-12-31 03:45 | NUR ---
ICU/LATHE SET UP OPERATOR AM LABS WERE DONE AWAIT FOR ANY ABNORMAL RESULTS.
[2019-12-31 04:40] LABS: BASOPHILS # (AUTO) 0.1 /CMM (0.0-0.2); BASOPHILS % (AUTO) 0.3 % (0.0-2.0); EOSINOPHILS % (AUTO) 4.8 % (0.0-6.0); HEMATOCRIT 22 % (39-51); HEMOGLOBIN 7.1 g/dL (13.5-17.5); LYMPHOCYTES # (AUTO) 1.1 /CMM (0.8-4.8); LYMPHOCYTES % (AUTO) 4.6 % (20.0-44.0); MEAN CORPUSCULAR HGB CONC 32 g/dl (31.0-36.0); MEAN CORPUSCULAR VOLUME 117 fL (80-96); MONOCYTES # (AUTO) 1.1 /CMM (0.1-1.30); MONOCYTES % (AUTO) 4.9 % (2.0-12.0); NEUTROPHILS # (AUTO) 19.7 /CMM (1.8-8.9); NEUTROPHILS % (AUTO) 85.4 % (43.0-81.0); PLATELET COUNT (AUTO) 195 /CMM (150-450)
[2019-12-31 04:45] LABS: RED BLOOD CELL COUNT(AUTO) 1.88 MIL/uL (4.5-6.0)
[2019-12-31 04:51] LABS: CALCIUM, SERUM 9.5 mg/dL (8.5-10.1); CREATININE 4.2 mg/dL (0.6-1.3); MAGNESIUM 2.8 mg/dL (1.8-2.4); PHOSPHORUS 5.6 mg/dL (2.5-4.9); POTASSIUM 4.1 mmol/L (3.5-5.1)
[2019-12-31 05:12] LABS: LYMPHOCYTES % (MANUAL) 5 % (16-48); MONOCYTES % (MANUAL) 5 % (0-11.0); NEUTROPHILS % (MANUAL) 90 (42-76)
--- NOTE | 2019-12-31 05:30 | NUR ---
ICU/SAP PORTAL CONSULTANT PT IS MORE AWAKE IS ABLE TO MAKE SIMPLE COMMANDS KNOW. PT REQUESTED ICE CHIPS, THIS WAS GIVEN. PT TOLERATED THIS WELL. PT IS ABLE TO MORE HANDS AND MAKE SMALL MOVEMENT.
[2019-12-31] MEDS: MODAFINIL 100 MG TABLET PO SCH ×2 (05:58→12:51)
[2019-12-31] MEDS: CLOTRIMAZOLE/BETAMETASONE DIPROPIONATE 15 GM TUBE TP SCH ×3 (05:58→21:50)
--- NOTE | 2019-12-31 07:10 | NUR ---
RN NOTES RECEIVED PATIENT ON BED, TRACH/VENT DEPENDENT, OPENS EYES TO VERBAL STIMULI, ABLE TO TRACH, AND FOLLOWS SIMPLE COMMAND NON VERBAL, TOLERATING CURRENT VENT SETTING WELL, ON TELE ST HR IN 120'S, FEMORAL HD CATH IS CLEAN AND DRY. GT IS ATTACHED TO LIS , WITH DARK GREENISH STOMACH DRAINAGE , AT THIS TIME, DOMINGUEZ CATH DRAINING , WITH SMALL AMOUNT OF JOYCE COLOR URINE. SR UP x3, CALL LIGHT WITHIN EASY REACH, BED LOCKED AND IN LOWEST POSITION, TURN AND REPOSITION , PATIENT OFFLOADED EXT WITH PILLOWS. KEPT PT CLEAN AND DRY. CONTINUE TO MONITOR.
--- NOTE | 2019-12-31 08:19 | NUR ---
RN NOTES PT IS RECEIVING HD AT THIS TIME .
[2019-12-31] MEDS: SEVELAMER CARBONATE 800 MG POWD.PACK GT SCH ×3 (09:00→16:49)
[2019-12-31] MEDS: PANTOPRAZOLE 40 MG/PACK PACK GT SCH (09:18)
[2019-12-31] MEDS: LEVETIRACETAM SOL (5 ML) 100 MG/ML UDC GT SCH ×2 (09:18→21:50)
[2019-12-31] MEDS: HYDROCORTISONE SOD SUCCINATE 100 MG/2 ML VIAL IV SCH (09:18)
[2019-12-31] MEDS: AMANTADINE HCL 100 MG CAPSULE PO SCH ×2 (09:18→16:51)
--- NOTE | 2019-12-31 11:00 | NUR ---
RN NOTES T=101. PARKING REGULATION ENFORCEMENT OFFICER NOTIFIED , TYLENOL GIVEN, PT PALCED ON COOLING BLANKET . CONTINUE TO MONITOR .
--- NOTE | 2019-12-31 12:00 | NUR ---
Pt placed on 10lpm @ 40% via Tpiece @1145 hrs per MD Hargrove order. No signs of resp. distress noted. Will continue to monitor Q shift Addendum: 12/31/19 at 1231 by STEVEN RODNEY RT Amended: Links added.
--- NOTE | 2019-12-31 12:25 | NUR ---
Pt placed on previous AC settings @ 1215hrs due to labored swallow breathing. Charge Nurse and MD Hargrove notified. Pt stable and alert with no signs of resp. distress noted. Will continue to monitor
--- NOTE | 2019-12-31 13:00 | NUR ---
RN NOTES PT BACK ON AC VENT MODE , UNABLE TO TOLERATE WEANING , CONTINUE TO MONITOR
[2019-12-31] MEDS: CEFEPIME 2 GM in IV D5W 100 ML IV SCH (14:41)
--- NOTE | 2019-12-31 15:00 | NUR ---
RN PT IS MORE AWAKE IS ABLE TO MAKE SIMPLE COMMANDS KNOW. PT IS ABLE TO MORE HANDS AND MAKE SMALL MOVEMENT. CONTINUE TO MONITOR .
[2019-12-31] MEDS: ACETAMINOPHEN 325 MG TABLET PO PRN (18:29)
--- NOTE | 2019-12-31 18:33 | NUR ---
RN NOTES T-100.4 AT THIS TIME, TRACH CARE DONE, GT TO LIS WITH DARK GREENISH STOMACH DRAINAGE DRAINING. REMAINS NPO, R IJ AND R FEMORAL HD CATH SITE CLEAN,DRY AND INTACT, SR UP X3, CALL LIGHT WITHIN EASY REACH, BED LOCKED AND IN LOWEST POSITION, WILL ENDOSE TO LABORATORY ANIMAL CARE VETERINARIAN NURSE FOR CONTINUITY OF CARE .
--- NOTE | 2019-12-31 20:29 | NUR ---
RT pt received on mechanical ventilator. trached, luis enrique 8. ac 22 550 40% +5. ambu bag at [facility]. spare trach at bedside. no sob, no resp distress. trach care performed. no new orders at the moment. will continue to monitor.
--- NOTE | 2019-12-31 20:42 | NUR ---
SPOKE TO (RYAN HART) AND UPDATED HER ON HER HUSBANDS STATUS. ANSWERED AL QUESTIONS. PROVIDED PHONE NUMBER IN CASE OF ANYTHING. Addendum: 12/31/19 at 4 by CECILLE KWON RN DISREGARD: INCORRECT PATIENT
[2020-01-01] VITALS (42 sets, daily range): BP systolic 93–151; BP diastolic 41–90
[2020-01-01] MEDS: ALBUTEROL FS 2.5 MG/3 ML VIAL.NEB NEB SCH ×4 (01:30→19:43)
[2020-01-01] MEDS: IPRATROPIUM NEB FS 0.5 MG/2.5 ML AMPUL.NEB NEB SCH ×4 (01:49→19:43)
[2020-01-01 04:35] LABS: BASOPHILS # (AUTO) 0.1 /CMM (0.0-0.2); BASOPHILS % (AUTO) 0.7 % (0.0-2.0); EOSINOPHILS % (AUTO) 5.8 % (0.0-6.0); HEMATOCRIT 22 % (39-51); HEMOGLOBIN 7.2 g/dL (13.5-17.5); LYMPHOCYTES # (AUTO) 0.8 /CMM (0.8-4.8); MEAN CORPUSCULAR HGB CONC 32 g/dl (31.0-36.0); MEAN CORPUSCULAR VOLUME 119 fL (80-96); MONOCYTES # (AUTO) 0.9 /CMM (0.1-1.30); MONOCYTES % (AUTO) 6.7 % (2.0-12.0); NEUTROPHILS # (AUTO) 10.8 /CMM (1.8-8.9); NEUTROPHILS % (AUTO) 80.8 % (43.0-81.0); PLATELET COUNT (AUTO) 205 /CMM (150-450); WHITE BLOOD COUNT (AUTO) 13.4 K/uL (4.3-11.0)
[2020-01-01 04:42] LABS: RED BLOOD CELL COUNT(AUTO) 1.88 MIL/uL (4.5-6.0)
[2020-01-01] MEDS: ACETAMINOPHEN 325 MG TABLET PO PRN (04:44)
[2020-01-01 04:56] LABS: CALCIUM, SERUM 9.4 mg/dL (8.5-10.1); CREATININE 4.4 mg/dL (0.6-1.3); MAGNESIUM 2.7 mg/dL (1.8-2.4); PHOSPHORUS 4.3 mg/dL (2.5-4.9); POTASSIUM 4.5 mmol/L (3.5-5.1)
[2020-01-01] MEDS: CLOTRIMAZOLE/BETAMETASONE DIPROPIONATE 15 GM TUBE TP SCH ×3 (06:07→20:47)
[2020-01-01] MEDS: MODAFINIL 100 MG TABLET PO SCH ×2 (06:09→12:49)
--- NOTE | 2020-01-01 06:51 | NUR ---
REPORT GIVEN TO [facility] MORNING SHIFT NURSE FOR YANETH.
--- NOTE | 2020-01-01 07:03 | NUR ---
RN NOTES RECEIVED PATIENT ON BED, TRACH/VENT DEPENDENT, OPENS EYES TO VERBAL STIMULI, ABLE TO TRACH, AND FOLLOWS SIMPLE COMMAND NON VERBAL, TOLERATING CURRENT VENT SETTING WELL, ON TELE ST HR IN 120'S, TEMPERATURE =101.2, PT ON COOLING BLANKET, R FEMORAL HD CATH IS CLEAN , DRY AND INTACT, GT IS ATTACHED TO LIS , WITH DARK GREENISH STOMACH DRAINAGE, DOMINGUEZ CATH DRAINING , WITH SMALL AMOUNT OF JOYCE COLOR URINE. SR UP x3, CALL LIGHT WITHIN EASY REACH, BED LOCKED AND IN LOWEST POSITION, TURN AND REPOSITION , PATIENT OFFLOADED EXT WITH PILLOWS. KEPT PT CLEAN AND DRY. CONTINUE TO MONITOR.
[2020-01-01] MEDS: ACETYLCYSTEINE 10% SOLN 400 MG/4 ML VIAL NEB SCH ×2 (08:00→13:07)
[2020-01-01] MEDS: AMANTADINE HCL 100 MG CAPSULE PO SCH ×2 (08:33→16:43)
[2020-01-01] MEDS: LEVETIRACETAM SOL (5 ML) 100 MG/ML UDC GT SCH ×2 (08:33→20:46)
[2020-01-01] MEDS: PANTOPRAZOLE 40 MG/PACK PACK GT SCH (08:33)
[2020-01-01] MEDS: SEVELAMER CARBONATE 800 MG POWD.PACK GT SCH ×3 (08:34→16:43)
--- NOTE | 2020-01-01 11:17 | NUR ---
RN NOTES PT RECEIVING HD AT THIS TIME.
[2020-01-01] MEDS: CEFEPIME 2 GM in IV D5W 100 ML IV SCH (13:48)
--- NOTE | 2020-01-01 15:00 | NUR ---
RN NOTES T=100.7 RECTALLY, CONTINUE TO MONITOR .
--- NOTE | 2020-01-01 18:00 | NUR ---
RN NOTES STOOL IS POSITIVE FOR OB, CONNOR SHOE TURNER NOITFED .
--- NOTE | 2020-01-01 18:22 | NUR ---
RN NOTES T=100.1 AT THIS TIME, TRACH CARE DONE, GT TO LIS WITH DARK GREENISH STOMACH DRAINAGE DRAINING. REMAINS NPO, R IJ AND R FEMORAL HD CATH SITE CLEAN,DRY AND INTACT, SR UP X3, CALL LIGHT WITHIN EASY REACH, BED LOCKED AND IN LOWEST POSITION, WILL ENDOSE TO EFFERVESCENT SALTS COMPOUNDER NURSE FOR CONTINUITY OF CARE .
--- NOTE | 2020-01-01 21:53 | NUR ---
RECEIVED PT TRACH SHLY [address] [facility] VENT. PT IS AWAKE NO RESP DISTRESS. PT TOLERATING VENT SETTINGS. SX'D MOD AMT OF THICK YELLOW SECRETIONS. VENT ALARMS SET AND AUDIBLE. AMBU BAG AT BEDSIDE. SPARE TRACH AT BEDSIDE. WILL CONTINUE TO MONITOR. Addendum: 01/01/20 at 2156 by SRIRAM GIANG RT Amended: Links added.
[2020-01-02] VITALS (17 sets, daily range): BP systolic 93–123; BP diastolic 37–73
[2020-01-02] MEDS: ALBUTEROL FS 2.5 MG/3 ML VIAL.NEB NEB SCH ×4 (00:55→19:36)
[2020-01-02] MEDS: IPRATROPIUM NEB FS 0.5 MG/2.5 ML AMPUL.NEB NEB SCH ×4 (00:55→19:36)
[2020-01-02] MEDS: ACETYLCYSTEINE 10% SOLN 400 MG/4 ML VIAL NEB SCH ×3 (00:55→13:39)
[2020-01-02 04:19] LABS: BASOPHILS % (AUTO) 0.6 % (0.0-2.0); EOSINOPHILS % (AUTO) 9.2 % (0.0-6.0); LYMPHOCYTES # (AUTO) 0.7 /CMM (0.8-4.8); LYMPHOCYTES % (AUTO) 8.4 % (20.0-44.0); MEAN CORPUSCULAR HGB CONC 32 g/dl (31.0-36.0); MEAN CORPUSCULAR VOLUME 120 fL (80-96); MONOCYTES # (AUTO) 0.5 /CMM (0.1-1.30); MONOCYTES % (AUTO) 6.4 % (2.0-12.0); NEUTROPHILS # (AUTO) 5.9 /CMM (1.8-8.9); NEUTROPHILS % (AUTO) 75.4 % (43.0-81.0); PLATELET COUNT (AUTO) 152 /CMM (150-450); WHITE BLOOD COUNT (AUTO) 7.8 K/uL (4.3-11.0)
[2020-01-02 04:28] LABS: CALCIUM, SERUM 8.9 mg/dL (8.5-10.1); MAGNESIUM 2.6 mg/dL (1.8-2.4); PHOSPHORUS 3.8 mg/dL (2.5-4.9); POTASSIUM 4.1 mmol/L (3.5-5.1)
[2020-01-02 04:49] LABS: RED BLOOD CELL COUNT(AUTO) 1.61 MIL/uL (4.5-6.0)
[2020-01-02 04:50] LABS: HEMATOCRIT 19 % (39-51); HEMOGLOBIN 6.3 g/dL (13.5-17.5)
[2020-01-02] MEDS: MODAFINIL 100 MG TABLET PO SCH ×2 (05:12→15:15)
[2020-01-02] MEDS: CLOTRIMAZOLE/BETAMETASONE DIPROPIONATE 15 GM TUBE TP SCH ×3 (05:13→20:20)
[2020-01-02 05:44] LABS: BAND % (MANUAL) 2 % (0.0-5.0); EOSINOPHILS % (MANUAL) 6 % (0-4); LYMPHOCYTES % (MANUAL) 3 % (16-48); MONOCYTES % (MANUAL) 2 % (0-11.0); NEUTROPHILS % (MANUAL) 87 (42-76)
--- NOTE | 2020-01-02 06:47 | NUR ---
DATA ANALYSIS MANAGER 6.05/24 NO NEW ORDERS RECEIVED AT THIS TIME. MD ADVISES PLAN OF CARE BE DISCUSSED WITH FAMILY AND PRIMARY MD.
--- NOTE | 2020-01-02 07:30 | NUR ---
RN OPENING NOTE: RECEIVED PATIENT IN BED THIS MORNING. PATIENT HAS TRACH, TOLERATING VENT SETTINGS WELL, NO SIGNS OF ACUTE DISTRESS NOTED AT THIS TIME. SINUS TACHY IN 110S NOTED ON BEDSIDE MONITOR. FC DRAINING URINE. RIJ C/D/I, FLUSHING WELL, NO SIGNS OF COMPLICATIONS NOTED. R FEMORAL HD CATH, C/D/I. PATIENT IS JAUNDICE. WOUND CARE PER ORDERS. GT AT LIS. PATIENT IS NPO AT THIS TIME. SAFETY MEASURES IMPLEMENTED, BED IN LOWEST POSITION, LOCKED, SIDE RAILS UP, CALL LIGHT WITHIN REACH. WILL CONTINUE TO MONITOR PATIENT FOR CHANGES.
--- NOTE | 2020-01-02 07:40 | NUR ---
RT PATIENT REC'D TRACHED ON [facility] VENT WITH ORDERED SETTINGS. AMBU BAG AT [facility]. PATIENT IN NO DISTRESS AT THIS TIME. Addendum: 01/02/20 at 1021 by CAROLYNE MCCORMACK RT Amended: Links added.
[2020-01-02] MEDS: LEVETIRACETAM SOL (5 ML) 100 MG/ML UDC GT SCH ×2 (08:04→20:20)
[2020-01-02] MEDS: PANTOPRAZOLE 40 MG/PACK PACK GT SCH (08:04)
[2020-01-02] MEDS: SEVELAMER CARBONATE 800 MG POWD.PACK GT SCH ×3 (08:04→16:54)
[2020-01-02] MEDS: AMANTADINE HCL 100 MG CAPSULE PO SCH ×2 (08:04→16:54)
--- NOTE | 2020-01-02 08:35 | NUR ---
INDUSTRIAL ILLUMINATING ENGINEER NOTE: TRANSFERRED PATIENT TO [facility], GAVE REPORT TO REGINA MARTINEZ. AT TIME OF TRANSFER, NO SIGNS OF ACUTE DISTRESS NOTED. ENDORSED ABOUT 1 UNIT PRBC ORDER INPUT FOR TRANSFUSION, TO INFORM MD THAT PATIENT IS JAUNDICE AND GETTING WORSE, POSSIBLE DISCUSSION FOR HEMATOLOGY CONSULT DUE TO LOW HGB AND TO CLARIFY IF PATIENT CAN RECEIVE MEDS ON NPO STATUS VIA GT. SAFETY MEASURES IMPLEMENTED, BED IN LOWEST POSITION, LOCKED, SIDE RAILS UP, CALL LIGHT WITHIN REACH. WILL CONTINUE TO MONITOR PATIENT FOR CHANGES. Addendum: 01/02/20 at 0952 by NISREEN JONES RN PATIENT WAS TRANSFERRED TO [facility] AND IS UNDER THE CARE OF MICHELLE TAPIA
--- NOTE | 2020-01-02 09:30 | NUR ---
CARTON MAKER NOTE: PT RECEIVED FROM LEGAL OFFICER. NO SIGNS OF RESPIRATORY DISTRESS OR SOB. PT O2 SAT 94% ON PRESCRIBED VENT/TRACH SETTINGS. GRAHAM#8, AC 22, TV 550, FIO2 40%, PEEP 5. PT TEMP 99.9, ON COOLING BLANKET. PT TO HAVE HD TODAY WITH 1 UNIT BLOOD TRANSFUSION, PER MD ORDER. PT IS NPO, WILL FOLLOW UP WITH MD TO CLARIFY NPO OR NPO WITH MEDS STATUS. PT HAS LEFT IJ CENTRAL LINE, AND RIGHT FEMORAL HD CATH. NO SIGNS OF INFECTION OR INFILTRATION. PT IS JAUNDICE, HAS FC DRAINING YELLOW CLEAR URINE. BED IN LOCKED LOWEST POSITION. CALL LIGHT WITHIN REACH. ALL SAFETY MEASURES IN PLACE. WILL CONTINUE TO MONITOR CLOSELY. Addendum: 01/02/20 at 1944 by MICHELLE BUI RN CARTON MAKER NOTE: PT RECEIVED FROM LEGAL OFFICER. NO SIGNS OF RESPIRATORY DISTRESS OR SOB. PT O2 SAT 94% ON PRESCRIBED VENT/TRACH SETTINGS. GRAHAM#8, AC 22, TV 550, FIO2 40%, PEEP 5. PT TEMP 99.9, ON COOLING BLANKET. PT TO HAVE HD TODAY WITH 1 UNIT BLOOD TRANSFUSION, PER MD ORDER. PT IS NPO, WILL FOLLOW UP WITH MD TO CLARIFY NPO OR NPO WITH MEDS STATUS. PT HAS LEFT IJ CENTRAL LINE, AND RIGHT FEMORAL HD CATH. NO SIGNS OF INFECTION OR INFILTRATION. PT IS JAUNDICE, HAS FC DRAINING JOYCE SEDIMENTAL URINE. BED IN LOCKED LOWEST POSITION. CALL LIGHT WITHIN REACH. ALL SAFETY MEASURES IN PLACE. WILL CONTINUE TO MONITOR CLOSELY.
--- NOTE | 2020-01-02 12:00 | NUR ---
CAREER SERVICES COORDINATOR NOTE: EXECUTIVE ADVISOR IN THE ROOM WITH PT. 1 U PRBC GIVEN TO EXECUTIVE ADVISOR FOR TRANSFUSION.
--- NOTE | 2020-01-02 14:00 | NUR ---
HEALTH AND NUTRITION SPECIALIST NOTE: HD SESSION COMPLETE. CONTRACT MANAGER REPORTS 300 ML OUTPUT. 1 UNIT GIVEN, TRANSFUSED, NO ADVERSE REACTION.
[2020-01-02] MEDS: CEFEPIME 2 GM in IV D5W 100 ML IV SCH (15:16)
--- NOTE | 2020-01-02 18:00 | NUR ---
PROBATION MANAGER NOTE: LOTRISONE CREAM AND MEPILEX PADS APPLIED SACRUM AND INNER BUTTOCKS AREA PER WOUND CARE INSTRUCTIONS
--- NOTE | 2020-01-02 19:05 | NUR ---
RECEIVED PT ON BED AWAKE OPEN EYES ON TRACH VENT SETTING ORDERED SPO2 99% TELE MONITOR READS SINUS TACHY 110, NO SIGNS OF PAIN NOTED, RIJ PICC LINE PATENT AND FLUSH, RIGHT FEMORAL HD ON PLACE CLEAN DRY AND INTACT, GTUBE ON PLACE CONNECTED TO LOW INTERMITTENT SUCTION, HAVE DOMINGUEZ WITH JOYCE SEDIMENTAL URINE DRAINING VIA GRAVITY, PT ON COOLING BLANKET WITH CURRENT TEMP OF 100 F, SAFETY MEASURE MAINTAINED BED ON LOWEST POSITION AND LOCKED SIDE RAILS UP WILL CONT TO MONITOR
--- NOTE | 2020-01-02 19:39 | NUR ---
ORNAMENTAL IRON WORKER APPRENTICE NOTE: PT NO CHANGE IN CONDITION THIS SHIFT. PT ON PRESCRIBED TRACH/VENT SETTINGS: SHILEY 8, TV 550, FIO2 40%, PEEP 5. NO RESPIRATORY DISTRESS OR SOB. PT REMAINS G-TUBE ON LIS. 10 ML RESIDUAL NOTED. PT IV ACCESS AND HD CATH REMAINS DRY AND INTACT. LEFT IJ RUNNING TKO. NO SIGNS OF INFECTION OR INFILTRATION. PT TEMP ELEVATED THIS SHIFT, COOLING BLANKET APPLIED. DOMINGUEZ REMAINS INTACT DRAINING JOYCE SEDIMENTAL URINE. CALL LIGHT WITHIN REACH. ALL SAFETY MEASURES IN PLACE. REPORT GIVEN TO ONCOMING RN FOR YANETH.
--- NOTE | 2020-01-02 19:44 | NUR ---
RT pt received on mechanical vent with current settings. trached with shiley 8 cuffed. vent plugged in to red outlet. ambu bag at bedside. spare trach at bedside. alarms on and audible. no sob/ no resp distress at this time. will continue to monitor.
[2020-01-03] VITALS: BP 111/65
[2020-01-03] MEDS: ACETYLCYSTEINE 10% SOLN 400 MG/4 ML VIAL NEB SCH ×4 (00:13→23:01)
[2020-01-03 01:12] LABS: OCCULT BLOOD STOOL POSITIVE (NEGATIVE)
[2020-01-03] MEDS: ALBUTEROL FS 2.5 MG/3 ML VIAL.NEB NEB SCH ×4 (01:46→19:14)
[2020-01-03] MEDS: IPRATROPIUM NEB FS 0.5 MG/2.5 ML AMPUL.NEB NEB SCH ×4 (01:46→19:14)
[2020-01-03 04:01] VITALS: BP 116/61
[2020-01-03] MEDS: CLOTRIMAZOLE/BETAMETASONE DIPROPIONATE 15 GM TUBE TP SCH ×3 (05:01→22:31)
[2020-01-03] MEDS: MODAFINIL 100 MG TABLET PO SCH ×2 (05:04→13:13)
[2020-01-03 06:25] LABS: BASOPHILS % (AUTO) 0.5 % (0.0-2.0); EOSINOPHILS % (AUTO) 13.8 % (0.0-6.0); HEMATOCRIT 24 % (39-51); HEMOGLOBIN 7.7 g/dL (13.5-17.5); LYMPHOCYTES # (AUTO) 0.7 /CMM (0.8-4.8); LYMPHOCYTES % (AUTO) 10.6 % (20.0-44.0); MEAN CORPUSCULAR HGB CONC 32 g/dl (31.0-36.0); MEAN CORPUSCULAR VOLUME 115 fL (80-96); MONOCYTES # (AUTO) 0.4 /CMM (0.1-1.30); MONOCYTES % (AUTO) 5.9 % (2.0-12.0); NEUTROPHILS # (AUTO) 4.3 /CMM (1.8-8.9); NEUTROPHILS % (AUTO) 69.2 % (43.0-81.0); PLATELET COUNT (AUTO) 177 /CMM (150-450); RED BLOOD CELL COUNT(AUTO) 2.09 MIL/uL (4.5-6.0); WHITE BLOOD COUNT (AUTO) 6.2 K/uL (4.3-11.0)
[2020-01-03 06:43] LABS: CALCIUM, SERUM 9.6 mg/dL (8.5-10.1); CREATININE 3.7 mg/dL (0.6-1.3); MAGNESIUM 2.6 mg/dL (1.8-2.4); PHOSPHORUS 4.5 mg/dL (2.5-4.9); POTASSIUM 4.5 mmol/L (3.5-5.1)
--- NOTE | 2020-01-03 07:19 | NUR ---
PT ON BED ASLEEP NO SIGN AND SYMPTOMS OF RESPIRATORY DISTRESS, COOLING MEASURE STILL AT PLACE LATEST TEMP 98.9, TRACH AND VENT SETTING PER MD SPO2 95%, TELE MONITOR READS SINUS TACHY 110S, TRACH CARE AND WOUND CARE DONE, NO SIGNIFICANT CHANGES ON CONDITION NOTED ALL NEEDS ATTENDED SAFETY MEASURE MAINTAIN BED ON LOWEST POSITION AND LOCKED SIDE RAILS UP X2 CALL LIGHT WITHIN REACH WILL ENDORSED TO AM SHIFT NURSE
--- NOTE | 2020-01-03 07:30 | NUR ---
RN OPENING NOTES RECEIVED PATIENT IN BED THIS MORNING. PATIENT HAS MECHANICAL VENTILATION WITH GOOD TOLERANCE. NO SIGNS OF ACUTE DISTRESS NOTED AT THIS TIME. SINUS TACHY IN 117s. NOTED ON BEDSIDE MONITOR. FC DRAINING URINE. RIGHT JUGULAR PICC INTACT AND FLUSHING WELL, NO SIGNS OF COMPLICATIONS NOTED. R FEMORAL HD CATH INTACT. WOUND CARE PER ORDERS. GT AT INTERMITTENT SUCTION. SAFETY PRECAUTIONS OBSERVED, BED IN LOWEST POSITION, LOCKED, SIDE RAILS UP, CALL LIGHT WITHIN REACH. WILL CONTINUE TO MONITOR FOR ANY CHANGE IN CONDITION.
[2020-01-03 08:00] VITALS: BP 113/56
[2020-01-03] MEDS: AMANTADINE HCL 100 MG CAPSULE PO SCH ×2 (08:47→16:45)
[2020-01-03] MEDS: LEVETIRACETAM SOL (5 ML) 100 MG/ML UDC GT SCH ×2 (08:47→22:27)
[2020-01-03] MEDS: SEVELAMER CARBONATE 800 MG POWD.PACK GT SCH ×3 (08:47→16:43)
[2020-01-03] MEDS: PANTOPRAZOLE 40 MG/PACK PACK GT SCH (08:47)
[2020-01-03] MEDS: MORPHINE SULFATE INJ 2 MG/ML DISP.SYRIN IV PRN (09:34)
[2020-01-03 12:00] VITALS: BP 97/52
[2020-01-03] MEDS: LORAZEPAM INJ 2 MG/ML VIAL IV PRN (13:16)
[2020-01-03] MEDS: CEFEPIME 2 GM in IV D5W 100 ML IV SCH (14:42)
[2020-01-03 16:00] VITALS: BP 101/51
[2020-01-03] MEDS: ACETAMINOPHEN 325 MG TABLET PO PRN (16:49)
--- NOTE | 2020-01-03 18:38 | NUR ---
CENTRIFUGAL SEPARATOR CLOSING NOTES PT REMAINS OBTUNDED WITH EPISODES OF OPENING EYES ON VERBAL STIMULI. PT IV ACCESS AND HD CATH REMAINS DRY AND INTACT. LEFT IJ RUNNING TKO. TELE MONITOR READS SINUS TACHYCARDIA WITH HR IN 120S. NO SIGNS OF INFECTION OR INFILTRATION. COOLING BLANKET APPLIED FOR ELEVATED TEMP. DOMINGUEZ REMAINS INTACT DRAINING JOYCE SEDIMENTAL URINE. CALL LIGHT WITHIN REACH. ALL SAFETY MEASURES IN PLACE. WILL ENDORSE TO NEXT SHIFT FOR YANETH.
--- NOTE | 2020-01-03 19:30 | NUR ---
RT NOTE pt received on mechanical vent with current settings. trached with shiley 8 cuffed. vent plugged in to red outlet. ambu bag at bedside. spare trach at bedside. alarms on and audible. no sob. janusz tx well. no s/s of respiratory distress noted. will continue to monitor.
[2020-01-03 20:00] VITALS: BP 103/53
--- NOTE | 2020-01-03 22:08 | NUR ---
MYRON/RN RECEIVED PATIENT AT AROUND 2000 IN BED AWAKE, NON VERBAL, WITH [facility] VENTILATOR WORKING WELL, RESTLESS, MOUTH VERY DRY,MOUTH CARE RENDERED, NPO, GT TO LOW INTERMITTENT SUCTION, WITH GREEN COLORED GASTRIC OUTPUT, COOLING BLANKET ON, NO SIGNS OF DISTRESS NOTED, CALLED [facility] TO OBTAIN HYDRATION ORDER, SPOKE WITH MANPREET DONALDSON, NO ORDER WAS RECEIVED. MANPREET DONALDSON, CAME AND SAW THE PATIENT, NO FURTHER ORDERS RECEIVED. WILL MONITOR PATIENT.
--- NOTE | 2020-01-03 23:18 | NUR ---
MYRON/RN NURSING CARE DONE, BED BATH DONE, WOUND CARE DONE PER ORDER, REPOSITION TO COMFORT. WILL CONTINUE TO MONITOR.
[2020-01-04] VITALS (10 sets, daily range): BP systolic 100–132; BP diastolic 60–82
[2020-01-04] MEDS: IPRATROPIUM NEB FS 0.5 MG/2.5 ML AMPUL.NEB NEB SCH ×4 (01:20→19:57)
[2020-01-04] MEDS: ALBUTEROL FS 2.5 MG/3 ML VIAL.NEB NEB SCH ×4 (01:20→19:57)
[2020-01-04] MEDS: MODAFINIL 100 MG TABLET PO SCH ×2 (06:21→12:56)
[2020-01-04] MEDS: CLOTRIMAZOLE/BETAMETASONE DIPROPIONATE 15 GM TUBE TP SCH ×3 (06:21→21:06)
--- NOTE | 2020-01-04 06:26 | NUR ---
MYRON/RN PATIENT APPEARS SLEEPING, APPEARS COMFORTABLE, NO SIGNS OF DISTRESS NOTED, CALL LIGHT IN REACH ALL NEEDS ATTENDED AT THIS TIME. WILL CONTINUE TO MONITOR.
[2020-01-04 06:34] LABS: BASOPHILS % (AUTO) 0.3 % (0.0-2.0); EOSINOPHILS % (AUTO) 9.4 % (0.0-6.0); HEMATOCRIT 22 % (39-51); LYMPHOCYTES # (AUTO) 0.6 /CMM (0.8-4.8); LYMPHOCYTES % (AUTO) 6.9 % (20.0-44.0); MEAN CORPUSCULAR HGB CONC 32 g/dl (31.0-36.0); MEAN CORPUSCULAR VOLUME 114 fL (80-96); MONOCYTES # (AUTO) 0.4 /CMM (0.1-1.30); NEUTROPHILS # (AUTO) 7.1 /CMM (1.8-8.9); NEUTROPHILS % (AUTO) 79.4 % (43.0-81.0); PLATELET COUNT (AUTO) 192 /CMM (150-450); WHITE BLOOD COUNT (AUTO) 8.9 K/uL (4.3-11.0)
[2020-01-04 06:43] LABS: RED BLOOD CELL COUNT(AUTO) 1.91 MIL/uL (4.5-6.0)
[2020-01-04] MEDS: ACETYLCYSTEINE 10% SOLN 400 MG/4 ML VIAL NEB SCH ×3 (07:03→23:27)
[2020-01-04 07:06] LABS: CALCIUM, SERUM 9.3 mg/dL (8.5-10.1); CREATININE 4.4 mg/dL (0.6-1.3); MAGNESIUM 2.7 mg/dL (1.8-2.4); PHOSPHORUS 5.3 mg/dL (2.5-4.9); POTASSIUM 4.6 mmol/L (3.5-5.1)
--- NOTE | 2020-01-04 07:32 | NUR ---
MYRON/RN HG 7.0, ENDORSED TO NEXT RN FOR MD F/U.
--- NOTE | 2020-01-04 07:34 | NUR ---
RN OPENING NOTES RECEIVED PATIENT IN BED THIS MORNING. PATIENT ON MECHANICAL VENTILATION AND TOLERATES SETTINGS WELL. NO SIGNS OF ACUTE DISTRESS NOTED AT THIS TIME. SINUS TACHY IN 100s. FC DRAINING URINE. RIGHT JUGULAR PICC INTACT AND FLUSHING WELL, NO SIGNS OF COMPLICATIONS NOTED. RIGHT FEMORAL HD CATH INTACT. WOUND CARE PER ORDERS. GT AT INTERMITTENT SUCTION. SAFETY PRECAUTIONS OBSERVED, BED KEPT IN LOWEST POSITION FOR SAFETY. WILL CONTINUE TO MONITOR.
[2020-01-04] MEDS: SEVELAMER CARBONATE 800 MG POWD.PACK GT SCH ×3 (08:22→16:38)
[2020-01-04] MEDS: LEVETIRACETAM SOL (5 ML) 100 MG/ML UDC GT SCH ×2 (08:22→21:08)
[2020-01-04] MEDS: PANTOPRAZOLE 40 MG/PACK PACK GT SCH (08:22)
[2020-01-04] MEDS: AMANTADINE HCL 100 MG CAPSULE PO SCH ×2 (08:27→16:38)
[2020-01-04 08:30] LABS: BILIRUBIN,TOTAL 3.5 mg/dL (0.2-1.0)
[2020-01-04] MEDS ORDERED: methylPREDNISolone SOD SUCC 125 MG/2ML VIAL IV ONE (10:30)
[2020-01-04] MEDS: CEFEPIME 2 GM in IV D5W 100 ML IV SCH (14:44)
--- NOTE | 2020-01-04 15:06 | NUR ---
HGB OF 7.[address] MCDANIELS. SHEET ROCK LAYER, DR CONTRERAS WITH ORDERS TO HOLD BLOOD TRANSFUSION UNLESS HGB IS BELOW 7.0, DR MCDANIELS AGREED.
[2020-01-04 16:06] LABS: BASOPHILS % (AUTO) 0.3 % (0.0-2.0); EOSINOPHILS % (AUTO) 7.4 % (0.0-6.0); HEMATOCRIT 22 % (39-51); LYMPHOCYTES # (AUTO) 0.3 /CMM (0.8-4.8); LYMPHOCYTES % (AUTO) 4.1 % (20.0-44.0); MEAN CORPUSCULAR HGB CONC 32 g/dl (31.0-36.0); MEAN CORPUSCULAR VOLUME 114 fL (80-96); MONOCYTES # (AUTO) 0.2 /CMM (0.1-1.30); MONOCYTES % (AUTO) 2.9 % (2.0-12.0); NEUTROPHILS # (AUTO) 6.6 /CMM (1.8-8.9); NEUTROPHILS % (AUTO) 85.3 % (43.0-81.0); PLATELET COUNT (AUTO) 192 /CMM (150-450); WHITE BLOOD COUNT (AUTO) 7.7 K/uL (4.3-11.0)
[2020-01-04 16:36] LABS: HEMOGLOBIN 6.8 g/dL (13.5-17.5)
[2020-01-04 16:57] LABS: EOSINOPHILS % (MANUAL) 8 % (0-4); LYMPHOCYTES % (MANUAL) 6 % (16-48); MONOCYTES % (MANUAL) 2 % (0-11.0); NEUTROPHILS % (MANUAL) 84 (42-76)
--- NOTE | 2020-01-04 18:53 | NUR ---
RN CLOSING NOTES PT REMAINS OBTUNDED WITH EPISODES OF OPENING EYES ON VERBAL STIMULI. PT IV ACCESS AND HD CATH REMAINS DRY AND INTACT. LEFT IJ RUNNING TKO. TELE MONITOR READS SINUS TACHYCARDIA WITH HR IN 120S. NO SIGNS OF INFECTION OR INFILTRATION. COOLING BLANKET APPLIED FOR ELEVATED TEMP. DOMINGUEZ REMAINS INTACT DRAWING JOYCE COLORED URINE. CALL LIGHT WITHIN REACH. ALL SAFETY MEASURES IN PLACE. RECENT CBC RESULTS NOTED WITH HGB OF 6.8, DR CONTRERAS WITH INSTRUCTIONS TO TRANSFUSE BLOOD FOR HGB LESS THAN 7.0, WILL ENDORSE TO NEXT SHIFT FOR YANETH
--- NOTE | 2020-01-04 19:15 | NUR ---
RN OPENING NOTES: RECEIVED PT A/OX1 ; NO VERBAL, PATIENT IN BED RESTING COMFORTABLY. PATIENT IN NO S/SX OF ACUTE DISTRESS AT THIS TIME. NO SOB NOTED. PATIENT'S BREATHING IS EVEN AND UNLABORED.PATIENT ON MECHANICAL VENT; SETTINGS PRESCRIBED; PT TOLERATED WELL. AMBU BAG AT BED SIDE ALARMS SET PER PROTOCOL AND AUDIBLE. VENT PLUGGED IN TO RED OUTLET. NO DISTRESS NOTED. PATIENT ON TELE MONITORING READING SINUS TACHY HR IS @100s. G TUBE FLUSHING AND PATENT; SITE CLEAN DRY AND INTACT; NO RESIDUAL NOTED. G TUBE IN INTERMITTENT SUCTION. NOTED IV SITE ON THE FOLLOWING: R IJ TRIPLE LUMEN AND R FEMORAL HD CATH; BOTH PATENT, INTACT AND NO S/S OF INFECTION OR INFILTRATION. DOMINGUEZ CATH IN PLACE, MODERATE URINE OUTPUT NOTED. SAFETY MEASURES HAVE BEEN PROVIDED AND IMPLEMENTED. PATIENT BED ALARM IS ON. HEAD OF BED ELEVATED. BED IS LOCKED, IN LOWEST POSITION AND SIDE RAILS UP. CALL LIGHT WITHIN REACH OF THE PATIENT. ISOLATION AND SAFETY PRECAUTIONS IN PLACE. WILL CONTINUE TO MONITOR AND REASSESS FOR ANY CHANGES AND WILL CARRY OUT ANY ONGOING AND ACTIVE MD ORDER.
--- NOTE | 2020-01-04 20:15 | NUR ---
RN NOTES RECEIVED CALL FROM LAB , SPOKE WITH GERHARD, SHE TRIED TO VERIFY ABOUT TXN REACTION WORKUP ORDER PLACED TODAY UNDER DR. HOBSON, AND THEY CANT PROCEED THERE'S NO INFO REGARDING ANY REACTION BASED ON THE LAST BLOOD TRANSFUSION DATED 12.29.2019. ADVISED HER THAT WILL CHECK ON THIS AND WILL INFORM MD IF THERE'S A NEED TO CANCEL OR PROCEED. LUBRICATION SERVICER WELL AWARE OF THIS. CALLED DAMARIS DRAKE ( ANIKA GRIGGS NP) ADVISED HIM REGARDING THE CONCERN, PT GOT BLOOD TRANSFUSION LAST 12.29.2019, PT HAS AN ON AND OFF FEVER DAYS BEFORE AND AFTER THE BLOOD TRANSFUSION. ALSO ADVISED HIM ABOUT THE ORDER OF TXN REACTION WORKUP AND THE CURRENT HGB LEVEL @6.8. HE SAID TO CANCEL ORDER OF TXN REACTION WORKUP AND PROCEED WITH DUE BLOOD TRANSFUSION OF 1 PRBC AND GIVE TYLENOL 650MG PRIOR TO TRANSFUSION AND MONITOR CLOSELY FOR ANY ADVERSE REACTION. LUBRICATION SERVICER MADE AWARE. AND WILL INFORM LAB.
--- NOTE | 2020-01-04 21:30 | NUR ---
RN NOTES ADMINISTERED DUE MEDS (LEVITIRACEM 500MG/5ML) VIA G TUBE, PRIOR TO ADMINISTRATION RN CHECK FOR PATENCY VIA FLUSHING. G TUBE NOTED TO BE INTACT, PATENT AND FLUSHING WELL. PROMOTIONS DIRECTOR MADE AWARE. WILL CONTINUE TO MONITOR AND REASSESS FOR ANY CHANGES THROUGHOUT THE SHIFT
[2020-01-04] MEDS: MORPHINE SULFATE INJ 2 MG/ML DISP.SYRIN IV PRN (21:53)
--- NOTE | 2020-01-04 22:27 | NUR ---
RN NOTES STARTED 1 BAG OF PRBC ORDERED AND ADMINISTERED PER PROTOCOL. INITIAL VITAL SIGNS TAKEN AND RECORDED. WILL CONTINUE TO MONITOR FOR ANY BLOOD TRANSFUSION REACTION/ADVERSE EFFECTS AND ADDRESS NEEDED. PAULINO TAPIA MADE AWARE. Addendum: 01/05/20 at 0137 by JAVIER EDMONDSON RN ENDED INFUSION AT 0127, NO TRANSFUSION REACTION NOTED. VITAL SIGNS WNL. PAULINO TAPIA MADE AWARE. WILL CONTINUE TO MONITOR AND REASSESS FOR ANY TRANSFUSION REACTION POST PROCEDURE.
[2020-01-04] MEDS: ACETAMINOPHEN 325 MG TABLET PO PRN (22:36)
[2020-01-05] VITALS (8 sets, daily range): BP systolic 98–123; BP diastolic 61–71
--- NOTE | 2020-01-05 01:00 | NUR ---
RN NOTES NO CHANGE IN PATIENT CONDITION AT THIS TIME PATIENT VITALS STABLE, NO SIGNS OF ACUTE RESPIRATORY DISTRESS. SHORTS SIFTER MADE AWARE. WILL CONTINUE TO MONITOR AND REASSESS FOR ANY CHANGES THROUGHOUT THE SHIFT.
[2020-01-05] MEDS: ALBUTEROL FS 2.5 MG/3 ML VIAL.NEB NEB SCH ×4 (01:24→19:42)
[2020-01-05] MEDS: IPRATROPIUM NEB FS 0.5 MG/2.5 ML AMPUL.NEB NEB SCH ×4 (01:24→19:42)
[2020-01-05] MEDS: CLOTRIMAZOLE/BETAMETASONE DIPROPIONATE 15 GM TUBE TP SCH ×4 (04:23→21:43)
--- NOTE | 2020-01-05 05:00 | NUR ---
RN NOTES NO NOTED CHANGES TO PATIENT CONDITION/STATUS. TRIM MACHINE ADJUSTER MADE AWARE. WILL CONTINUE TO MONITOR AND REASSESS FOR ANY CHANGES THROUGHOUT THE SHIFT.
[2020-01-05] MEDS: MODAFINIL 100 MG TABLET PO SCH ×2 (05:52→13:03)
--- NOTE | 2020-01-05 05:54 | NUR ---
RN NOTES ADMINISTERED DUE MEDS ( PROVIGIL 200MG) VIA G TUBE, PRIOR TO ADMINISTRATION RN CHECK FOR PATENCY VIA FLUSHING. G TUBE NOTED TO BE INTACT, PATENT AND FLUSHING WELL. DEPUTY SHERIFF COURT SERVICES MADE AWARE. WILL CONTINUE TO MONITOR AND REASSESS FOR ANY CHANGES THROUGHOUT THE SHIFT
[2020-01-05 06:00] LABS: BASOPHILS % (AUTO) 0.2 % (0.0-2.0); EOSINOPHILS % (AUTO) 1.8 % (0.0-6.0); HEMATOCRIT 25 % (39-51); HEMOGLOBIN 7.9 g/dL (13.5-17.5); LYMPHOCYTES # (AUTO) 0.6 /CMM (0.8-4.8); LYMPHOCYTES % (AUTO) 5.6 % (20.0-44.0); MEAN CORPUSCULAR HGB CONC 32 g/dl (31.0-36.0); MEAN CORPUSCULAR VOLUME 107 fL (80-96); MONOCYTES # (AUTO) 0.5 /CMM (0.1-1.30); MONOCYTES % (AUTO) 5.1 % (2.0-12.0); NEUTROPHILS # (AUTO) 8.9 /CMM (1.8-8.9); NEUTROPHILS % (AUTO) 87.3 % (43.0-81.0); PLATELET COUNT (AUTO) 232 /CMM (150-450); RED BLOOD CELL COUNT(AUTO) 2.31 MIL/uL (4.5-6.0); WHITE BLOOD COUNT (AUTO) 10.3 K/uL (4.3-11.0)
[2020-01-05 06:52] LABS: BILIRUBIN,DIRECT 2.3 mg/dL (0.0-0.2); BILIRUBIN,TOTAL 2.7 mg/dL (0.2-1.0)
--- NOTE | 2020-01-05 07:05 | NUR ---
PT EYES OPEN AND RESPONDS TO VERBAL STIMULI. UNABLE TO ASSESS ORIENTATION NON VERBAL. VENT SETTING PRESCRIBED. TOLERATING WELL SPO2 97%. TELE SR ON 90S. DOMINGUEZ INTACT AND DRAINING YELLOW CLEAR URINE. NPO MAINTAINED AND GT ON LOW CONTINOUS SUCTION. MEDS ALLOWED AND WILL STOP SUCTION 1 HR BEFORE AND AFTER APPLICATIONS PACKAGER. R IJ PATENT, DRESSING INTACT. FEMORAL HD CATH INTACT. WILL MONITOR H/H AND ELECTROLYTES AND RESP STATUS THROUGHOUT SHIFT. ALL HOSPITAL POLICY SAFETY PRECAUTIONS IMPLEMENTED.
[2020-01-05 07:09] LABS: IMMUNOGLOBULIN A, SERUM 604 mg/dL (61-437); IMMUNOGLOBULIN G, SERUM 1334 mg/dL (603-1613); IMMUNOGLOBULIN M, SERUM 119 mg/dL (20-172)
[2020-01-05 07:20] LABS: CALCIUM, SERUM 9.1 mg/dL (8.5-10.1); MAGNESIUM 2.9 mg/dL (1.8-2.4); PHOSPHORUS 7.4 mg/dL (2.5-4.9); POTASSIUM 5.2 mmol/L (3.5-5.1)
[2020-01-05 07:35] LABS: EOSINOPHILS % (MANUAL) 2 % (0-4); LYMPHOCYTES % (MANUAL) 8 % (16-48); MONOCYTES % (MANUAL) 2 % (0-11.0); NEUTROPHILS % (MANUAL) 88 (42-76)
[2020-01-05] MEDS: ACETYLCYSTEINE 10% SOLN 400 MG/4 ML VIAL NEB SCH ×2 (08:22→16:06)
[2020-01-05] MEDS: SEVELAMER CARBONATE 800 MG POWD.PACK GT SCH ×3 (08:56→16:13)
[2020-01-05] MEDS: PANTOPRAZOLE 40 MG/PACK PACK GT SCH (08:56)
[2020-01-05] MEDS: AMANTADINE HCL 100 MG CAPSULE PO SCH ×2 (08:56→16:13)
[2020-01-05] MEDS: LEVETIRACETAM SOL (5 ML) 100 MG/ML UDC GT SCH ×2 (08:56→21:42)
--- NOTE | 2020-01-05 12:38 | NUR ---
PT COMPLETED DIALYSIS. 800 ML OUTPUT REPORTED PER INSOLE TOE SNIPPING MACHINE OPERATOR.
[2020-01-05] MEDS: CEFEPIME 2 GM in IV D5W 100 ML IV SCH (13:04)
[2020-01-05] MEDS: MORPHINE SULFATE INJ 2 MG/ML DISP.SYRIN IV PRN (13:12)
[2020-01-05] MEDS: ACETAMINOPHEN 325 MG TABLET PO PRN (13:52)
[2020-01-05 14:10] LABS: *SPE A/G RATIO 0.5 (0.7-1.7); *SPE ALPHA-1-GLOBULIN 0.5 g/dL (0.0-0.4); *SPE ALPHA-2-GLOBULIN 1.1 g/dL (0.4-1.0); *SPE BETA GLOBULIN 1.4 g/dL (0.7-1.3); *SPE GLOBULIN, TOTAL 4.2 g/dL (2.2-3.9); *SPE M-SPIKE Not Observed g/dL (Not Observed); *SPEGAMMA GLOBULIN 1.3 g/dL (0.4-1.8)
--- NOTE | 2020-01-05 18:48 | NUR ---
PT ASLEEP IN BED. NO SIGNS OF DISTRESS. VS WNL. VENT SETTING PRESCRIBED. TOLERATING WELL SPO2 97%. TELE SR ON 90S. DOMINGUEZ INTACT AND DRAINING YELLOW CLEAR URINE. NPO MAINTAINED AND GT ON LOW CONTINOUS SUCTION. STOPPED SUCTION 1 HR BEFORE AND AFTER AUDIO VISUAL AIDS DIRECTOR. R IJ PATENT AND FLUSHED, DRESSING INTACT. FEMORAL HD CATH INTACT. ALL ORDERS IMPLEMENTED. MONITORED H/H AND ELECTROLYTES AND RESP STATUS THROUGHOUT SHIFT. ALL HOSPITAL POLICY SAFETY PRECAUTIONS IMPLEMENTED. WILL ENDORSE PLAN OF CARE TO PM RN FOR CONTINUATION OF CARE.
--- NOTE | 2020-01-05 19:30 | NUR ---
RN NOTE RECEIVED PATIENT IN BED, NON VERBAL, OPENS EYES, RESPONSIVE TO STIMULI, IN NO S/SX OF ACUTE DISTRESS AT THIS TIME. PATIENT'S BREATHING IS EVEN AND UNLABORED. PATIENT ON TRACH CONNECTED TO MECHANICAL VENTILATOR WITH SETTINGS PRESCRIBED, TOELRATING WELL, SATURATING AT 93%. PATIENT ON TELE MONITOR READING SR, HR IS 96. NOTED RIGHT IJ TLC, PATENT AND FLUSHING WELL, AND RIGHT FEMORAL HD CATH, NO S/S OF INFECTION NOTED. NOTED GTUBE CONNECTED TO LOW INTERMITTENT SUCTION WITH MINIMAL AMOUNT OF DARK GREEN OUTPUT NOTED. DOMINGUEZ CATH CONNECTED TO URINE BAG IN PLACE, DRAINING TO A CLEAR, YELLOWISH OUTPUT. SAFETY MEASURES IMPLEMENTED PER PROTOCOL. PATIENT BED ALARM IS ON. HEAD OF BED ELEVATED. BED IS LOCKED, IN LOWEST POSITION AND SIDE RAILS UP. CALL LIGHT WITHIN REACH OF THE PATIENT. WILL CONTINUE TO MONITOR AND REASSESS FOR ANY CHANGES.
[2020-01-06] VITALS: BP 125/77
[2020-01-06] MEDS: MORPHINE SULFATE INJ 2 MG/ML DISP.SYRIN IV PRN (01:21)
[2020-01-06] MEDS: IPRATROPIUM NEB FS 0.5 MG/2.5 ML AMPUL.NEB NEB SCH ×4 (01:45→20:13)
[2020-01-06] MEDS: ALBUTEROL FS 2.5 MG/3 ML VIAL.NEB NEB SCH ×4 (01:45→20:13)
[2020-01-06] MEDS: ACETYLCYSTEINE 10% SOLN 400 MG/4 ML VIAL NEB SCH ×4 (01:45→23:02)
--- NOTE | 2020-01-06 03:41 | NUR ---
RT NOTE Pt rec'd trached on [facility] vent on AC mode. Pt shows no signs of resp distress or sob. Pt sx'd for thick large amt of yellow secretions. Trach is patent and secured. Alarms are set and audible. Ambu bag and emergency spare trach bedside. vent plugged into red outlet. Will continue to monitor. Addendum: 01/06/20 at 0343 by JORGE MCKEON RT Amended: Links added.
[2020-01-06 04:00] VITALS: BP 136/79
[2020-01-06] MEDS: CLOTRIMAZOLE/BETAMETASONE DIPROPIONATE 15 GM TUBE TP SCH ×3 (05:10→20:39)
[2020-01-06] MEDS: MODAFINIL 100 MG TABLET PO SCH ×2 (06:17→12:40)
[2020-01-06 06:40] LABS: BASOPHILS % (AUTO) 0.4 % (0.0-2.0); EOSINOPHILS % (AUTO) 11.1 % (0.0-6.0); HEMATOCRIT 24 % (39-51); HEMOGLOBIN 7.7 g/dL (13.5-17.5); LYMPHOCYTES # (AUTO) 0.5 /CMM (0.8-4.8); LYMPHOCYTES % (AUTO) 5.5 % (20.0-44.0); MEAN CORPUSCULAR HGB CONC 32 g/dl (31.0-36.0); MEAN CORPUSCULAR VOLUME 107 fL (80-96); MONOCYTES # (AUTO) 0.5 /CMM (0.1-1.30); MONOCYTES % (AUTO) 4.9 % (2.0-12.0); NEUTROPHILS # (AUTO) 7.8 /CMM (1.8-8.9); NEUTROPHILS % (AUTO) 78.1 % (43.0-81.0); PLATELET COUNT (AUTO) 223 /CMM (150-450); RED BLOOD CELL COUNT(AUTO) 2.25 MIL/uL (4.5-6.0)
[2020-01-06 06:56] LABS: CALCIUM, SERUM 9.7 mg/dL (8.5-10.1); CREATININE 4.7 mg/dL (0.6-1.3); MAGNESIUM 2.7 mg/dL (1.8-2.4); PHOSPHORUS 5.8 mg/dL (2.5-4.9); POTASSIUM 4.4 mmol/L (3.5-5.1)
--- NOTE | 2020-01-06 07:05 | NUR ---
PT EYES OPEN AND RESPONDS TO VERBAL STIMULI. UNABLE TO ASSESS ORIENTATION NON VERBAL. VENT SETTING PRESCRIBED. TOLERATING WELL SPO2 95%. TELE SR ON 100S. DOMINGUEZ INTACT AND DRAINING YELLOW CLEAR URINE. NPO MAINTAINED AND GT ON LOW CONTINOUS SUCTION. MEDS ALLOWED AND WILL STOP SUCTION 1 HR BEFORE AND AFTER LOADING UNIT OPERATOR POWDER CHARGING. R IJ PATENT, DRESSING INTACT. FEMORAL HD CATH INTACT. WILL MONITOR H/H AND ELECTROLYTES AND RESP STATUS THROUGHOUT SHIFT. ALL HOSPITAL POLICY SAFETY PRECAUTIONS IMPLEMENTED. WILL MONITOR NUTRITION STATUS.
--- NOTE | 2020-01-06 07:30 | NUR ---
RN NOTE PATIENT REMAINS IN ROOM RESTING COMFORTABLY. NO SIGNS OF RESPIRATORY DISTRESS, STILL ON TRACH CONNECTED TO MECH VENT, TOLERATTING WELL SATURATING >95%. PATIENT IS CLEAN , DRY AND COMFORTABLE THROUGHOUT THE SHIFT. ALL DUE MEDS GIVEN ORDERED ; PATIENT TOLERATED WELL. SAFETY MEASURES IMPLEMENTED, BED IN LOWEST POSITION, LOCKED, SIDE RAILS UP, CALL LIGHT WITHIN REACH. ENDORSED TO ELIESER RN FOR CONTINUITY OF CARE.
[2020-01-06 08:00] VITALS: BP 130/65
--- NOTE | 2020-01-06 09:00 | NUR ---
PATIENT'S BROTHER CONFIRMED APPROVAL TO ADMINISTER FLU AND PNEUMOCOCCAL VACCINE VIA TELEPHONE.
[2020-01-06 09:07] LABS: EOSINOPHILS % (MANUAL) 7 % (0-4); LYMPHOCYTES % (MANUAL) 4 % (16-48); MONOCYTES % (MANUAL) 7 % (0-11.0); NEUTROPHILS % (MANUAL) 82 (42-76)
[2020-01-06] MEDS: LEVETIRACETAM SOL (5 ML) 100 MG/ML UDC GT SCH ×2 (09:28→20:39)
[2020-01-06] MEDS: AMANTADINE HCL 100 MG CAPSULE PO SCH ×2 (09:28→17:42)
[2020-01-06] MEDS: PANTOPRAZOLE 40 MG/PACK PACK GT SCH (09:28)
[2020-01-06] MEDS: SEVELAMER CARBONATE 800 MG POWD.PACK GT SCH ×3 (09:28→17:42)
[2020-01-06] MEDS ORDERED: INFLUENZA VACCINE 2020-21 0.5 ML DISP.SYRIN IM ONE (09:30)
[2020-01-06] MEDS ORDERED: PNEUMOCOCCAL 23-VAL P-SAC VAC 0.5 ML VIAL SQ ONE (09:30)
[2020-01-06 12:00] VITALS: BP 108/57
[2020-01-06] MEDS: ACETAMINOPHEN 325 MG TABLET PO PRN (12:56)
[2020-01-06] MEDS ORDERED: TPN/PPN PER PHARMACY IV PRN (13:00)
[2020-01-06] MEDS ORDERED: TPN BAG #1 IV SCH ×4 (15:00)
[2020-01-06] MEDS ORDERED: DEXTROSE 50%-WATER 50 ML DISP.SYRIN IV PRN (15:30)
[2020-01-06 16:00] VITALS: BP 114/67
[2020-01-06] MEDS: BLOOD SUGAR DIAGNOSTIC 1 EACH STRIP IN SCH ×2 (17:42→23:51)
[2020-01-06] MEDS ORDERED: BLOOD SUGAR DIAGNOSTIC 1 EACH STRIP IN SCH (18:00)
--- NOTE | 2020-01-06 18:21 | NUR ---
PT EYES OPEN AND RESPONDS TO VERBAL STIMULI. UNABLE TO ASSESS ORIENTATION NON VERBAL. VENT SETTING PRESCRIBED. TOLERATING WELL SPO2 94%. TELE SR ON 100S. DOMINGUEZ INTACT AND DRAINING YELLOW CLEAR URINE OF 10ML FOR SHIFT. NPO MAINTAINED AND GT ON LOW CONTINUOUS SUCTION WITH 50 ML OUTPUT FOR SHIFT. AUSCULTATED FOR PLACEMENT CHECK. MEDS ALLOWED AND STOPPED SUCTION 1 HR BEFORE AND AFTER PRISON TE[employer]ER. R IJ PATENT, DRESSING INTACT, FLUSHED. RUNNING TPN ORDERED. FEMORAL HD CATH INTACT. WILL MONITOR H/H AND ELECTROLYTES AND RESP STATUS THROUGHOUT SHIFT. ALL HOSPITAL POLICY SAFETY PRECAUTIONS IMPLEMENTED. WILL MONITOR NUTRITION STATUS. ORDERS IMPLEMENTED. TURNED Q2H AND ELEVATED EXTREMITIES. WILL ENDORSE TO PM RN FOR CONTINUATION OF CARE.
--- NOTE | 2020-01-06 19:10 | NUR ---
RECEIVED PT ON BED AWAKE OPEN EYES ON TRACH VENT SETTING ORDERED SPO2 99% TELE MONITOR READS SINUS TACHY 101, NO SIGNS OF PAIN NOTED, RIJ PICC LINE PATENT AND FLUSH,WITH ONGOING TPN @ 40ML/HR RIGHT FEMORAL HD ON PLACE CLEAN DRY AND INTACT, GTUBE ON PLACE CONNECTED TO LOW INTERMITTENT SUCTION, HAVE DOMINGUEZ WITH JOYCE SEDIMENTAL URINE DRAINING VIA GRAVITY, CURRENT TEMP OF 98F, SAFETY MEASURE MAINTAINED BED ON LOWEST POSITION AND LOCKED SIDE RAILS UP WILL CONT TO MONITOR
[2020-01-06 20:00] VITALS: BP 132/85
[2020-01-06] MEDS: INSULIN REGULAR, HUMAN 100 UNIT/ML 3 ML VIAL SQ PRN (23:52)
[2020-01-07] VITALS (47 sets, daily range): BP systolic 82–147; BP diastolic 53–91
[2020-01-07] MEDS: ALBUTEROL FS 2.5 MG/3 ML VIAL.NEB NEB SCH ×4 (02:21→19:47)
[2020-01-07] MEDS: IPRATROPIUM NEB FS 0.5 MG/2.5 ML AMPUL.NEB NEB SCH ×4 (02:21→19:47)
[2020-01-07] MEDS ORDERED: TPN BAG #2 IV SCH ×2 (03:00)
[2020-01-07] MEDS: CLOTRIMAZOLE/BETAMETASONE DIPROPIONATE 15 GM TUBE TP SCH ×3 (04:16→21:00)
[2020-01-07] MEDS: MODAFINIL 100 MG TABLET PO SCH ×2 (05:18→12:30)
[2020-01-07] MEDS: BLOOD SUGAR DIAGNOSTIC 1 EACH STRIP IN SCH ×3 (05:54→18:05)
[2020-01-07] MEDS: INSULIN REGULAR, HUMAN 100 UNIT/ML 3 ML VIAL SQ PRN (05:55)
[2020-01-07 06:50] LABS: BASOPHILS # (AUTO) 0.1 /CMM (0.0-0.2); BASOPHILS % (AUTO) 0.5 % (0.0-2.0); EOSINOPHILS % (AUTO) 8.9 % (0.0-6.0); HEMATOCRIT 24 % (39-51); HEMOGLOBIN 7.7 g/dL (13.5-17.5); LYMPHOCYTES # (AUTO) 0.4 /CMM (0.8-4.8); MEAN CORPUSCULAR HGB CONC 32 g/dl (31.0-36.0); MEAN CORPUSCULAR VOLUME 106 fL (80-96); MONOCYTES # (AUTO) 0.4 /CMM (0.1-1.30); MONOCYTES % (AUTO) 3.9 % (2.0-12.0); NEUTROPHILS % (AUTO) 82.7 % (43.0-81.0); PLATELET COUNT (AUTO) 234 /CMM (150-450); RED BLOOD CELL COUNT(AUTO) 2.25 MIL/uL (4.5-6.0); WHITE BLOOD COUNT (AUTO) 10.9 K/uL (4.3-11.0)
[2020-01-07 07:06] LABS: CALCIUM, SERUM 9.5 mg/dL (8.5-10.1); CREATININE 4.9 mg/dL (0.6-1.3); MAGNESIUM 2.5 mg/dL (1.8-2.4); PHOSPHORUS 5.2 mg/dL (2.5-4.9); POTASSIUM 4.2 mmol/L (3.5-5.1)
--- NOTE | 2020-01-07 07:48 | NUR ---
television cameraman note patient in bed with trach to vent setting as ordered open both eyes , not follow any command on telemonitor st hr 120, with mercado cath to gravity with yellow benjamin , on tpn infusing as ordered rt ij tlc in place , 1 lumen unable to flush , with g tube to low intermitted suction no drainage noted, bed in lowest and locked position , safety measure observed ,call light within reach ,will monitor
[2020-01-07] MEDS: PANTOPRAZOLE 40 MG/PACK PACK GT SCH (08:06)
[2020-01-07] MEDS: LEVETIRACETAM SOL (5 ML) 100 MG/ML UDC GT SCH ×2 (08:06→21:24)
[2020-01-07] MEDS: ACETAMINOPHEN 325 MG TABLET PO PRN (08:07)
[2020-01-07] MEDS: SEVELAMER CARBONATE 800 MG POWD.PACK GT SCH ×3 (08:07→16:01)
[2020-01-07] MEDS: AMANTADINE HCL 100 MG CAPSULE PO SCH ×2 (08:14→17:00)
[2020-01-07] MEDS: ACETYLCYSTEINE 10% SOLN 400 MG/4 ML VIAL NEB SCH ×3 (08:29→23:07)
[2020-01-07 09:42] LABS: BAND % (MANUAL) 1 % (0.0-5.0); EOSINOPHILS % (MANUAL) 8 % (0-4); LYMPHOCYTES % (MANUAL) 3 % (16-48); MONOCYTES % (MANUAL) 4 % (0-11.0); NEUTROPHILS % (MANUAL) 84 (42-76)
[2020-01-07] MEDS: LORAZEPAM INJ 2 MG/ML VIAL IV PRN (10:02)
[2020-01-07 10:21] LABS: ABG BASE EXCESS -4.3 mmol/L; ABG OXYGEN SATURATION 77.6 % (92.0-98.5); ABG PCO2 40.5 mmHg (35.0-45.0); ABG PH 7.336 (7.350-7.450); ABG PO2 47.8 mmHg (75.0-100.0); AaDO2 263.1 mmHg; COHb 0.7 % (0.5-1.5); O2Hb 77.1 % (94.0-97.0); SITE, ABG Left Radial; VENT MODE, BG ac 22 550 50% +5
[2020-01-07 10:41] LABS: D-DIMER 4.17 mg/L(FEU (0.17-0.50)
--- NOTE | 2020-01-07 10:44 | NUR ---
patient desaturating ,abg done dr. ruiz aware,chnge setting to fio2 !00%,awaits icu bed,continuesly monitor.
--- NOTE | 2020-01-07 11:18 | NUR ---
teletype mechanic note ua collected as ordered
[2020-01-07] MEDS ORDERED: VANCOMYCIN 500 MG in IV D5W 100 ML IV PRN (11:30)
--- NOTE | 2020-01-07 11:59 | NUR ---
ICU CHARGE NURSE ELYSE SPOKE W/ NURSING SUP WILL KEEP PATIENT ICU OVERFLOW IN [place] FOR NOW WHILE AWAITS HEMODIALYSIS.PRIMARY RN QUYEN AWARE.
[2020-01-07] MEDS ORDERED: VANCOMYCIN 1.5 GM in IV D5W 500 ML IV ONE (12:00)
--- NOTE | 2020-01-07 12:03 | NUR ---
DR. MCDANIELS IN AGREEMENT OF PLAN OVERFOLW ICU IN [place].
[2020-01-07] MEDS: PROPOFOL 100 ML IV PRN ×2 (12:18→19:20)
--- NOTE | 2020-01-07 12:20 | NUR ---
HEMDIALYSIS AT BEDSIDE AND STARTED HD ORDERED.
--- NOTE | 2020-01-07 12:21 | NUR ---
UNABLE TO START BLOOD PATIENT TEMP >100 F,DR. MCDANIELS AWARE.
[2020-01-07 12:22] LABS: BILIRUBIN,URINE SMALL (NEGATIVE); BLOOD, URINE LARGE Ery/uL (NEGATIVE); COLOR,URINE DARK YELLO (YELLOW); LEUKOCYTE ESTERASE ,URINE MODERATE (NEGATIVE); NITRITE, URINE NEGATIVE (NEGATIVE); PH,URINE 5.5 (5.0-8.0); PROTEIN,URINE 100 mg/dl (NEGATIVE); UGLUCOSE NEGATIVE (NEGATIVE); UROBILINOGEN,URINE 0.2 EU/dL (0.2)
--- NOTE | 2020-01-07 12:23 | NUR ---
Cooling measures rendered.
--- NOTE | 2020-01-07 12:32 | NUR ---
COUNTY ORDINARY NOTE STARTED ON PROPOFOL DRIP ORDERED AND HD ORDERED ,WILL HOLD BLOOD TRANSFUSION, DR MCDANIELS NOTIFIED BECAUSE PER DR CONTRERAS HOLD BLOOD TRANSFUSION TILL HG LESS THEN 7
--- NOTE | 2020-01-07 13:06 | NUR ---
RN NOTE PER MD, DIALYSIS D/C DUE TO HYPOTENSION. DR NOTIFIED, PT TO RECEIVE NEOSYNEPHRINE
[2020-01-07 13:11] LABS: HAPTOGLOBIN 364 mg/dL (32-363)
--- NOTE | 2020-01-07 13:21 | NUR ---
ramos salcido updated of patient change of condition,emotional support given.
[2020-01-07 13:27] LABS: BACTERIA,URINE Moderate /HPF (None Seen); WBC,URINE 21-50 /HPF (0-3)
[2020-01-07 13:28] LABS: SQUAMOUS EPITHELIAL CELL,UR Few /HPF (None Seen)
[2020-01-07 13:29] LABS: YEAST,URINE Many /HPF (None Seen)
[2020-01-07] MEDS: MEROPENEM 1 G in IV NS 0.9% 100 ML IV SCH (13:30)
[2020-01-07] MEDS: PHENYLEPHRINE 50 MG in IV NS 0.9% 245 ML IV PRN (13:43)
--- NOTE | 2020-01-07 13:55 | NUR ---
manager agricultural note dr hines at bedside notified av about patient condition patient has labored respiration started on wayne and propofol drip also notified that g tube low intermitted suction with 200 greenish color noted also notified that t 101.0 ok to hold blood transfusion for now , dr zarate notified that per dr madden give blood if hg less then 7.0
--- NOTE | 2020-01-07 13:55 | NUR ---
MARKET RESEARCH CONSULTANT NOTE JULIAN DRIP STARTED ORDERED
--- NOTE | 2020-01-07 14:00 | NUR ---
icu nurse note per dr hines with possible blood transfusion if t bellow 100
[2020-01-07] MEDS ORDERED: TPN BAG #3 IV PRN ×2 (15:00)
--- NOTE | 2020-01-07 15:00 | NUR ---
agriculture scientist note ok to hold tpn for now, hd not completed patient cant tolerated ,dr palacios and dr hines notified
--- NOTE | 2020-01-07 15:06 | NUR ---
PT ARRIVED IN ICU, ROOM 253 AT 1506. PROPOFOL INFUSING AT 15MCG/KG/MIN FOR TACHYPNEA. JULIAN-SYNEPHRINE INFUSING AT 0.5MCG/KG/MIN PER MD ORDERS. COOLING BLANKET ON PATIENT, CURRENT TEMP IS 100.0 RECTALLY. TPN ON HOLD D/T NO DIALYSIS TODAY PER MD ORDERS. WILL CONTINUE TO MONITOR.
--- NOTE | 2020-01-07 15:41 | NUR ---
agricultural scientist over flow note transferred to icu by acls protocol as ordered ,report given to odilia mistry
--- NOTE | 2020-01-07 16:41 | NUR ---
RN SPOKE TO PT'S BROTHER AMILCAR ABOUT PT'S CURRENT STATUS. AMILCAR STATED THAT HE MIGHT BE CONSIDERING MAKING PATIENT COMFORT MEASURES, AFTER RN EXPLAINED IT TO HIM. HE STATED AT THE VERY LEAST HE IS LEANING TOWARD MAKING PATIENT A DNR BUT WOULD LIKE TO TALK HIS SIGNIFICANT OTHER TONIGHT AND LET US KNOW TOMORROW WHAT HE HAS DECIDED. AMILCAR STATED THAT IF PATIENT TAKES A TURN FOR THE WORSE TONIGHT AND MIGHT HAVE TO BE CODED TO PLEASE CALL HIM IF POSSIBLE TO SEE IF HE IS READY TO MAKE PATIENT A DNR. DR. MCDANIELS NOTIFIED.
--- NOTE | 2020-01-07 19:30 | NUR ---
TALENT ACQUISITION RELATIONSHIP MANAGER OPENING NOTES: Rec'd pt in bed intubated and sedated. On mechanical ventilation, tolerating settings well. No SOB or resp distress noted. ST on tele monitor. Currently TPN turned off, NPO, with GT to low intermittent suction. Mcmahon cath in place patent and draining urine via gravity. Right IJ intact and patent with Diprivan infusing at 25mcg/kg/min, Leroy infusing at 0.5mcg/kg/min. Will titrate per protocol. HETAL midline patent and flushed. Dressing c/d/i. Right femoral HD cath w/ pigtail noted. Dressing c/d/i. Safety measures in place. Will continue to monitor.
--- NOTE | 2020-01-07 19:37 | NUR ---
END OF SHIFT NOTE: PROPOFOL TITRATED FOR TACHYPNEA, CURRENTLY INFUSING AT 25 MCG/KG/MIN. JULIAN-SYNEPRHINE INFUSING AT 0.5MCG/KG/MIN. SEE NOTE REGARDING PHONE CONVERSATION WITH PT'S BROTHER. PT CHECKED ON HOURLY AND PRN BY NURSING STAFF.
--- NOTE | 2020-01-07 20:09 | NUR ---
FITNESS STUDIES TEACHER NOTE: Dr. Muniz called for update on pt. Gave update, said he will evaluate pt in morning, but most likely no permacath placement tomorrow.
--- NOTE | 2020-01-07 20:47 | NUR ---
CARDIOVASCULAR TECH NOTE: Rec'd call from Rita in lab. Blood cx came back gram pos cocci in pairs.
--- NOTE | 2020-01-07 21:18 | NUR ---
EXECUTIVE ACCOUNT MANAGER NOTE: Paged alterations manager Chris about pt's 2100 Keppra GT. Pt NPO w/ GT to low intermittent suction. No residuals noted. Also updated him on pt's blood cx results. Said ok to give. Will administer as ordered.
[2020-01-08] VITALS (78 sets, daily range): BP systolic 83–141; BP diastolic 50–70
[2020-01-08] MEDS: BLOOD SUGAR DIAGNOSTIC 1 EACH STRIP IN SCH ×3 (00:29→12:30)
[2020-01-08] MEDS: INSULIN REGULAR, HUMAN 100 UNIT/ML 3 ML VIAL SQ PRN ×2 (00:30→06:12)
[2020-01-08] MEDS: PHENYLEPHRINE 50 MG in IV NS 0.9% 245 ML IV PRN ×2 (00:32→11:18)
[2020-01-08] MEDS: PROPOFOL 100 ML IV PRN ×4 (00:39→15:24)
[2020-01-08] MEDS: IPRATROPIUM NEB FS 0.5 MG/2.5 ML AMPUL.NEB NEB SCH ×3 (01:15→12:31)
[2020-01-08] MEDS: ALBUTEROL FS 2.5 MG/3 ML VIAL.NEB NEB SCH ×3 (01:15→12:31)
[2020-01-08 04:46] LABS: BASOPHILS % (AUTO) 0.2 % (0.0-2.0); EOSINOPHILS % (AUTO) 1.9 % (0.0-6.0); HEMATOCRIT 37 % (39-51); HEMOGLOBIN 11.4 g/dL (13.5-17.5); LYMPHOCYTES # (AUTO) 0.9 /CMM (0.8-4.8); LYMPHOCYTES % (AUTO) 5.4 % (20.0-44.0); MEAN CORPUSCULAR HGB CONC 31 g/dl (31.0-36.0); MEAN CORPUSCULAR VOLUME 107 fL (80-96); MONOCYTES # (AUTO) 0.7 /CMM (0.1-1.30); MONOCYTES % (AUTO) 4.2 % (2.0-12.0); NEUTROPHILS # (AUTO) 14.2 /CMM (1.8-8.9); NEUTROPHILS % (AUTO) 88.3 % (43.0-81.0); PLATELET COUNT (AUTO) 230 /CMM (150-450); RED BLOOD CELL COUNT(AUTO) 3.41 MIL/uL (4.5-6.0); WHITE BLOOD COUNT (AUTO) 16.1 K/uL (4.3-11.0)
[2020-01-08 04:54] LABS: CREATININE 5.1 mg/dL (0.6-1.3); POTASSIUM 5.3 mmol/L (3.5-5.1)
[2020-01-08] MEDS: CLOTRIMAZOLE/BETAMETASONE DIPROPIONATE 15 GM TUBE TP SCH ×2 (05:00→12:31)
[2020-01-08 05:09] LABS: MAGNESIUM 2.4 mg/dL (1.8-2.4)
[2020-01-08] MEDS: MODAFINIL 100 MG TABLET PO SCH ×2 (06:11→12:31)
--- NOTE | 2020-01-08 06:59 | NUR ---
BUILDING OPERATOR CLOSING NOTES: No acute changes noted throughout shift. Pt remains sedated. ST on tele monitor. Right IJ TLC patent and intact. Diprivan infusing at 25mcg/kg/min. Leroy infusing at 0.7mcg/kg/min. HETAL midline patent and intact. Left femoral HD cath w/ pigtail intact. GT to low intermittent suction. Mcmahon patent and draining urine. All due meds given as ordered. Kept clean/dry. Safety measures in place. Will endorse to oncoming nurse for YANETH.
[2020-01-08] MEDS: ACETYLCYSTEINE 10% SOLN 400 MG/4 ML VIAL NEB SCH ×2 (08:05→12:31)
--- NOTE | 2020-01-08 08:20 | NUR ---
WOUND CARE CONSULT: PT NOT TURNED FOR SKIN ASSESSMENT DUE TO PT UNSTABLE AT THIS TIME. ALL SKIN PROTECTION MEASURES IN PLACE AND DISCUSSED WITH NURSING STAFF. PT IS ON [place] ISOFLEX LOW AIRLOSS BED. PT HAS MULTIPLE CO-MORBIDITIES INCLUDING RESPIRATORY FAILURE AND RENAL FAILURE. WILL SEE PT PT CONDITION PERMITS.
[2020-01-08] MEDS: SEVELAMER CARBONATE 800 MG POWD.PACK GT SCH ×2 (09:00→12:31)
[2020-01-08] MEDS: PANTOPRAZOLE 40 MG/PACK PACK GT SCH (10:12)
[2020-01-08] MEDS: LEVETIRACETAM SOL (5 ML) 100 MG/ML UDC GT SCH (10:12)
[2020-01-08] MEDS: AMANTADINE HCL 100 MG CAPSULE PO SCH (10:12)
[2020-01-08] MEDS: MEROPENEM 1 G in IV NS 0.9% 100 ML IV SCH (10:12)
[2020-01-08 11:03] LABS: BASOPHILS # (AUTO) 0.1 /CMM (0.0-0.2); BASOPHILS % (AUTO) 0.4 % (0.0-2.0); HEMATOCRIT 25 % (39-51); LYMPHOCYTES % (AUTO) 4.6 % (20.0-44.0); MEAN CORPUSCULAR HGB CONC 31 g/dl (31.0-36.0); MEAN CORPUSCULAR VOLUME 108 fL (80-96); MONOCYTES # (AUTO) 0.9 /CMM (0.1-1.30); MONOCYTES % (AUTO) 3.9 % (2.0-12.0); NEUTROPHILS # (AUTO) 19.6 /CMM (1.8-8.9); NEUTROPHILS % (AUTO) 88.1 % (43.0-81.0); PLATELET COUNT (AUTO) 259 /CMM (150-450); RED BLOOD CELL COUNT(AUTO) 2.28 MIL/uL (4.5-6.0); WHITE BLOOD COUNT (AUTO) 22.3 K/uL (4.3-11.0)
[2020-01-08 11:12] LABS: HEMOGLOBIN 7.6 g/dL (13.5-17.5)
--- NOTE | 2020-01-08 11:22 | NUR ---
CBC REDRAWN THIS AM, H/H NOT CONSISTENT WITH YESTERDAYS LAB VALUES. RESULTS OF REDRAW ARE MORE CONSISTENT HGB 7.6, HCT 25. DR. CONTRERAS AND DR. MCDANIELS NOTIFIED.
[2020-01-08 11:53] LABS: BAND % (MANUAL) 6 % (0.0-5.0); EOSINOPHILS % (MANUAL) 1 % (0-4); LYMPHOCYTES % (MANUAL) 10 % (16-48); MONOCYTES % (MANUAL) 3 % (0-11.0); MYELOCYTES % 1 % (0-0); NEUTROPHILS % (MANUAL) 79 (42-76)
[2020-01-08] MEDS ORDERED: DIGOXIN INJ 0.5 MG/2 ML AMPUL IV SCH (12:00)
--- NOTE | 2020-01-08 14:41 | NUR ---
RN SPOKE TO PT'S BROTHER AMILCAR. AMILCAR CALLED BECAUSE HE HAD NOT HEARD FROM DR. MCDANIELS AND WANTED TO MAKE PATIENT COMFORT MEASURES SO HE WILL NOT BE SUFFERING ANY LONGER. DR. MCDANIELS WAS TOO BUSY AT THIS TIME TO TALK TO HIM BUT DR. TSAI ARRIVED IN THE ICU AND TALKED TO PATIENTS BROTHER AMILCAR ON THE PHONE AND GAVE ORDERS FOR COMFORT CARE AND TERMINAL EXTUBATION AFTER MORPHINE GTT STARTED. RN SPOKE AGAIN TO PT'S BROTHER AMILCAR, HE IS RELIEVED THAT HIS BROTHER WILL BE MADE COMFORTABLE AND STATED THAT HE LIVES [address] AWAY AND WILL NOT BE ABLE TO SEE HIS BROTHER PRIOR TO HIM BEING EXTUBATED AND WISHES TO REMEMBER HIM THE WAY HE WAS BEFORE HE WAS IN THE HOSPITAL. AMILCAR REQUESTED TO BE CALLED AFTER THE PATIENT PASSES.
[2020-01-08] MEDS ORDERED: MORPHINE SULFATE PF DRIP 250 MG in IV D5W 240 ML IV PRN (15:00)
[2020-01-08] MEDS ORDERED: DC PROPOFOL WHEN EXTUBATED XX PRN (15:00)
[2020-01-08] MEDS ORDERED: MORPHINE SULFATE/PF 30 MG in IV NS 0.9% 27 ML IV PRN (15:30)
--- NOTE | 2020-01-08 17:04 | NUR ---
MORPHINE GTT STARTED AT 1620 AT 1MG/HR PER MD ORDERS. RT NOTIFIED TO EXTUBATE PATIENT. WILL DC PROPOFOL AND JULIAN WHEN PATIENT EXTUBATED.
--- NOTE | 2020-01-08 18:55 | NUR ---
TERMINAL EXTUBATION ORDER. PT'S VENT TURNED OFF. PLACED ON TRACH MASK. RN NOTIFIED.
--- NOTE | 2020-01-08 18:56 | NUR ---
END OF SHIFT NOTE: PT WAS MADE COMFORT MEASURES BY PT'S BROTHER AMILCAR. PT WAS TAKEN OFF VENT AND PUT ON 4L TRACH MASK AT 1850. JULIAN-SYNEPHRINE AND PROPOFOL TURNED OFF AND DC'D AT 1850. WILL ENDORSE TO NEXT SHIFT THAT PT'S BROTHER WOULD LIKE TO BE CALLED AFTER PT PASSES.
--- NOTE | 2020-01-08 19:30 | NUR ---
VEHICLE BODY SANDER RCD PT W/DX ENCEPHALOPATHY. PT IS COMFORT CARE ON MORPHINE DRIP. ST ON MONITOR. TEMP 100.7. SHILEY 8 W/TRACH MASK AT 4 LITERS. DOMINGUEZ CATH WITH MIN URINE OUTPUT.
--- NOTE | 2020-01-08 20:00 | NUR ---
MUNITIONS HANDLER SUPERVISOR PHARMACY DCD MORPHINE BAG THAT IS RUNNING IT IS THE INITIAL BAG BUT OKAY TO CONTINUE RUNNING AND DOCUMENTING ON DCD IV SPREADSHEET.
--- NOTE | 2020-01-08 22:00 | NUR ---
Opening Notes: Patient admitted to med surg, transferred from the ICU. Report received from charge nurse. Patient non verbal and bedbound. Patient on comfort care. Patient with trach, shiley 8, and g-tube. Patient with right upper midline, RIJ triple lumen, and right groin HD catheter. Patient on morphine drip 5 mg. VS monitored. Patient turned and repositioned. Bed locked and in lowest position. Patient continuously monitored.
--- NOTE | 2020-01-08 22:00 | NUR ---
MANAGER ADOBE TITRATED MORPHINE TO 5MG/HR PT NOTED TO BE TACHYPNEIC. PT IS COMFORT MEASURES ONLY.
[2020-01-08] MEDS ORDERED: KEY,NONCONTROL,TO KEEP IN PYXI 1 EA MC ONE ×2 (22:28→23:41)
--- NOTE | 2020-01-09 05:54 | NUR ---
Closing Notes: Patient non verbal, tachypneic. Patient on comfort care. Right upper midline, RIJ triple lumen, patent on morphine drip 5 mg. VS monitored. Mcmahon catheter in place. Patient turned and repositioned. Fall precautions observed. Patient continuously monitored.
--- NOTE | 2020-01-09 07:45 | NUR ---
MS RN Opening Notes Bedside endorsement done. Per previous shift RN, patient was transferred from ICU to MS unit, DNR/DNI for comfort care/measures. Patient is non-verbal, breathing is regular, with trach collar, shiley #8, supplemented w/ O2 at 4L/min, saturating between 85-89%. With HETAL midline, with MANAGER PRICING morphine drip of 5mg infusing as directed; RIJ triple lumen and right groin HD catheter. VS taken monitored. Safety precautions in place: bed locked and in lowest position, sr up x2, call light w/in reach. Will continue to monitor.
[2020-01-09 08:00] VITALS: BP 80/30
--- NOTE | 2020-01-09 09:06 | NUR ---
RN NOTES DR. MCDANIELS INFORMED OF PATIENT'S EXPIRATION AT 814. [facility] CALLED AND SPOKE W/ EUSEBIO; JUSTINE KAPLAN, WILL NOT PURSUE ORGAN DONATION AND WILL CALL BACK TO GIVE REFERRAL/CASE# BECAUSE THEIR SYSTEM IS DOWN. Addendum: 01/09/20 at 0912 by JAMES YORK RN CLARIFICATION: JUSTINE MIKE, WILL REVIEW CASE AND CALL BACK TO GIVE REFERRAL/CASE#
--- NOTE | 2020-01-09 09:10 | NUR ---
REGINA KAPLAN FROM [facility] CALLED BACK AND GAVE REFERRAL/CASE# [id number] Addendum: 01/09/20 at 1012 by JAMES YORK RN PER EUSE[employer], WILL NOT PURSUE ORGAN DONATION/PROCUREMENT.
--- NOTE | 2020-01-09 09:46 | NUR ---
RN NOTES CALLED AMILCAR TRINIDAD, BROTHER AND JUAN, AND INFORMED ABOUT PATIENT'S PASSING.
--- NOTE | 2020-01-09 10:11 | NUR ---
RN NOTES POST-MORTEM CARE DONE, ASSISTED BY OLIVA.
--- NOTE | 2020-01-09 10:14 | NUR ---
RN NOTES NO PATIENT BELONGINGS NOTED AT BEDSIDE.
[2020-01-09] MEDS ORDERED: KEY,NONCONTROL,TO KEEP IN PYXI 1 EA MC ONE (10:47)
== END 2020-01-09 08:15 | disposition expired | DRG 5 ==
LOC: ER 12:09 → ICU 15:35 → TELE1 12-21 18:37 → ICU 12-23 07:08 → TELE1 01-02 08:33 → ICUOV 01-07 11:44 → ICU 01-07 15:03 → MED 01-08 22:12
PROVIDERS: ADMIT Internal Medicine; ATTEND Nurse Practitioner Acute Care
PROC: 0BH17EZ Insertion of Endotracheal Airway into Trachea, Via Natural or Artificial Opening (ICD-10-PCS; principal; 2019-12-08)
PROC: 5A1955Z Respiratory Ventilation, Greater than 96 Consecutive Hours (ICD-10-PCS; 2019-12-08)
PROC: 05HY33Z Insertion of Infusion Device into Upper Vein, Percutaneous Approach (ICD-10-PCS; 2019-12-13)
PROC: 0B110F4 Bypass Trachea to Cutaneous with Tracheostomy Device, Open Approach (ICD-10-PCS; 2019-12-20)
PROC: 0DH63UZ Insertion of Feeding Device into Stomach, Percutaneous Approach (ICD-10-PCS; 2019-12-22)
PROC: 30233N1 Transfusion of Nonautologous Red Blood Cells into Peripheral Vein, Percutaneous Approach (ICD-10-PCS; 2019-12-29)
DX: A41.9 Sepsis, unspecified organism (principal); I60.9 Nontraumatic subarachnoid hemorrhage, unspecified; I11.0 Hypertensive heart disease with heart failure; I50.33 Acute on chronic diastolic (congestive) heart failure; I21.4 Non-ST elevation (NSTEMI) myocardial infarction; G93.41 Metabolic encephalopathy; N17.0 Acute kidney failure with tubular necrosis; Z59.0 Homelessness; Z51.5 Encounter for palliative care; D69.6 Thrombocytopenia, unspecified; Z66 Do not resuscitate; M62.82 Rhabdomyolysis; K70.9 Alcoholic liver disease, unspecified; K76.0 Fatty (change of) liver, not elsewhere classified; R13.10 Dysphagia, unspecified; E87.6 Hypokalemia; D53.9 Nutritional anemia, unspecified; E83.39 Other disorders of phosphorus metabolism; D68.9 Coagulation defect, unspecified; E78.5 Hyperlipidemia, unspecified; E83.42 Hypomagnesemia; E87.2 Acidosis; F12.90 Cannabis use, unspecified, uncomplicated; J98.11 Atelectasis; I62.00 Nontraumatic subdural hemorrhage, unspecified; G93.89 Other specified disorders of brain; K56.7 Ileus, unspecified; B37.49 Other urogenital candidiasis; J69.0 Pneumonitis due to inhalation of food and vomit; R65.21 Severe sepsis with septic shock; E22.2 Syndrome of inappropriate secretion of antidiuretic hormone; Z87.820 Personal history of traumatic brain injury; K56.600 Partial intestinal obstruction, unspecified as to cause; K57.30 Diverticulosis of large intestine without perforation or abscess without bleeding; J96.01 Acute respiratory failure with hypoxia; F10.10 Alcohol abuse, uncomplicated; Y90.0 Blood alcohol level of less than 20 mg/100 ml; D63.8 Anemia in other chronic diseases classified elsewhere
CPT/HCPCS: 31720; 36415; 36600; 43246; 70450-TC; 70496-TC; 71045-TC; 74018; 74250-TC; 76705-TC; 76770-TC; 80048-TC; 80053-TC; 80061-TC; 80076-TC; 80202-TC; 80305; 81000-TC; 82140-TC; 82247-TC; 82248-TC; 82272-TC; 82533; 82550-TC; 82553; 82570-TC; 82728-TC; 82784; 82803-TC; 82962-TC; 83010; 83540-TC; 83605-TC; 83615-TC; 83735-TC; 83880; 84100-TC; 84132-TC; 84155; 84155-TC; 84165; 84300-TC; 84439-TC; 84443-TC; 84478-TC; 84484-TC; 85025-TC; 85045-TC; 85385-TC; 85396; 85610-TC; 85730-TC; 86140-TC; 86334; 86706; 86803; 86850-TC; 86880-TC; 87040-TC; 87070-TC; 87081-TC; 87086-TC; 87186-TC; 87340; 90732; 90935-TC; 93307-TC; 94002-TC; 94003-TC; 94640-TC; 94664-TC; 94760-TC; 94762-TC; 94799-TC; 95819-TC; 99082-TC; A4216; A4217; A6253; A6403; A7526; C1750; C1751; G0378; G0480; J0330; J0456; J0610; J0692; J0696; J1160; J1720; J1815; J1940; J1953; J2060; J2185; J2270; J2274; J2370; J2405; J2543; J2704; J2765; J2916; J2930; J3370; J3475; J3480; J3490; J7030; J7040; J7050; J7060; P9016-BL; P9047; Q2036; Q9963; U0003